=== PATIENT | female | born 1945 | race Caucasian/White ===

== ENCOUNTER 2024-07-04 05:21 | Inpatient (IN) | payer MEDICARE, OTHER, SELFPAY ==
[2024-07-03 22:47] VITALS: BP 119/61
[2024-07-03 23:42] LABS: COVID-19 Antigen Negative (Negative)
[2024-07-04] VITALS (20 sets, daily range): BP systolic 93–146; BP diastolic 39–75
[2024-07-04 00:28] LABS: ALT (SGPT) < 10 U/L (0-35); AST (SGOT) 23 U/L (14-36); Alkaline Phosphatase 68 U/L (38-126); Blood Urea Nitrogen 40 mg/dl (7-17); Calcium 8.4 mg/dl (8.4-10.2); Carbon Dioxide 26 mmol/L (22-30); Chloride 104 mmol/L (98-107); Estimated Creatinine Clearance 23 ml/min; Glucose 169 mg/dl (70-99); Potassium 3.9 mmol/L (3.5-5.1); Sodium 139 mmol/L (135-145); Total Bilirubin 0.6 mg/dl (0.2-1.3); Total Protein 6.2 g/dl (6.3-8.2); eGFR 28.13
[2024-07-04 00:35] LABS: % Basophils 0.6 % (0-2); % Eosinophils 0.1 % (0-6); % Immature Granulocytes 1.5 % (0-0.5); % Monocytes 5.8 % (1.7-9.3); Absolute Immature Granulocytes 0.1 10^3/uL (0-0.05); Absolute Lymphocytes 1.3 10^3/uL (1.2-3.4); Absolute Monocytes 0.4 10^3/uL (0.1-0.6); Absolute Neutrophils 4.9 10^3/uL (1.4-6.5); Hematocrit 34.8 % (37.0-47.0); Hemoglobin 10.9 g/dL (12.0-16.0); Mean Corp Hgb Conc. 31.3 g/dL (33.0-37.0); Mean Corpuscular Volume 105.5 fL (81.0-99.0); Mean Platelet Volume 10.5 fL (7.4-10.4); Nucleated Red Blood Cells % 0 %; Platelet Count 172 10^3/uL (130-400); Red Cell Dist. Width 13.4 % (11.5-14.5); White Blood Cell Count 6.7 10^3/uL (4.8-10.8)
[2024-07-04 00:38] LABS: NT-proBNP 8670 pg/ml
--- NOTE | 2024-07-04 01:52 | ED.GENMED ---
History of Present Illness
General
Chief Complaint: Breathing Problem
Time Seen by Provider: 07/04/24 01:06
History of Present Illness
History of Present Illness:
Patient is a 79-year-old woman with history of CHF, hypertension, hyperlipidemia presenting to the emergency department shortness of breath. Patient states that she has been feeling more short of breath as been having a productive cough. No
fevers. No chest pain. She has been compliant with her Eliquis. She does state that she is on a water pill But does state that she feels slightly swollen. Per medics her facility found her to have oxygen saturation in the mid 80s so they called
EMS. On their arrival they placed her on nasal cannula and brought her to the emergency department for further evaluation.
Past History
Past History
ED Past Medical History: CAD, CHF, GERD, HTN, Hypercholesterolemia, NIDDM, Psychiatric, Other (Anemia) and Other
ED Past Surgical History: Gynecological (Hysterectomy) and Orthopedic (Bilateral hip replacements, bilateral knee replacements, rotator cuff repair)
Social History
Tobacco: Non-smoker
Alcohol: None
Personal:
Living: [facility] ([facility])
Employment: Retired
Family History
Family History: Other (Noncontributory)
Phy Exam
Physical Exam
Physical Exam:
GENERAL: in no acute distress
HEENT: normocephalic, extraocular movements intact, moist oral mucosa
NECK: normal inspection
RESPIRATORY: no respiratory distress, crackles in all lung jarrett
CARDIOVASCULAR: regular rate and rhythm
ABDOMEN/: soft, non-distended, non-tender to palpation, no rebound or guarding
EXTREMITIES: non-tender, mild edema/swelling
NEUROLOGIC: awake and alert, moves all extremities
SKIN: warm
Scores
Heart Failure Risk
Heart Failure Risk Score: Yes
History of Stroke or TIA: No
History of intubation for respiratory distress: No
Heart rate on ED arrival >/= 110: No
SaO2 <90% on arrival on room air: Yes
HR >/=110 during 3min walk test (or too ill to perform test): Yes
ECG has acute ischemic changes: No
Urea >/=12mmol/L (BUN 33.6mg/dL): Yes
Serum CO2>/=35mmol/L: No
Troponin I or T elevated to NC Level (0.4mg/dL): No
NT-proBNP >/=5,000ng/L (5,000pg/ml): Yes
HF Risk Score: 5
Admission Status: VERY HIGH RISK 39.8% Consider admission to hospital
Course
Orders/Labs/Results
Orders:
Orders
07/03/24 22:53
EKG [Electrocardiogram (*1)] Urgent
Reason for Study: Shortness of Breath
Complete Blood Count/With Diff Urgent
Comprehensive Metabolic Panel Urgent
Pro-BNP [NT-proBNP] Urgent
07/03/24 22:54
EKG- Treatment ONCE
07/03/24 23:08
COVID-19 Antigen Urgent
Source: Nasal Swab
Influenza A+B Rapid Molecular Urgent
YESSENIA Source: Nasal Swab
Specimen Description:
07/04/24 01:06
CR Chest - 2 Views Urgent
Comment:
Reason For Exam: sob
07/04/24 02:22
Furosemide [Lasix] 20 mg IV NOW STA
Abnormal Lab Results
07/04/24 07/04/24
00:04 00:05
RBC 3.30 L 10^6/uL
(4.20-5.40)
Hgb 10.9 L g/dL
(12.0-16.0)
Hct 34.8 L %
(37.0-47.0)
MCV 105.5 H fL
(81.0-99.0)
MCH 33.0 H pg
(27.0-31.0)
MCHC 31.3 L g/dL
(33.0-37.0)
MPV 10.5 H fL
(7.4-10.4)
Abs Immat Gran (auto) 0.1 H 10^3/uL
(0-0.05)
Immature Gran % 1.5 H %
(0-0.5)
Lymphocytes % 19.0 L %
(20.5-51.1)
BUN 40 H mg/dl
(7-17)
Creatinine 1.8 H mg/dL
(0.6-1.0)
Glucose 169 H mg/dl
(70-99)
Total Protein 6.2 L g/dl
(6.3-8.2)
Albumin 3.0 L g/dl
(3.5-5.0)
07/04/24 00:05
07/04/24 00:04
Vital Signs
Initial and Last Documented VS:
Initial Vital Signs
Temp Pulse Ox
98 F 96
07/03/24 22:46 07/03/24 22:46
Last Documented Vital Signs
Temp Pulse Resp BP Pulse Ox
98.2 F 90 26 125/58 96
07/04/24 01:16 07/04/24 00:02 07/04/24 00:02 07/04/24 00:02 07/04/24 00:02
MDM/Problems Addressed
Differential Diagnosis Includes:
Patient is a 79-year-old female with history of CHF presenting to the emergency department with shortness of breath and a productive cough. On arrival here patient requiring 2 L nasal cannula. She does have fine rales in all lung jarrett. Concern
for CHF exacerbation versus pneumonia versus viral. Considered PE though less likely as she is on a blood thinner. Blood work obtained prior to my evaluation does show significantly elevated BNP EKG per my interpretation normal sinus rhythm. Will
obtain chest x-ray. COVID flu negative.
*Critical Care Note
Total Time (30-74mins, 75-104mins- exclusive of procedures): Not Applicable
Update Note
Update Note:
Chest x-ray per my interpretation with mild pulmonary congestion. Possible right lower lobe opacity the patient is afebrile with a normal white count so we will hold off on on antibiotic. Patient is on 20 mg of Lasix so we will give that IV.
Discussed with hospitalist who accepted patient to their service
ED Attending Note
-
Portions of this chart may have been created with voice recognition software.� Occasional wrong word or��sound alike� substitutions may have occurred due to the inherent limitations of voice recognition software.
Discharge Plan
Departure
Patient Disposition: Admit
Date of Disposition: 07/04/24
Time of Disposition: 02:24
Presentation/result/management discussed w/ accepting MD/DO: Hospitalist
Discharge Problem:
CHF exacerbation
Prescriptions:
No Action
Eliquis 2.5 MG tablet
2.5 mg PO BID
cyanocobalamin (vitamin B-12) 1,000 MCG tablet
1,000 mcg PO DAILY
magnesium 250 MG tablet
500 mg PO FR
carvedilol 6.25 MG tablet
12.5 mg PO BID
atorvastatin 10 MG tablet
10 mg PO QPM
estradiol 1 MG tablet
1 mg PO DAILY
fluticasone propionate 1 SPRAY spray,suspension
1 spray intranasal BID
furosemide 20 MG tablet
20 mg PO DAILY
acetaminophen 325 MG tablet
650 mg PO Q4HPRN PRN (Reason: mild pain/ fever>100.5F) 0RF
bisacodyl [OneLAX Bisacodyl] 10 MG suppository
10 mg ND DAILYPRN PRN (Reason: if mom ineffective) 0RF
insulin aspart U-100 100 unit/mL Solution
0 unit SC ACHS
Rx Instructions:
151-200=3units, 201-250=5units, 251-300=8units, 301-350=10units
Fleet Enema 19-7 gram/118 mL Enema
118 ml ND DAILYPRN PRN (Reason: if no bm aftr dulcolax)
duloxetine [Cymbalta] 30 mg Capsule,Delayed Release(Dr/Ec)
60 mg PO DAILY
polyethylene glycol 3350 17 GRAMS powder in packet
17 grams PO DAILY
tamsulosin 0.4 MG capsule
0.4 mg PO DAILY
pantoprazole 40 MG tablet,delayed release (DR/EC)
40 mg PO DAILY
sodium bicarbonate 650 mg Tablet
650 mg PO BID Qty: 28 0RF
sennosides [senna] 8.6 mg Tablet
17.2 mg PO HS
doxycycline hyclate 100 mg Capsule
100 mg PO BID
Rx Instructions:
end 07/05/2024
insulin glargine 100 unit/mL Solution
14 unit SC HS
ammonium lactate [AmLactin] 12 % Lotion
1 applic TOPICAL DAILY
guaifenesin 600 mg Tablet Extended Release
600 mg PO BID
Rx Instructions:
end date 07/07/2024
dextrose [Glutose-15] 40 % Gel
15 g PO Q1 PRN (Reason: hypoglycemic )
loperamide [Imodium A-D] 2 mg Tablet
2 mg PO Q6H PRN (Reason: diarrhea)
melatonin 3 mg Tablet
6 mg PO HS
levothyroxine 25 mcg Tablet
25 mcg PO DAILY
insulin aspart U-100 100 unit/mL Solution
3 unit SC ACHS
ferrous sulfate 325 mg (65 mg iron) Tablet
325 mg PO BID
Milk of Magnesia-Cascara Suspension
30 ml PO Q3D PRN (Reason: constipation)
mupirocin 2 % Ointment
TOPICAL DAILY
Rx Instructions:
end date 07/10/2024
Throat Lozenges Lozenge
1 mohsen MUCOUS MEMBRANE Q30M PRN (Reason: cough)
menthol-zinc oxide [Moisture Barrier Ointment] 0.44-20.6 % Ointment
TOPICAL DAILY
glucagon HCl [Glucagon (HCl) Emergency Kit] 1 mg Recon Soln
1 mg SC Q30M PRN (Reason: hypoglycemia)
Florastor
Referrals:
UNKNOWN,NO INTERVIEW [Family Provider] -
Interventions
Interventions:
*Risk Screen - Suicide Last Done: 07/03/24 22:46
*General Assessment Last Done: 07/03/24 22:46
*Neglect/Abuse Screening Last Done: 07/03/24 22:46
*ED- Fall Risk Assessment Last Done: 07/03/24 22:46
*ED COVID-19 Vaccine History Last Done: 07/03/24 22:46
ED- Cardiac Assessment Last Done: 07/03/24 22:46
ED- Pulmonary Assessment Last Done: 07/03/24 22:46
Discharge Date and Time
Print Language: SERBIAN
[2024-07-04] MEDS: LASIX 20 MG IV (02:36)
--- NOTE | 2024-07-04 04:52 | HPS.HSE ---
Family Physician
-
Family Physician: NO INTERVIEW UNKNOWN
Chief Complaint
-
Shortness of breath
History of Present Illness
This is a 79-year-old female past medical history of insulin-dependent diabetes, hypertension, CHF with preserved EF, obesity, CKD 4, rheumatoid arthritis presenting to the emergency department with shortness of breath.
Patient quite fatigued and sleepy when I spoke to her she was not able to provide much history. According to the transfer report the patient was transferred due to productive cough and rhonchi. She has some generalized malaise. The measured pulse
ox and was in the low 80s. She was given DuoNebs 4:30 PM with reports treatment pulse ox of 89%. She is not on home O2 at baseline. Did not describe any fevers or chills. She has not had any aspiration. It appears she was started on respiratory
tx with doxycycline and cough medications prior to transfer to ED.
In the emergency department she was hypoxic requiring 2 L satting 95%. Blood pressure was 115/60 with a pulse of 82. ECG shows normal sinus rhythm at a rate of 1 and PACs. BNP was elevated at over 8000. X-ray shows bilateral interstitial
infiltrates mild prominent on the right. CBC was unremarkable with a hemoglobin of 10.9 normal WBCs and platelets. Electrolytes were stable. BUN and creatinine were 40 and 1.8 which is similar to her baseline. Negative COVID and flu test.
Medical History
Past Medical History
Past Medical History: Reports Other (Hypertension, hyperlipidemia, CKD stage III, ambulatory dysfunction due to right knee bob wound back 2019, CHF, GERD, CAD, DVT, C. difficile in the past.)
Past Surgical History: Reports Other (Hysterectomy, bilateral hip replacement, bilateral knee replacement, rotator cuff repair, IVC filter.)
Social History
Tobacco: Non-smoker
Alcohol: None
Drug: None
Family History
Family History: Other (No premature CAD)
Allergies / Home Medications
Allergies reflects when Allergies were last updated in [facility].
Home Medications with original date entered in [facility]
Allergy/Medication List:
Allergies
Allergy/AdvReac Type Severity Reaction Status Date / Time
daptomycin Allergy CK>5000 Verified 07/03/24 22:45
doxylamine Allergy leg Verified 07/03/24 22:45
weakness
lactose Allergy INTOLERANT Verified 07/03/24 22:45
morphine Allergy Nausea / Verified 07/03/24 22:45
Vomiting
Penicillins Allergy Swelling/ch Verified 07/03/24 22:45
ildhood
Home Medications
apixaban 2.5 mg tablet (Eliquis) 2.5 mg PO BID Blood clot prevention/tx 11/23/20
cyanocobalamin (vitamin B-12) 1,000 mcg tablet 1,000 mcg PO DAILY Supplement 12/19/20
magnesium 250 mg tablet 500 mg PO FR Supplement 12/19/20
atorvastatin 10 mg tablet 10 mg PO QPM High cholesterol 05/18/21
carvedilol 6.25 mg tablet 12.5 mg PO BID Heart disease/condition 05/18/21
estradiol 1 mg tablet 1 mg PO DAILY Hormonal agent 05/18/21
fluticasone propionate 50 mcg/actuation nasal spray,suspension 1 spray intranasal BID Congestion 05/18/21
furosemide 20 mg tablet 20 mg PO DAILY Fluid retention/Swelling 05/19/21
acetaminophen 325 mg tablet 650 mg (2 x 325 mg) PO Q4HPRN PRN mild pain/ fever>100.5F 05/27/21
bisacodyl 10 mg rectal suppository (OneLAX Bisacodyl) 10 mg OR DAILYPRN PRN if mom ineffective 05/27/21
duloxetine 30 mg capsule,delayed release (Cymbalta) 60 mg PO DAILY Mental Health/Anxiety 01/18/23
insulin aspart U-100 100 unit/mL subcutaneous solution 0 unit SC ACHS Diabetes 01/18/23
pantoprazole 40 mg tablet,delayed release 40 mg PO DAILY Gastrointestinal Issue 01/18/23
polyethylene glycol 3350 17 gram oral powder packet 17 grams PO DAILY Constipation 01/18/23
sodium phosphates 19 gram-7 gram/118 mL enema (Fleet Enema) 118 ml OR DAILYPRN PRN if no bm aftr dulcolax 01/18/23
tamsulosin 0.4 mg capsule 0.4 mg PO DAILY Urinary Issue 01/18/23
sodium bicarbonate 650 mg tablet 650 mg PO BID #28 tabs 01/22/23
Florastor 07/04/24
ammonium lactate 12 % lotion (AmLactin) 1 applic topical DAILY 07/04/24
phongara sagrosauraa-mag hydroxide oral suspension 30 ml PO Q3D PRN constipation 07/04/24
dextrose 40 % oral gel (Glutose-15) 15 g PO Q1 PRN hypoglycemic 07/04/24
doxycycline hyclate 100 mg capsule 100 mg PO BID 07/04/24
ferrous sulfate 325 mg (65 mg iron) tablet 325 mg PO BID 07/04/24
glucagon HCl 1 mg solution for injection (Glucagon (HCl) Emergency Kit) 1 mg SC Q30M PRN hypoglycemia 07/04/24
guaifenesin 600 mg tablet,extended release 600 mg PO BID 07/04/24
insulin aspart U-100 100 unit/mL subcutaneous solution 3 unit SC ACHS 07/04/24
insulin glargine 100 unit/mL subcutaneous solution 14 unit SC HS 07/04/24
levothyroxine 25 mcg tablet 25 mcg PO DAILY 07/04/24
loperamide 2 mg tablet (Imodium A-D) 2 mg PO Q6H PRN diarrhea 07/04/24
melatonin 3 mg tablet 6 mg PO HS 07/04/24
menthol 0.44 %-zinc oxide 20.6 % topical ointment (Moisture Barrier Ointment) topical DAILY 07/04/24
menthol-sorbitol lozenges 1 mohsen mucous membrane Q30M PRN cough 07/04/24
mupirocin 2 % topical ointment topical DAILY 07/04/24
sennosides 8.6 mg tablet (senna) 17.2 mg PO HS 07/04/24
Review of Systems
-
Unable to obtain full review of systems at this time due to: Patient Non-verbal
Physical Exam
Vital Signs
Vital Signs
Temp Pulse Resp BP Pulse Ox
98.2 F 82 24 114/59 96
07/04/24 01:16 07/04/24 02:36 07/04/24 02:23 07/04/24 02:36 07/04/24 02:23
Physical Exam
General: No Apparent Distress and Morbidly Obese
HEENT: NormoCephalic, Anicteric, Moist mucous membranes, Atraumatic and Oxygen
Respiratory: Clear (Clear anteriorly, could not move around to auscultate posteriorly)
Cardiac: S1/S2 and Regular Rhythm
Breast: Deferred by me
GI: Soft, Non Tender, Non Distended and Normal Bowel Sounds
Rectal: Deferred by Provider
Genito-urinary: Deferred by me
Musculoskeletal: No Clubbing, No Cyanosis, Edema, Left Lower Extremity (1+) and Edema, Right Lower Extremity (1+)
Skin: Warm and Other (Right foot second toe wound clean dry and intact, dressing change reported as 416)
Neuro: Nonfocal/grossly intact and Other (Patient very sleepy but easily arousable, able to answer simple questions but then goes back to sleep. Unable to participate fully in examination.)
Hematologic/Lymphatic: Lymphadenopathy
Psych: Calm
Laboratory Results
-
07/04/24 00:05
07/04/24 00:04
Laboratory Results
Total Bilirubin 0.6 mg/dl (0.2-1.3) 07/04/24 00:04
AST 23 U/L (14-36) 07/04/24 00:04
ALT < 10 U/L (0-35) 07/04/24 00:04
Alkaline Phosphatase 68 U/L (38-126) 07/04/24 00:04
Data Reviewed
-
Diagnostic Radiology: Image Personally Visualized and interpreted
Medical Tests (Nuc Med, Echo, EKG etc): Image Personally Visualized and interpreted
Lab Data: Labs Reviewed by me
Old Records: Reviewed
Impression/Plan
-
IMPRESSION:
This is a 79-year-old female with history of CKD stage IV, CHF with preserved EF, last EF was 74% with diastolic dysfunction, morbid obesity, insulin-dependent diabetes who is here from [facility] for shortness of breath and hypoxia. She has no
chest pain. ECG is nonischemic. Troponin measured. Her BNP is elevated at 8000 which is higher than the chronically elevated levels of around 3-5000. The x-ray with bilateral infiltrates consistent with pulmonary edema. Exam shows 1+ bilateral
lower extremity edema. No flu/covid.
PLAN:
1. CHF exacerbation - Suspect cough and hypoxia 2/2 CHF exacerbation rather than acute infection although possibility remains
- admit to telemetry
- continue lasix 40mg iv q 12 for now
- follow creatinine, i/os and daily weights
- incentive spirometry and duonebs
- check procalcitonin. Start abx if positive or patient febrile.
- echo in am
- cardiology consultation
2. CKD - Patient at baseline creatinine compared to prior
- avoid nephrotoxins
- monitor creatinine with more aggressive diuresis above
- renal dose medications
- continue tamsulorin for reflux uropathy
- continue bicarb orally for now
- no indication for nephrology consult
3. DM II
- continue insulin regimen, 14 lantus hs, 3 aspart ac
- low dose sliding scale insulin achs
DVT PPX - apixaban 2.5 bid
Code status - Full Code
[2024-07-04 07:09] LABS: Blood Urea Nitrogen 41 mg/dl (7-17); Calcium 8.5 mg/dl (8.4-10.2); Carbon Dioxide 27 mmol/L (22-30); Chloride 104 mmol/L (98-107); Estimated Creatinine Clearance 22 ml/min; Glucose 146 mg/dl (70-99); Magnesium 1.7 mg/dl (1.6-2.3); Potassium 3.9 mmol/L (3.5-5.1); Sodium 142 mmol/L (135-145); eGFR 26.36
[2024-07-04 07:26] LABS: Procalcitonin 0.14 ng/ml (0.0-0.25)
[2024-07-04 07:40] LABS: TSH Reflex To Free T4 1.33 uIU/ml (0.47-4.68)
--- NOTE | 2024-07-04 08:46 | CON.CAR ---
Consultation
Consultation Request
Date/Time Consultation Requested: 07/04/24 5:59
Date/Time Consultation Performed: 07/04/24 8:47
Requesting Provider: Bonnie Jhaveri MD
Performing Provider: Jose Antonio Catalan MD
Reason for Consultation: concern for CHF
Medical History
-
Chief Complaint: SOB, cough
History of Present Illness:
Jocelyn Huitron is an 79-year-old female (previously known to Dr. 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
hypertension, rheumatoid arthritis, fibromyalgia, renal insufficiency, obesity, and dementia. She presents to the ER for shortness of breath and productive cough, found to have hypoxia at her facility. She does not wear oxygen normally but is
requiring nasal cannula here. She reports that her cough is somewhat improved. She denies swelling or orthopnea. She was given 20 mg IV Lasix in the ER.
Past Medical History
Past Medical History: Other (as above)
Social History
Tobacco: Non-Smoker
Personal: Single
Living: Prison
Family History
Family History: Reviewed & Not Pertinent
Allergies / Home Medications
Allergy/AdvReac Type Severity Reaction Status Date / Time
daptomycin Allergy CK>5000 Verified 07/03/24 22:45
doxylamine Allergy leg Verified 07/03/24 22:45
weakness
lactose Allergy INTOLERANT Verified 07/03/24 22:45
morphine Allergy Nausea / Verified 07/03/24 22:45
Vomiting
Penicillins Allergy Swelling/ch Verified 07/03/24 22:45
ildhood
�Medication �Instructions �Recorded �Confirmed �Type
apixaban 2.5 mg tablet (Eliquis) 2.5 mg PO BID Blood clot 11/23/20 07/04/24 History
prevention/tx
cyanocobalamin (vitamin B-12) 1,000 mcg PO DAILY Supplement 10/03/21 04/18/25 History
1,000 mcg tablet
magnesium 250 mg tablet 500 mg PO FR@0800 Supplement 12/19/20 07/04/24 History
atorvastatin 10 mg tablet 10 mg PO HS High cholesterol 05/18/21 07/04/24 History
carvedilol 6.25 mg tablet 12.5 mg PO BID Heart 05/18/21 07/04/24 History
disease/condition
estradiol 1 mg tablet 1 mg PO DAILY Hormonal agent 05/18/21 07/04/24 History
fluticasone propionate 50 1 spray intranasal BID Congestion 05/18/21 07/04/24 History
mcg/actuation nasal
spray,suspension
acetaminophen 325 mg tablet 650 mg (2 x 325 mg) PO Q4HPRN PRN 05/27/21 07/04/24 Rx
mild pain/ fever>100.5F
bisacodyl 10 mg rectal suppository 10 mg GA DAILYPRN PRN if mom 05/27/21 07/04/24 Rx
(OneLAX Bisacodyl) ineffective
duloxetine 30 mg capsule,delayed 60 mg PO DAILY Mental 01/18/23 07/04/24 History
release (Cymbalta) Health/Anxiety
pantoprazole 40 mg tablet,delayed 40 mg PO DAILY Gastrointestinal 01/18/23 07/04/24 History
release Issue
polyethylene glycol 3350 17 gram 17 grams PO DAILY Constipation 01/18/23 07/04/24 History
oral powder packet
sodium phosphates 19 gram-7 118 ml GA DAILYPRN PRN if no bm 01/18/23 07/04/24 History
gram/118 mL enema (Fleet Enema) aftr dulcolax
tamsulosin 0.4 mg capsule 0.4 mg PO DAILY Urinary Issue 01/18/23 07/04/24 History
sodium bicarbonate 650 mg tablet 650 mg PO BID #28 tabs 01/22/23 07/04/24 Rx
Saccharomyces boulardii 250 mg 250 mg PO DAILY 07/04/24 07/04/24 History
capsule (Florastor)
ammonium lactate 12 % lotion 1 applic topical DAILY bue/ble 07/04/24 07/04/24 History
(AmLactin)
doxycycline hyclate 100 mg capsule 100 mg PO BID 07/04/24 07/04/24 History
eucalyptus-menthol oral mucosal 3.1 mg mucous membrane [id number] PRN 07/04/24 07/04/24 History
lozenge cough
ferrous sulfate 325 mg (65 mg 325 mg PO BID 07/04/24 07/04/24 History
iron) tablet
furosemide 20 mg tablet (Lasix) 20 mg PO DAILY 07/04/24 07/04/24 History
glucagon HCl 1 mg solution for 1 mg SC Q30M PRN hypoglycemia 07/04/24 07/04/24 History
injection (Glucagon (HCl)
Emergency Kit)
guaifenesin 600 mg tablet, 600 mg PO BID 07/04/24 07/04/24 History
extended release 12 hr (Mucinex)
insulin aspart U-100 100 unit/mL 3 unit SC AC 07/04/24 07/04/24 History
subcutaneous solution
insulin glargine 100 unit/mL 14 unit SC HS 07/04/24 07/04/24 History
subcutaneous solution
ipratropium 0.5 mg-albuterol 3 mg 3 ml inhalation R Q6HPRN PRN sob 07/04/24 07/04/24 History
(2.5 mg base)/3 mL nebulization
soln
levothyroxine 25 mcg tablet 25 mcg PO DAILY 07/04/24 07/04/24 History
loperamide 2 mg tablet (Imodium 2 mg PO Q6HPRN PRN diarrhea 07/04/24 07/04/24 History
A-D)
magnesium hydroxide 400 mg/5 mL 2,400 mg PO DAILYPRN PRN if no bm 07/04/24 07/04/24 History
oral suspension (Milk of Magnesia) by 3rd day
melatonin 3 mg tablet 6 mg PO HS 07/04/24 07/04/24 History
menthol 0.44 %-zinc oxide 20.6 % 1 applic topical TID incontinence 07/04/24 07/04/24 History
topical ointment (Moisture Barrier care
Ointment)
mupirocin 2 % topical ointment 1 applic topical DAILY right great 07/04/24 07/04/24 History
toe
sennosides 8.6 mg tablet (senna) 17.2 mg PO HS 07/04/24 07/04/24 History
sodium phosphates 19 gram-7 118 ml GA DAILYPRN PRN if no bm 07/04/24 07/04/24 History
gram/118 mL enema (Fleet Enema) aftr dulolcax
Review of Systems
-
Unable to obtain full review of systems at this time due to: Dementia
Physical Exam
Vital Signs
Temp Pulse Resp BP Pulse Ox
98.2 F 84 21 125/51 93
07/04/24 01:16 07/04/24 07:30 07/04/24 07:30 07/04/24 07:00 07/04/24 05:15
Lab Results
07/04/24 00:05
07/04/24 06:33
Jwr-[id number]-Hilpxwayjif Pept 8670 pg/ml 07/04/24 00:04
Physical Exam
General: Other (Chronically ill-appearing, possibly bedbound)
HEENT: Normocephalic
Respiratory: Crackles, Rhonchi and Non Labored Respirations
Cardiac: S1/S2; Negative Murmur or Peripheral Edema
Impression / Plan
-
Jocelyn Huitron is an 79-year-old female (previously known to Dr. León, last seen in our office 2020) with HFpEF, hypertension, insulin-dependent diabetes, pulmonary hypertension, CKD, and dementia. Cardiology is consulted due to concern for
HFpEF exacerbation.
Acute on chronic HFpEF
-Severe exacerbation requiring IV diuresis and close monitoring of labs and telemetry
-Presented with cough and shortness of breath. BNP 8670. CXR with interstitial edema. Weight fairly stable from prior admissions.
-Continue diuresis with 40 mg IV Lasix twice daily (suspect she will not need a lot of diuresis given weight at her baseline)
-Follow-up echocardiogram
Paroxysmal atrial fibrillation?
-She is on beta-giselle and Eliquis. No documented atrial fibrillation that I can see from outpatient notes or inpatient records
-I have reached out to her daughter and waiting to hear back
Pulmonary hypertension, likely group 2
-Follow-up repeat echo
-May be contributing to SOB
CKD: At baseline, trend Cr with diuresis
Diabetes: Per primary
Hyperlipidemia: Continue statin
Data Reviewed
-
EKG: Tracing Personally Visualized and interpreted
Radiology: Image Personally Visualized and interpreted
Medical Tests (Nuc Med, Echo etc): Report Reviewed by me
Labs: Labs Reviewed by me, Discussed with Patient and Discussed with Family
[2024-07-04] MEDS: FLOMAX 0.4 MG PO (09:54)
[2024-07-04] MEDS: FEOSOL 325 MG PO ×2 (09:54→22:50)
[2024-07-04] MEDS: MIRALAX PO (09:54)
[2024-07-04] MEDS: SYNTHROID 25 MCG PO (09:54)
[2024-07-04] MEDS: PROTONIX 40 MG PO (09:54)
[2024-07-04] MEDS: MUCINEX 600 MG PO ×2 (09:54→22:49)
[2024-07-04] MEDS: COREG 12.5 MG PO ×2 (09:55→22:49)
[2024-07-04] MEDS: CYMBALTA DELAYED RELEASE 60 MG PO (09:55)
[2024-07-04] MEDS: SODIUM BICARBONATE 650 MG PO ×2 (09:55→22:49)
[2024-07-04] MEDS: ELIQUIS 2.5 MG PO ×2 (09:55→22:49)
[2024-07-04] MEDS: LASIX 40 MG IV ×2 (09:55→17:13)
[2024-07-04] MEDS: ESTRACE 1 MG PO (09:55)
[2024-07-04] MEDS: LAC HYDRIN, AM LACTIN LOTION 1 APPLIC TOPICAL (09:56)
--- NOTE | 2024-07-04 11:43 | W.PN.HOSP.TC ---
Today's Communication/Plan
-
continue diuresis
monitor renal function
Assessment / Plan
Assessment / Plan
IMPRESSION:
This is a 79-year-old female with history of CKD stage IV, CHF with preserved EF, last EF was 74% with diastolic dysfunction, morbid obesity, insulin-dependent diabetes who is here from shelter for shortness of breath and hypoxia. She has no
chest pain. ECG is nonischemic. Troponin measured. Her BNP is elevated at 8000 which is higher than the chronically elevated levels of around 3-5000. The x-ray with bilateral infiltrates consistent with pulmonary edema. Exam shows 1+ bilateral
lower extremity edema. No flu/covid.
PLAN:
Heart Failure preserved EF Acute Exacerbation
- admitted to telemetry
- continue lasix 40mg iv q 12
- follow creatinine, i/os and daily weights
- incentive spirometry and duonebs
- echo in am
- cardiology consultation appreciated
2. CKD - Patient at baseline creatinine compared to prior
- avoid nephrotoxins
- monitor creatinine with more aggressive diuresis above
- renal dose medications
- continue tamsulosin for reflux uropathy
- continue bicarb orally for now
- no indication for nephrology consult
3. DM II
- continue insulin regimen, 14 lantus hs, 3 aspart ac
- low dose sliding scale insulin achs
patient reports hx DVT - continue [employer] Eliquis
DVT PPX - apixaban 2.5 bid
Code status - Full Code
Anticipated Discharge: 24 - 48 hours
Subjective/Interval History
-
Date of Service: July 04, 2024
feeling better this morning
urinating a lot
Objective Data
-
Labs:
Laboratory Results
07/04/24 07/04/24 07/04/24
00:04 00:05 06:33
WBC 6.7
Hgb 10.9 L
Hct 34.8 L
Plt Count 172
Sodium 139 142
Potassium 3.9 3.9
Chloride 104 104
Carbon Dioxide 26 27
BUN 40 H 41 H
Creatinine 1.8 H 1.9 H
Glucose 169 H 146 H
Calcium 8.4 8.5
Total Bilirubin 0.6
AST 23
ALT < 10
Alkaline Phosphatase 68
Vital Signs:
Vital Signs
Temp Pulse Resp BP Pulse Ox
98 F 81 21 130/50 95
07/04/24 09:53 07/04/24 09:55 07/04/24 07:30 07/04/24 09:55 07/04/24 09:53
Review of Systems
-
History Source: Patient
All other systems: Reviewed and negative
Physical Exam
-
General: No Apparent Distress and Appears Chronically Ill
HEENT: PERRLA
Respiratory: Rales
Cardiac: S1/S2 and JVD
GI: Soft and Nontender
Musculoskeletal: Other (b/l contractures )
Skin: Warm and Dry; Negative Rash
Neuro: AO x 3
Psych: Calm
Data Reviewed
-
Diagnostic Radiology: Report Reviewed by me
Labs: Labs Reviewed by me
--- NOTE | 2024-07-04 15:05 | WOUNDNOTE ---
RIGHT GREAT TOE
--- NOTE | 2024-07-04 15:09 | WOUNDNOTE ---
[facility] RN NOTE: Reviewed chart and met with patient. Patient with venous stasis changes to LE with palpable pedal pules. Right great toe, slightly red, was covered with bandage from home. No open wound noted. Sacrum intact. Heels with stage 1 PI,
no-sting barrier applied and heels off-loaded with pillows under calves. Purwick in place for moisture management. Patient transferred to bed with static air overlay by this RN, and RNArlen. Will sign off.
[2024-07-04] MEDS: LIPITOR 10 MG PO (17:14)
[2024-07-04 20:29] LABS: Glucose - Point of Care 142 mg/dl (70-99)
[2024-07-04] MEDS: MELATONIN 6 MG PO (22:48)
[2024-07-04] MEDS: SENOKOT 17.2 MG PO (22:49)
[2024-07-04] MEDS: LANTUS 0.14 UNITS SC (22:50)
[2024-07-05 03:33] VITALS: BP 126/51
[2024-07-05] MEDS: SYNTHROID 25 MCG PO (05:56)
[2024-07-05 07:02] VITALS: BMI 30.6
[2024-07-05 07:37] VITALS: BP 125/50
[2024-07-05 07:50] LABS: Glucose - Point of Care 116 mg/dl (70-99)
[2024-07-05 08:06] LABS: Blood Urea Nitrogen 44 mg/dl (7-17); Calcium 8.2 mg/dl (8.4-10.2); Carbon Dioxide 28 mmol/L (22-30); Chloride 104 mmol/L (98-107); Estimated Creatinine Clearance 20 ml/min; Glucose 90 mg/dl (70-99); Magnesium 1.8 mg/dl (1.6-2.3); Potassium 3.8 mmol/L (3.5-5.1); Sodium 141 mmol/L (135-145); eGFR 24.79
[2024-07-05 08:19] LABS: Hematocrit 36.5 % (37.0-47.0); Hemoglobin 11.9 g/dL (12.0-16.0); Mean Corp Hgb Conc. 32.6 g/dL (33.0-37.0); Mean Corpuscular Hgb 33.1 pg (27.0-31.0); Mean Corpuscular Volume 101.7 fL (81.0-99.0); Mean Platelet Volume 11.3 fL (7.4-10.4); Platelet Count 168 10^3/uL (130-400); Red Blood Cell Count 3.59 10^6/uL (4.20-5.40); Red Cell Dist. Width 13.3 % (11.5-14.5); White Blood Cell Count 7.1 10^3/uL (4.8-10.8)
[2024-07-05] MEDS: ESTRACE 1 MG PO (08:40)
[2024-07-05] MEDS: MUCINEX 600 MG PO ×2 (08:40→20:43)
[2024-07-05] MEDS: PROTONIX 40 MG PO (08:40)
[2024-07-05] MEDS: ELIQUIS 2.5 MG PO ×2 (08:40→20:45)
[2024-07-05] MEDS: SODIUM BICARBONATE 650 MG PO ×2 (08:40→20:43)
[2024-07-05] MEDS: CYMBALTA DELAYED RELEASE 60 MG PO (08:40)
[2024-07-05] MEDS: LASIX 40 MG IV ×2 (08:41→17:40)
[2024-07-05] MEDS: FLOMAX 0.4 MG PO (08:41)
[2024-07-05] MEDS: FEOSOL 325 MG PO ×2 (08:41→20:45)
[2024-07-05] MEDS: COREG 12.5 MG PO ×2 (08:43→20:47)
[2024-07-05] MEDS: LAC HYDRIN, AM LACTIN LOTION 1 APPLIC TOPICAL (08:45)
[2024-07-05] MEDS: MIRALAX 17 GRAMS PO (08:56)
--- NOTE | 2024-07-05 10:14 | W.PN.HOSP.TC ---
Today's Communication/Plan
-
diuresis
Assessment / Plan
Assessment / Plan
IMPRESSION:
This is a 79-year-old female with history of CKD stage IV, CHF with preserved EF, last EF was 74% with diastolic dysfunction, morbid obesity, insulin-dependent diabetes who is here from senior care for shortness of breath and hypoxia. She has no
chest pain. ECG is nonischemic. Troponin measured. Her BNP is elevated at 8000 which is higher than the chronically elevated levels of around 3-5000. The x-ray with bilateral infiltrates consistent with pulmonary edema. Exam shows 1+ bilateral
lower extremity edema. No flu/covid.
TTE 07/04/24
CONCLUSIONS
Normal biventricular size and systolic function without regional wall motion
abnormality. LVEF 55-60%.
Mild left ventricular hypertrophy.
E to E' suggests possible elevated left atrial pressure.
No significant valvular disease.
Compared to prior echocardiogram in December 2020, study is largely unchanged.
PASP was previously severely elevated at 59 mmHg but could not be estimated on
today's study.
PLAN:
Heart Failure preserved EF Acute Exacerbation
- admitted to telemetry
- continue lasix 40mg iv q 12
- follow creatinine, i/os and daily weights
- incentive spirometry and duonebs
- echo results above
- cardiology consultation appreciated
2. CKD - Patient at baseline creatinine compared to prior
- avoid nephrotoxins
- monitor creatinine with more aggressive diuresis above
- renal dose medications
- continue tamsulosin for reflux uropathy
- continue bicarb orally for now
- no indication for nephrology consult
3. DM II
- continue insulin regimen, 14 lantus hs, 3 aspart ac
- low dose sliding scale insulin achs
patient reports hx DVT - continue [employer] Eliquis
Ambulatory Dysfunction
-patient is wheelchair and manjula lift dependent
DVT PPX - apixaban 2.5 bid
Code status - Full Code
Anticipated Discharge: 24 - 48 hours
Subjective/Interval History
-
Date of Service: July 05, 2024
feels tired this morning
Objective Data
-
Labs:
Laboratory Results
07/05/24
06:48
WBC 7.1
Hgb 11.9 L
Hct 36.5 L
Plt Count 168
Sodium 141
Potassium 3.8
Chloride 104
Carbon Dioxide 28
BUN 44 H
Creatinine 2.0 H
Glucose 90
Calcium 8.2 L
Vital Signs:
Vital Signs
Temp Pulse Resp BP Pulse Ox
97.2 F 68 16 125/50 100
07/05/24 07:37 07/05/24 07:37 07/05/24 07:37 07/05/24 07:37 07/05/24 07:37
I&O
07/04/24 07/05/24 07/06/24
06:59 06:59 06:59
Output Total 850 / 850
Balance -850 / -850
Review of Systems
-
History Source: Patient
All other systems: Reviewed and negative
Physical Exam
-
General: No Apparent Distress and Appears Chronically Ill
HEENT: PERRLA
Respiratory: Rales
Cardiac: S1/S2 and JVD
GI: Soft and Nontender
Musculoskeletal: Other (b/l contractures )
Skin: Warm and Dry; Negative Rash
Neuro: AO x 3
Psych: Calm
Data Reviewed
-
Diagnostic Radiology: Report Reviewed by me
Labs: Labs Reviewed by me
[2024-07-05 11:06] VITALS: BP 117/49
[2024-07-05] MEDS: KCL 20 MEQ PO (11:24)
[2024-07-05 11:45] LABS: Glucose - Point of Care 123 mg/dl (70-99)
[2024-07-05 15:06] VITALS: BP 122/55
[2024-07-05 16:39] LABS: Glucose - Point of Care 205 mg/dl (70-99)
[2024-07-05] MEDS: LIPITOR 10 MG PO (17:40)
--- NOTE | 2024-07-05 17:44 | W.PN.CD ---
Today's Communication / Plan
-
Continue diuresis
If no improvement by tomorrow, would recommend chest CT
Impression / Plan
-
Jocelyn Huitron is an 79-year-old female (previously known to Dr. León, last seen in our office 2020) with HFpEF, hypertension, insulin-dependent diabetes, pulmonary hypertension, CKD, and dementia. Cardiology is consulted due to concern for
HFpEF exacerbation.
Acute on chronic HFpEF
-TTE 07/04/2024: LVEF 55-60%, mild LVH, probable elevated left atrial pressure, no significant valvular disease
-Severe exacerbation requiring IV diuresis and close monitoring of labs and telemetry
-Presented with cough and shortness of breath. BNP 8670. CXR with interstitial edema. Weight fairly stable from prior admissions.
-Continue diuresis with 40 mg IV Lasix twice daily (suspect she will not need a lot of diuresis given weight at her baseline)
- If no improvement in the next couple of days, would recommend chest CT
Paroxysmal atrial fibrillation?
-She is on beta-giselle and Eliquis. No documented atrial fibrillation that I can see from outpatient notes or inpatient records
-I spoke with her daughter who did not know and recommended I reach out to Dr. Hale, but unfortunately she has not seen him since 2022 and was not on AC at that time
Pulmonary hypertension, likely group 2
-Unable to estimate PASP on echo from 07/04/2024
-May be contributing to SOB
CKD: At baseline, trend Cr with diuresis
Diabetes: Per primary
Hyperlipidemia: Continue statin
Subjective: Continues to have a bad cough. No improvement.
Physical Exam
Vital Signs/Labs
Vital Signs
Temp Pulse Resp BP Pulse Ox
97.3 F 64 17 122/55 98
07/05/24 15:06 07/05/24 15:06 07/05/24 15:06 07/05/24 15:06 07/05/24 15:06
07/04/24 07/05/24 07/06/24
06:59 06:59 06:59
Actual Weight 168 lb 10.458 oz 156 lb 8 oz
07/05/24 06:48
07/05/24 06:48
Magnesium 1.8 mg/dl (1.6-2.3) 07/05/24 06:48
07/04/24
00:04
Hry-W-Anyytvlsfux Pept 8670
Physical Exam
Constitutional: Comfortable
Cardiovascular: Rhythm & rate is regular and Pedal edema is absent
Respiratory: Respiratory effort normal, Wheeze Present, Crackles Present and Rhonchi Present
Data Reviewed
-
Date of Service: July 05, 2024
Medical Decision Making: Reviewed Test Results, Independent Historian Assessment, Test Interpretation and Review of Case with other Provider
EKG: Tracing Personally Visualized and interpreted
Echo: Report Reviewed by me
X-Ray/CT/US/MRI/NUC/PET: Image Personally Visualized and interpreted
Labs: Labs Reviewed by me
--- NOTE | 2024-07-05 18:17 | W.PN.UPDATE ---
Update Note
Progress Note Update
Discussed with Cardiology, patient remains fatigued with cough.
CXR on admission showed possible pneumonia. Procal was 0.14 and therefore antibiotics weren't started but given lack of improvement with diuresis today; will start treatment for CAP with Cef/Azithro. Patient has been given cephalosporins (Kelfex)
in past so should tolerate Ceftriaxone.
[2024-07-05] MEDS: ZITHROMAX 500 MG PO (18:36)
[2024-07-05 19:00] VITALS: BP 125/57
[2024-07-05] MEDS: TYLENOL 650 MG PO (20:43)
[2024-07-05] MEDS: SENOKOT 17.2 MG PO (20:44)
[2024-07-05] MEDS: MELATONIN 6 MG PO (20:44)
[2024-07-05] MEDS: ROCEPHIN 1000 MG IV (20:45)
[2024-07-05] MEDS: STERILE WATER FOR INJECTION 10 ML IV (20:46)
[2024-07-05 21:44] LABS: Glucose - Point of Care 317 mg/dl (70-99)
[2024-07-05] MEDS: LANTUS 0.14 UNITS SC (22:56)
[2024-07-05 23:00] VITALS: BP 99/45
[2024-07-06 03:00] VITALS: BP 117/62
[2024-07-06 06:00] VITALS: BMI 33.5
[2024-07-06] MEDS: SYNTHROID 25 MCG PO (06:11)
[2024-07-06 07:05] VITALS: BP 143/62
[2024-07-06 07:49] LABS: Blood Urea Nitrogen 47 mg/dl (7-17); Calcium 8.3 mg/dl (8.4-10.2); Carbon Dioxide 29 mmol/L (22-30); Chloride 101 mmol/L (98-107); Estimated Creatinine Clearance 19 ml/min; Glucose 155 mg/dl (70-99); Magnesium 1.9 mg/dl (1.6-2.3); Potassium 4.1 mmol/L (3.5-5.1); Sodium 141 mmol/L (135-145); eGFR 22.11
[2024-07-06 07:50] LABS: Glucose - Point of Care 167 mg/dl (70-99)
[2024-07-06] MEDS: ELIQUIS 2.5 MG PO ×2 (09:32→20:24)
[2024-07-06] MEDS: ESTRACE 1 MG PO (09:32)
[2024-07-06] MEDS: MUCINEX 600 MG PO ×2 (09:33→20:24)
[2024-07-06] MEDS: PROTONIX 40 MG PO (09:33)
[2024-07-06] MEDS: FLOMAX 0.4 MG PO (09:34)
[2024-07-06] MEDS: CYMBALTA DELAYED RELEASE 60 MG PO (09:34)
[2024-07-06] MEDS: SODIUM BICARBONATE 650 MG PO ×2 (09:34→20:24)
[2024-07-06] MEDS: FEOSOL 325 MG PO ×2 (09:36→20:24)
[2024-07-06] MEDS: COREG 12.5 MG PO ×2 (09:36→20:24)
[2024-07-06] MEDS: MIRALAX PO (09:37)
[2024-07-06] MEDS: LASIX 40 MG IV (09:37)
[2024-07-06] MEDS: LAC HYDRIN, AM LACTIN LOTION 1 APPLIC TOPICAL (09:39)
--- NOTE | 2024-07-06 10:29 | W.PN.HOSP.TC ---
Today's Communication/Plan
-
hold Lasix for now
Cef/Azithro
recheck flu/covid
appreciate Cardiology
Assessment / Plan
Assessment / Plan
IMPRESSION:
This is a 79-year-old female with history of CKD stage IV, CHF with preserved EF, last EF was 74% with diastolic dysfunction, morbid obesity, insulin-dependent diabetes who [facility] and [facility]. CXR with
bilateral infiltrates consistent with pulmonary edema. She was admitted to medicine for treatment of heart failure. Patient with increasing cough/somnolence despite diuresis and mildly increased creatinine this morning. Decision made to start
treatment for CAP given clinical presentation and initial CXR reading.
CXR 07/04/24
IMPRESSION:
1. Mild pulmonary vascular congestion.
2. Patchy bibasilar opacities, which may represent subsegmental atelectasis, pneumonia, or alveolar pulmonary edema.
CXR 07/06/24
FINDINGS/IMPRESSION:
New band of atelectasis in the right midlung. Low lung volumes. No focal consolidation, pleural effusion, or pneumothorax. Stable cardiomediastinal silhouette.
TTE 07/04/24
CONCLUSIONS
Normal biventricular size and systolic function without regional wall motion
abnormality. LVEF 55-60%.
Mild left ventricular hypertrophy.
E to E' suggests possible elevated left atrial pressure.
No significant valvular disease.
Compared to prior echocardiogram in December 2020, study is largely unchanged.
PASP was previously severely elevated at 59 mmHg but could not be estimated on
today's study.
PLAN:
Heart Failure preserved EF Acute Exacerbation
- admitted to telemetry
- echo results above
- cardiology consultation appreciated
- S/P IV diuresis, with slightly rising creatinine and minimal PO intake will put Lasix on hold until further Cardiology eval
Community Acquired pneumonia
-patient with cough and fatigue, Cef/Azithro started on 07/05/24
-continue antibiotics
-recheck flu/covid as cough and fatigue now more pronounced
-follow up response to duonebs ordered now
-continue Mucinex
CKD - Patient at baseline creatinine compared to prior
- avoid nephrotoxins
- hold further Lasix as above
- renal dose medications
- continue tamsulosin for reflux uropathy
DM II
- continue insulin regimen, 14 lantus hs, 3 aspart ac
- low dose sliding scale insulin achs
patient reports hx DVT - continue [employer] Eliquis
Ambulatory Dysfunction
-patient is wheelchair and manjula lift dependent; PT signed off
DVT PPX - apixaban 2.5 bid
Code status - Full Code
51 minutes spent on patient care
Anticipated Discharge: 24 - 48 hours
Subjective/Interval History
-
Date of Service: July 06, 2024
very tired with cough this morning
able to wake up and answer questions
states roommate at [place] had pneumonia
Objective Data
-
Labs:
Laboratory Results
07/06/24
06:34
Sodium 141
Potassium 4.1
Chloride 101
Carbon Dioxide 29
BUN 47 H
Creatinine 2.2 H
Glucose 155 H
Calcium 8.3 L
Vital Signs:
Vital Signs
Temp Pulse Resp BP Pulse Ox
97.6 F 64 17 143/62 98
07/06/24 07:05 07/06/24 07:05 07/06/24 07:05 07/06/24 07:05 07/06/24 07:05
I&O
07/05/24 07/06/24 07/07/24
06:59 06:59 06:59
Intake Total 480 / 480
Output Total 850 / 850 250 / 250
Balance -850 / -850 230 / 230
Review of Systems
-
History Source: Patient
All other systems: Reviewed and negative
Physical Exam
-
General: No Apparent Distress, Appears Chronically Ill and Other (tired appearing, opens eyes to voice )
HEENT: PERRLA
Respiratory: Rales
Cardiac: S1/S2 and JVD
GI: Soft and Nontender
Musculoskeletal: Other (b/l contractures )
Skin: Warm and Dry; Negative Rash
Neuro: AO x 3
Psych: Calm
Data Reviewed
-
Diagnostic Radiology: Report Reviewed by me
Labs: Labs Reviewed by me
[2024-07-06 10:59] LABS: Glucose - Point of Care 134 mg/dl (70-99)
[2024-07-06 11:05] VITALS: BP 117/55
[2024-07-06] MEDS: DUONEB 3 ML INH (11:28)
[2024-07-06] MEDS: NOVOLOG FLEXPEN-LOW RESISTANCE SC ×2 (12:21→17:08)
[2024-07-06 15:05] VITALS: BP 127/63
--- NOTE | 2024-07-06 15:40 | W.PN.CD ---
Today's Communication / Plan
-
Hold Lasix for XANDER
Repeat flu/COVID
Impression / Plan
-
Jocelyn Huitron is an 79-year-old female (previously known to Dr. León, last seen in our office 2020) with HFpEF, hypertension, insulin-dependent diabetes, pulmonary hypertension, CKD, and dementia. Cardiology is consulted due to concern for
HFpEF exacerbation.
Acute on chronic HFpEF
-TTE 07/04/2024: LVEF 55-60%, mild LVH, probable elevated left atrial pressure, no significant valvular disease
-Presented with cough and shortness of breath. BNP 8670 though has been higher in the past. CXR with interstitial edema. Weight fairly stable from prior admissions.
-She has not improved despite diuresis with twice daily Lasix. Now has an XANDER.
-I am not sure that her complaints are related to heart failure. Agree with rechecking flu/COVID. Possible chest CT.
Paroxysmal atrial fibrillation?
-She is on beta-giselle and Eliquis. No documented atrial fibrillation that I can see from outpatient notes or inpatient records
-I spoke with her daughter who did not know and recommended I reach out to Dr. Hale, but unfortunately she has not seen him since 2022 and was not on AC at that time
Pulmonary hypertension, likely group 2
-Unable to estimate PASP on echo from 07/04/2024
-May be contributing to SOB
CKD: At baseline, trend Cr with diuresis
Diabetes: Per primary
Hyperlipidemia: Continue statin
Subjective: Continues to have a bad cough, sore throat, and pain everywhere. No improvement.
Physical Exam
Vital Signs/Labs
Vital Signs
Temp Pulse Resp BP Pulse Ox
97.7 F 68 17 127/63 99
07/06/24 15:05 07/06/24 15:05 07/06/24 15:05 07/06/24 15:05 07/06/24 15:05
07/05/24 07/06/2425
06:59 06:59 06:59
Actual Weight 171 lb 6.4 oz
07/05/24 06:48
07/06/24 06:34
Magnesium 1.9 mg/dl (1.6-2.3) 07/06/24 06:34
07/04/24
00:04
Cym-L-Nomhwcrkvum Pept 8670
Physical Exam
Constitutional: No acute distress
Cardiovascular: Rhythm & rate is regular, Pedal edema is absent, S1S2 is normal and Murmur/rub/gallop absent
Respiratory: Respiratory effort normal and Crackles Present
Data Reviewed
-
Date of Service: July 06, 2024
Medical Decision Making: Reviewed Test Results, Independent Historian Assessment, Test Interpretation and Review of Case with other Provider
EKG: Tracing Personally Visualized and interpreted
Echo: Report Reviewed by me
X-Ray/CT/US/MRI/NUC/PET: Report Reviewed by me
Labs: Labs Reviewed by me
[2024-07-06 16:29] LABS: COVID-19 Antigen Negative (Negative)
[2024-07-06 16:51] LABS: Glucose - Point of Care 112 mg/dl (70-99)
[2024-07-06] MEDS: ZITHROMAX 500 MG PO (17:32)
[2024-07-06] MEDS: LIPITOR 10 MG PO (17:32)
[2024-07-06] MEDS: STERILE WATER FOR INJECTION 10 ML IV (20:24)
[2024-07-06] MEDS: ROCEPHIN 1000 MG IV (20:24)
[2024-07-06 21:51] LABS: Glucose - Point of Care 191 mg/dl (70-99)
[2024-07-06] MEDS: MELATONIN 6 MG PO (21:57)
[2024-07-06] MEDS: LANTUS 0.14 UNITS SC (21:57)
[2024-07-06] MEDS: SENOKOT PO (21:58)
[2024-07-06 23:00] VITALS: BP 108/45
[2024-07-07] MEDS: SYNTHROID 25 MCG PO (05:09)
[2024-07-07 06:00] VITALS: BMI 33.4
[2024-07-07 07:05] VITALS: BP 141/69
[2024-07-07 07:42] LABS: Glucose - Point of Care 95 mg/dl (70-99)
[2024-07-07 08:25] LABS: % Basophils 0.4 % (0-2); % Eosinophils 1.5 % (0-6); % Immature Granulocytes 0.4 % (0-0.5); % Monocytes 5.3 % (1.7-9.3); % Neutrophils 76.4 % (42.2-75.2); Absolute Eosinophils 0.1 10^3/uL (0-0.7); Absolute Lymphocytes 1.1 10^3/uL (1.2-3.4); Absolute Monocytes 0.4 10^3/uL (0.1-0.6); Absolute Neutrophils 5.2 10^3/uL (1.4-6.5); Hematocrit 35.7 % (37.0-47.0); Mean Corp Hgb Conc. 30.8 g/dL (33.0-37.0); Mean Corpuscular Hgb 32.4 pg (27.0-31.0); Mean Corpuscular Volume 105.3 fL (81.0-99.0); Nucleated Red Blood Cells % 0 %; Platelet Count 191 10^3/uL (130-400); Red Blood Cell Count 3.39 10^6/uL (4.20-5.40); Red Cell Dist. Width 13.4 % (11.5-14.5); White Blood Cell Count 6.8 10^3/uL (4.8-10.8)
--- NOTE | 2024-07-07 08:30 | W.PN.HOSP.TC ---
Today's Communication/Plan
-
Antibiotics. CT of the chest.
Assessment / Plan
Assessment / Plan
Physical exam:
General: Acute on chronically ill
HEENT: Normocephalic, Atraumatic and Moist Mucous Membranes
Respiratory: Bilateral rhonchi; Negative Wheezes or Rales
Cardiac: Regular Rhythm and S1/S2
GI: Soft, Nontender and Nondistended
Musculoskeletal: No Clubbing, No Cyanosis and No Edema
Neuro: Awake, Alert and Oriented
Psych: Calm
IMPRESSION:
This is a 79-year-old female with history of CKD stage IV, CHF with preserved EF, last EF was 74% with diastolic dysfunction, morbid obesity, insulin-dependent diabetes who [facility] and [facility]. CXR with
bilateral infiltrates consistent with pulmonary edema. She was admitted to medicine for treatment of heart failure. Patient with increasing cough/somnolence despite diuresis and mildly increased creatinine this morning. Decision made to start
treatment for CAP given clinical presentation and initial CXR reading.
CXR 07/04/24
IMPRESSION:
1. Mild pulmonary vascular congestion.
2. Patchy bibasilar opacities, which may represent subsegmental atelectasis, pneumonia, or alveolar pulmonary edema.
CXR 07/06/24
FINDINGS/IMPRESSION:
New band of atelectasis in the right midlung. Low lung volumes. No focal consolidation, pleural effusion, or pneumothorax. Stable cardiomediastinal silhouette.
TTE 07/04/24
CONCLUSIONS
Normal biventricular size and systolic function without regional wall motion
abnormality. LVEF 55-60%.
Mild left ventricular hypertrophy.
E to E' suggests possible elevated left atrial pressure.
No significant valvular disease.
Compared to prior echocardiogram in December 2020, study is largely unchanged.
PASP was previously severely elevated at 59 mmHg but could not be estimated on
today's study.
PLAN:
Persistent cough:
Whether related to postinfectious cough or pneumonia or heart failure is not clear. Cardiology feels less likely heart failure and holding diuretics for now.
Will obtain CT scan of the chest
Start scheduled Mucinex
Start Acapella
Start DuoNebs as needed
Continue antibiotics
Check CRP and repeat procalcitonin--> CRP elevated and procalcitonin trending down.
Will add dextromethorphan with codeine as needed
Heart Failure preserved EF Acute Exacerbation
- admitted to telemetry
- echo results above
- cardiology consultation appreciated
- S/P IV diuresis, with slightly rising creatinine and minimal PO intake will put Lasix on hold until further Cardiology eval
Community Acquired pneumonia
-patient with cough and fatigue, Cef/Azithro started on 07/05/24
-continue antibiotics
-recheck flu/covid as cough and fatigue now more pronounced
-follow up response to duonebs ordered now
-continue Mucinex
CKD - Patient at baseline creatinine compared to prior
- avoid nephrotoxins
- hold further Lasix as above
- renal dose medications
- continue tamsulosin for reflux uropathy
DM II
- continue insulin regimen, 14 lantus hs, 3 aspart ac
- low dose sliding scale insulin achs
patient reports hx DVT - continue [employer] Eliquis
Ambulatory Dysfunction
-patient is wheelchair and manjula lift dependent; PT signed off
DVT PPX - apixaban 2.5 bid
Code status - Full Code
Total time spent on today's encounter was 52 minutes which included time spent in counseling the patient/family regarding diagnosis and treatment plan as listed above, goals of care, and symptom management. Case was discussed with nursing staff,
specialists, and care coordinators/case management. All labs and imaging personally reviewed by me. Remainder the time spent in detailed review of previous records, lab data, imaging, and other medical provider documentation.
Anticipated Discharge: > 48 hours
Subjective/Interval History
-
Date of Service: July 07, 2024
Patient does have appearance of wet cough. No chest pain. Afebrile
Objective Data
-
Labs:
Laboratory Results
07/07/24
07:19
WBC 6.8
Hgb 11.0 L
Hct 35.7 L
Plt Count 191
Sodium Pending
Potassium Pending
Chloride Pending
Carbon Dioxide Pending
BUN Pending
Creatinine Pending
Glucose Pending
Calcium Pending
Vital Signs:
Vital Signs
Temp Pulse Resp BP Pulse Ox
97.9 F 75 17 141/69 98
07/07/24 07:05 07/07/24 07:05 07/07/24 07:05 07/07/24 07:05 07/07/24 07:05
I&O
07/06/24 07/07/24 07/08/24
06:59 06:59 06:59
Intake Total 480 / 480 540 / 540
Output Total 250 / 250
Balance 230 / 230 540 / 540
[2024-07-07] MEDS: NOVOLOG FLEXPEN-LOW RESISTANCE SC ×3 (08:37→17:12)
[2024-07-07] MEDS: ESTRACE 1 MG PO (08:39)
[2024-07-07] MEDS: FLOMAX 0.4 MG PO (08:39)
[2024-07-07] MEDS: FEOSOL 325 MG PO ×2 (08:39→19:37)
[2024-07-07] MEDS: ELIQUIS 2.5 MG PO ×2 (08:39→19:37)
[2024-07-07] MEDS: CYMBALTA DELAYED RELEASE 60 MG PO (08:39)
[2024-07-07] MEDS: MIRALAX PO ×2 (08:40→09:19)
[2024-07-07] MEDS: LAC HYDRIN, AM LACTIN LOTION 1 APPLIC TOPICAL (08:40)
[2024-07-07] MEDS: SODIUM BICARBONATE 650 MG PO ×2 (08:40→19:37)
[2024-07-07] MEDS: MUCINEX 600 MG PO ×2 (08:40→19:37)
[2024-07-07] MEDS: PROTONIX 40 MG PO (08:40)
[2024-07-07] MEDS: COREG 12.5 MG PO ×2 (08:43→19:37)
[2024-07-07 09:04] LABS: Blood Urea Nitrogen 44 mg/dl (7-17); Calcium 8.5 mg/dl (8.4-10.2); Carbon Dioxide 32 mmol/L (22-30); Chloride 100 mmol/L (98-107); Estimated Creatinine Clearance 18 ml/min; Glucose 73 mg/dl (70-99); Potassium 3.5 mmol/L (3.5-5.1); Sodium 143 mmol/L (135-145); eGFR 20.96
[2024-07-07 09:37] LABS: Glycohemoglobin (HgbA1c) 6.6 % (4.0-5.6)
--- NOTE | 2024-07-07 11:33 | W.PN.CD ---
Addendum entered and electronically signed by Jose Antonio Catalan MD 07/07/24 12:33:
I saw and examined the patient.
The SNOWMAKER's note was reviewed and I agree with the note.
Comment:
Still no improvement. Continued cough and sore throat. Repeat flu negative.
Physical exam with regular rate and rhythm, no murmurs, rhonchorous lung sounds bilaterally, no lower extremity edema
Continue to hold Lasix for XANDER
Continue antibiotics for pneumonia per primary team
Original Note:
Today's Communication / Plan
-
-continue treatment of suspected PNA with ABX per primary
-follow creatinine and remain off Lasix for now
Impression / Plan
-
Jocelyn Huitron is an 79-year-old female (previously known to Dr. León, last seen in our office 2020) with HFpEF, hypertension, insulin-dependent diabetes, pulmonary hypertension, CKD, and dementia. Cardiology is consulted due to concern for
HFpEF exacerbation.
Acute on chronic HFpEF
-TTE 07/04/2024: LVEF 55-60%, mild LVH, probable elevated left atrial pressure, no significant valvular disease
-Presented with cough and shortness of breath. BNP 8670 though has been higher in the past. CXR with interstitial edema. Weight fairly stable from prior admissions.
-She did not improve with Lasix and developed XANDER.
-We are not sure that her complaints are related to heart failure. Flu and covid negative. She is being treated for PNA with abx by primary team. Wheezing/rhonchi to auscultation.
Paroxysmal atrial fibrillation?
-She is on beta-giselle and Eliquis. No documented atrial fibrillation that I can see from outpatient notes or inpatient records
-I spoke with her daughter who did not know and recommended I reach out to Dr. Hale, but unfortunately she has not seen him since 2022 and was not on AC at that time
-patient thinks she is on AC for hx DVT, but details/timing unclear
Pulmonary hypertension, likely group 2
-Unable to estimate PASP on echo from 07/04/2024
-May be contributing to SOB
CKD: XANDER as above, monitor
Diabetes: Per primary
Hyperlipidemia: Continue statin
Subjective:
Feels breathing is a little better, but overall does not feel much different otherwise
Physical Exam
Vital Signs/Labs
Vital Signs
Temp Pulse Resp BP Pulse Ox
97.9 F 75 17 141/69 98
07/07/24 07:05 07/07/24 08:43 07/07/24 07:05 07/07/24 08:43 07/07/24 07:05
07/06/24 07/07/24 07/08/24
06:59 06:59 06:59
Actual Weight 77.746 kg 77.474 kg
07/07/24 07:19
07/07/24 07:19
Magnesium 1.9 mg/dl (1.6-2.3) 07/06/24 06:34
07/04/24
00:04
Wur-F-Jpkgkkwqnap Pept 8670
Physical Exam
Constitutional: No acute distress
EENT: Anicteric
Cardiovascular: Rhythm & rate is regular and Pedal edema present (mild BLE edema, chronic per patient)
Respiratory: Wheeze Present, Rhonchi Present and Other (on O2 by NC)
Neuro/Psych: Alert, Oriented and Other (tired)
Data Reviewed
-
Date of Service: July 07, 2024
EKG: Other (no longer on tele, but was in SR on strips in chart. Sounds regular to auscultation.)
Labs: Labs Reviewed by me
[2024-07-07 12:00] LABS: Glucose - Point of Care 75 mg/dl (70-99)
[2024-07-07 12:22] LABS: Procalcitonin 0.08 ng/ml (0.0-0.25)
--- NOTE | 2024-07-07 13:59 | RESPNOTE ---
poor effort with acapella. continuous coughing post.
--- NOTE | 2024-07-07 14:34 | CM ---
Addendum entered by Tiny Clark 07/07/24 15:07:
Per [facility] max assist for bed mobility, dependent for transfers, mod assist for upper body tasks, dependent for lower body.
PCP: Rakan
[facility]
report# [phone]
fax# [phone]
Original Note:
Patient seen bedside.
IA completed.
Patient LTC at [facility].
Patient TED Ness, patient states she can ambulate with a RW.
Patient not on home oxygen.
Left message with [facility] re PLOF and PCP. await call back.
Pharmacy: [facility].
Plan: back to [facility] once stable, ambulance transport.
[2024-07-07 15:05] VITALS: BP 131/63
--- NOTE | 2024-07-07 15:51 | PTCARENOTE ---
Pt with wet cough. Unable to bring anything up. Lungs sounds - crackles and rhonchi. 99% 2L Dr Chan aware.
[2024-07-07 17:01] LABS: Glucose - Point of Care 93 mg/dl (70-99)
[2024-07-07] MEDS: LIPITOR 10 MG PO (17:12)
[2024-07-07] MEDS: ZITHROMAX 500 MG PO (17:12)
[2024-07-07] MEDS: ROCEPHIN 1000 MG IV (19:36)
[2024-07-07] MEDS: STERILE WATER FOR INJECTION 10 ML IV (19:36)
[2024-07-07] MEDS: MELATONIN 6 MG PO (21:53)
[2024-07-07] MEDS: SENOKOT 17.2 MG PO (21:53)
[2024-07-07 22:09] LABS: Glucose - Point of Care 124 mg/dl (70-99)
[2024-07-07] MEDS: LANTUS 0.14 UNITS SC (22:09)
[2024-07-07 23:15] VITALS: BP 113/48
[2024-07-08 04:52] VITALS: BMI 34.0
[2024-07-08] MEDS: SYNTHROID 25 MCG PO (05:00)
[2024-07-08 07:18] LABS: % Basophils 0.7 % (0-2); % Eosinophils 2.3 % (0-6); % Immature Granulocytes 0.2 % (0-0.5); % Lymphocytes 17.8 % (20.5-51.1); Absolute Eosinophils 0.1 10^3/uL (0-0.7); Absolute Lymphocytes 1.1 10^3/uL (1.2-3.4); Absolute Monocytes 0.4 10^3/uL (0.1-0.6); Absolute Neutrophils 4.4 10^3/uL (1.4-6.5); Hematocrit 35.6 % (37.0-47.0); Hemoglobin 11.2 g/dL (12.0-16.0); Mean Corp Hgb Conc. 31.5 g/dL (33.0-37.0); Mean Corpuscular Hgb 32.3 pg (27.0-31.0); Mean Corpuscular Volume 102.6 fL (81.0-99.0); Mean Platelet Volume 10.7 fL (7.4-10.4); Nucleated Red Blood Cells % 0 %; Platelet Count 198 10^3/uL (130-400); Red Blood Cell Count 3.47 10^6/uL (4.20-5.40); Red Cell Dist. Width 13.2 % (11.5-14.5)
[2024-07-08 07:34] LABS: Blood Urea Nitrogen 42 mg/dl (7-17); Calcium 8.6 mg/dl (8.4-10.2); Carbon Dioxide 32 mmol/L (22-30); Chloride 101 mmol/L (98-107); Estimated Creatinine Clearance 22 ml/min; Glucose 35 mg/dl (70-99); Potassium 3.9 mmol/L (3.5-5.1); Sodium 141 mmol/L (135-145); eGFR 26.36
[2024-07-08 07:38] LABS: Glucose - Point of Care 44 mg/dl (70-99)
[2024-07-08 07:41] VITALS: BP 134/78
[2024-07-08 07:59] LABS: Glucose - Point of Care 44 mg/dl (70-99)
--- NOTE | 2024-07-08 07:59 | W.PN.CD ---
Today's Communication / Plan
-
- Continue to hold Lasix for now; BUN/creatinine slowly improving.
- Continue antibiotics.
- Continue carvedilol and apixaban.
Impression / Plan
-
Jocelyn Huitron is an 79-year-old female (previously known to Dr. León, last seen in our office 2020) with HFpEF, hypertension, insulin-dependent diabetes, pulmonary hypertension, CKD, and dementia. Cardiology is consulted due to concern for
HFpEF exacerbation.
Acute on chronic HFpEF
-TTE 07/04/2024: LVEF 55-60%, mild LVH, probable elevated left atrial pressure, no significant valvular disease
-Presented with cough and shortness of breath. BNP 8670 though has been higher in the past. CXR with interstitial edema. Weight fairly stable from prior admissions.
-She did not improve with Lasix and developed XANDER.
-Flu and covid negative. She is being treated for PNA with abx by primary team. Wheezing/rhonchi to auscultation.
-Continue to hold Lasix for now; BUN/creatinine slowly improving.
Pneumonia:
- Management as per primary team
- Continue antibiotics.
Paroxysmal atrial fibrillation?
-She is on beta-giselle and Eliquis. No documented atrial fibrillation that I can see from outpatient notes or inpatient records
-patient thinks she is on AC for hx DVT, but details/timing unclear
-Continue carvedilol and apixaban.
Pulmonary hypertension, likely group 2
-Unable to estimate PASP on echo from 07/04/2024
CKD: XANDER as above, monitor
Diabetes: Per primary; currently hypoglycemic
Hyperlipidemia: Continue statin
Subjective:
No major events overnight. Still with shortness of breath and significant cough.
Physical Exam
Vital Signs/Labs
Vital Signs
Temp Pulse Resp BP Pulse Ox
98.4 F 77 16 134/78 96
07/08/24 07:41 07/08/24 07:41 07/08/24 07:41 07/08/24 07:41 07/08/24 07:41
07/07/24 07/08/24 07/09/24
06:59 06:59 06:59
Actual Weight 77.474 kg 78.925 kg
07/08/24 06:39
07/08/24 06:39
Magnesium 1.9 mg/dl (1.6-2.3) 07/06/24 06:34
07/04/24
00:04
Ubr-X-Cwfijlxdeep Pept 8670
Physical Exam
Constitutional: No acute distress and Comfortable
EENT: Anicteric
Cardiovascular: Rhythm & rate is regular, Pedal edema is absent, Systolic murmur absent and S1S2 is normal
Respiratory: Respiratory effort normal, Crackles Present and Other (Decreased bibasilar breath sounds)
GI: Soft
Neuro/Psych: Alert and Oriented
Other: Skin (Warm, dry, intact)
Data Reviewed
-
Date of Service: July 08, 2024
Echo: Report Reviewed by me (EF 55-60%, no significant valvular disease)
Labs: Labs Reviewed by me
[2024-07-08] MEDS: DEXTROSE 50% SYRINGE 12.5 GRAMS IV (08:03)
[2024-07-08 08:33] LABS: Glucose - Point of Care 120 mg/dl (70-99)
--- NOTE | 2024-07-08 08:37 | W.PN.HOSP.TC ---
Addendum entered and electronically signed by Ron Chan MD 07/08/24 14:02:
Heels with stage 1 PI, POA
Original Note:
Today's Communication/Plan
-
Steroids. Incentive spirometry and Acapella.
Assessment / Plan
Assessment / Plan
Physical exam:
General: Acute on chronically ill
HEENT: Normocephalic, Atraumatic and Moist Mucous Membranes
Respiratory: Bilateral rhonchi and scattered wheezes; Negative Rales
Cardiac: Regular Rhythm and S1/S2
GI: Soft, Nontender and Nondistended
Musculoskeletal: No Clubbing, No Cyanosis and No Edema
Neuro: Awake, Alert and Oriented, generalized weakness present
Psych: Calm
A/P:
Post bronchitis cough and atelectasis:
Start oral prednisone
Continue Acapella and DuoNeb as needed and cough medications
Start Incentive spirometry
Updated daughter over the phone today
Ruled out pneumonia:
Stop antibiotics today
Seen CT scan of the chest and no evidence of consolidation rather atelectasis
Procalcitonin normal
Acute on chronic diastolic CHF:
Received IV Lasix but currently on hold
Cardiology following
Reviewed echocardiogram
Paroxysmal atrial fibrillation, unknown duration:
Continue rate control, carvedilol
Continue anticoagulation, Eliquis
Pulmonary hypertension:
Probably group 2 WHO
Follow-up outpatient
XANDER on CKD:
Avoid nephrotoxic
Monitor renal function
Diabetes mellitus type 2:
Episodes of hypoglycemia but now starting steroid keep insulin the same doses and will adjust if further episodes occur
Insulin sliding scale
Continue Lantus
Hyperlipidemia:
Continue statin
Ambulatory dysfunction:
Wheelchair and Thi lift dependent
PT signed off
DVT prophylaxis:
Eliquis
CODE STATUS:
Full code
Total time spent on today's encounter was 52 minutes which included time spent in counseling the patient/family regarding diagnosis and treatment plan as listed above, goals of care, and symptom management. Case was discussed with nursing staff,
specialists, and care coordinators/case management. All labs and imaging personally reviewed by me. Remainder the time spent in detailed review of previous records, lab data, imaging, and other medical provider documentation.
Anticipated Discharge: 24 - 48 hours
Subjective/Interval History
-
Date of Service: July 08, 2024
Patient still has some cough. No shortness of breath. No chest pain. Afebrile
Objective Data
-
Labs:
Laboratory Results
07/08/24
06:39
WBC 6.0
Hgb 11.2 L
Hct 35.6 L
Plt Count 198
Sodium 141
Potassium 3.9
Chloride 101
Carbon Dioxide 32 H
BUN 42 H
Creatinine 1.9 H
Glucose 35 L*
Calcium 8.6
Vital Signs:
Vital Signs
Temp Pulse Resp BP Pulse Ox
98.4 F 77 16 134/78 96
07/08/24 07:41 07/08/24 07:41 07/08/24 07:41 07/08/24 07:41 07/08/24 07:41
I&O
07/07/24 07/08/24 07/09/24
06:59 06:59 06:59
Intake Total 540 / 540 850 / 850
Balance 540 / 540 850 / 850
[2024-07-08] MEDS: NOVOLOG FLEXPEN-LOW RESISTANCE SC ×2 (08:44→11:48)
[2024-07-08 09:30] VITALS: BMI 34.0
[2024-07-08] MEDS: MIRALAX PO (09:55)
[2024-07-08] MEDS: ESTRACE 1 MG PO (09:56)
[2024-07-08] MEDS: SODIUM BICARBONATE 650 MG PO ×2 (09:56→20:18)
[2024-07-08] MEDS: FEOSOL 325 MG PO ×2 (09:56→20:18)
[2024-07-08] MEDS: ELIQUIS 2.5 MG PO ×2 (09:56→20:19)
[2024-07-08] MEDS: PROTONIX 40 MG PO (09:56)
[2024-07-08] MEDS: CYMBALTA DELAYED RELEASE 60 MG PO (09:56)
[2024-07-08] MEDS: FLOMAX 0.4 MG PO (09:56)
[2024-07-08] MEDS: COREG 12.5 MG PO ×2 (09:56→20:16)
[2024-07-08] MEDS: LAC HYDRIN, AM LACTIN LOTION 1 APPLIC TOPICAL (09:57)
[2024-07-08] MEDS: MUCINEX PO (09:57)
[2024-07-08] MEDS: DELTASONE 40 MG PO (09:57)
[2024-07-08] MEDS: DESENEX/MITRAZOL/ZEASORB 1 APPLIC TOPICAL ×2 (11:44→22:19)
[2024-07-08] MEDS: MUCINEX 600 MG PO ×2 (11:44→20:17)
[2024-07-08 11:48] LABS: Glucose - Point of Care 97 mg/dl (70-99)
--- NOTE | 2024-07-08 12:03 | PN.CDI ---
CDI
- -
CDI:
Physician Documentation Request
Admit Date: 07/04/24 05:21
Dear Doctor Rocio,
07/04 Wound Care Note: 'Heels with stage 1 PI, no-sting barrier applied and heels off-loaded with pillows under calves.'
Physician documentation of the type and location of wounds is required for compliant documentation. Based on the above clinical findings and your assessment, please provide the following in your progress note:
1. Location of the ulcer/wound, including laterality.
2. Type (etiology) of ulcer/wound:
- Diabetic ulcer
- Arterial (ischemic) ulcer
- Traumatic wound
- Venous stasis ulcer
- Pressure (decubitus) ulcer
- Non-healing surgical wound
- Other
- Unable to determine
3. For a non-pressure ulcer, please indicate the depth/severity:
- Limited to the breakdown of skin
- With fat layer exposed
- With necrosis of muscle
- With necrosis of bone
- Other
- Unable to determine
4. If a pressure ulcer, please also include the stage* of the ulcer:
- Stage 1 - Skin intact, non-blanchable redness
- Stage 2 - Partial thickness loss of dermis, includes intact or open blister
- Stage 3 - Full thickness tissue not including bone, tendon or muscle
- Stage 4 - Full thickness tissue loss, including exposed bone, tendon or muscle
- Unstageable - Full thickness loss in which the base of the ulcer is covered by slough (yellow, brunson, diez, green or brown) and/or eschar (brunson, brown or black) in the wound bed.
- Unable to determine
Use of terms such as suspected, likely, concern for, or probable (associated with a specific diagnosis that is being evaluated, monitored, or treated as if it exists) are acceptable and can be coded in the inpatient setting, when documented at the
time of discharge.
Thank you,
Karen Rodriguez RN, BSN
CDI Specialist
Available via [place] text
Please use your independent medical judgment in providing your response.
*Source: National Pressure Ulcer Advisory Panel (NPUAP)
[2024-07-08 15:04] VITALS: BP 139/63
[2024-07-08 16:32] LABS: Glucose - Point of Care 301 mg/dl (70-99)
[2024-07-08] MEDS: NOVOLOG FLEXPEN-LOW RESISTANCE 4 UNITS SC (17:32)
[2024-07-08] MEDS: LIPITOR 10 MG PO (17:33)
[2024-07-08] MEDS: SENOKOT PO (20:18)
[2024-07-08 21:54] LABS: Glucose - Point of Care 373 mg/dl (70-99)
[2024-07-08] MEDS: LANTUS 0.14 UNITS SC (22:24)
[2024-07-08] MEDS: MELATONIN PO (22:24)
[2024-07-08 23:23] VITALS: BP 136/62
[2024-07-09] MEDS: SYNTHROID 25 MCG PO (05:06)
[2024-07-09 06:27] LABS: % Immature Granulocytes 0.8 % (0-0.5); % Lymphocytes 12.3 % (20.5-51.1); % Monocytes 3.6 % (1.7-9.3); % Neutrophils 83.3 % (42.2-75.2); Absolute Lymphocytes 0.6 10^3/uL (1.2-3.4); Absolute Monocytes 0.2 10^3/uL (0.1-0.6); Absolute Neutrophils 4.1 10^3/uL (1.4-6.5); Hematocrit 34.6 % (37.0-47.0); Mean Corp Hgb Conc. 31.8 g/dL (33.0-37.0); Mean Corpuscular Hgb 32.6 pg (27.0-31.0); Mean Corpuscular Volume 102.7 fL (81.0-99.0); Mean Platelet Volume 11.2 fL (7.4-10.4); Nucleated Red Blood Cells % 0 %; Platelet Count 215 10^3/uL (130-400); Red Blood Cell Count 3.37 10^6/uL (4.20-5.40); Red Cell Dist. Width 12.6 % (11.5-14.5)
[2024-07-09 06:49] LABS: Blood Urea Nitrogen 35 mg/dl (7-17); Calcium 8.9 mg/dl (8.4-10.2); Carbon Dioxide 28 mmol/L (22-30); Chloride 99 mmol/L (98-107); Estimated Creatinine Clearance 21 ml/min; Glucose 268 mg/dl (70-99); Potassium 3.6 mmol/L (3.5-5.1); Sodium 139 mmol/L (135-145); eGFR 24.79
[2024-07-09 07:15] VITALS: BP 136/79
[2024-07-09 07:27] LABS: Glucose - Point of Care 273 mg/dl (70-99)
[2024-07-09] MEDS: ESTRACE 1 MG PO (07:39)
[2024-07-09] MEDS: NOVOLOG FLEXPEN-LOW RESISTANCE 3 UNITS SC ×2 (07:39→17:08)
[2024-07-09] MEDS: FLOMAX 0.4 MG PO (07:39)
[2024-07-09] MEDS: ELIQUIS 2.5 MG PO (07:40)
[2024-07-09] MEDS: CYMBALTA DELAYED RELEASE 60 MG PO (07:40)
[2024-07-09] MEDS: DELTASONE 40 MG PO (07:40)
[2024-07-09] MEDS: PROTONIX 40 MG PO (07:40)
[2024-07-09] MEDS: MUCINEX 600 MG PO (07:40)
[2024-07-09] MEDS: FEOSOL 325 MG PO (07:41)
[2024-07-09] MEDS: COREG 12.5 MG PO (07:41)
[2024-07-09] MEDS: DESENEX/MITRAZOL/ZEASORB 1 APPLIC TOPICAL (07:41)
[2024-07-09] MEDS: LAC HYDRIN, AM LACTIN LOTION 1 APPLIC TOPICAL (07:41)
[2024-07-09] MEDS: SODIUM BICARBONATE 650 MG PO (07:44)
[2024-07-09] MEDS: MIRALAX PO (07:44)
[2024-07-09 09:00] VITALS: BMI 34.0
--- NOTE | 2024-07-09 09:06 | W.PN.HOSP.TC ---
Today's Communication/Plan
-
Discharge planning
Assessment / Plan
Assessment / Plan
Physical exam:
General: Acute on chronically ill
HEENT: Normocephalic, Atraumatic and Moist Mucous Membranes
Respiratory: Bilateral rhonchi; Negative wheezes; Negative Rales
Cardiac: Regular Rhythm and S1/S2
GI: Soft, Nontender and Nondistended
Musculoskeletal: No Clubbing, No Cyanosis and No Edema
Neuro: Awake, Alert and Oriented, generalized weakness present
Psych: Calm
A/P:
Post bronchitis cough and atelectasis:
Start oral prednisone
Continue Acapella and DuoNeb as needed and cough medications
Start Incentive spirometry
Updated daughter over the phone yesterday
Medically stable for discharge--> case management for discharge disposition
Ruled out pneumonia:
Stopped antibiotics yesterday. Remains afebrile
Seen CT scan of the chest and no evidence of consolidation rather atelectasis
Procalcitonin normal
Acute on chronic diastolic CHF:
Received IV Lasix but currently on hold--> will keep on hold for 1 more week and restart as outpatient after follow-up renal function test.
Cardiology following
Reviewed echocardiogram
Paroxysmal atrial fibrillation, unknown duration:
Continue rate control, carvedilol
Continue anticoagulation, Eliquis
Pulmonary hypertension:
Probably group 2 WHO
Follow-up outpatient
XANDER on CKD:
Avoid nephrotoxic
Monitor renal function
Diabetes mellitus type 2:
Episodes of hypoglycemia but now starting steroid keep insulin the same doses and will adjust if further episodes occur
Insulin sliding scale
Continue Lantus
Hyperlipidemia:
Continue statin
Ambulatory dysfunction:
Wheelchair and Thi lift dependent
PT signed off
DVT prophylaxis:
Eliquis
CODE STATUS:
Full code
Anticipated Discharge: Today
Subjective/Interval History
-
Date of Service: July 09, 2024
Her cough is improving. No shortness of breath or chest pain. Afebrile
Objective Data
-
Labs:
Laboratory Results
07/09/24
05:39
WBC 5.0
Hgb 11.0 L
Hct 34.6 L
Plt Count 215
Sodium 139
Potassium 3.6
Chloride 99
Carbon Dioxide 28
BUN 35 H
Creatinine 2.0 H
Glucose 268 H
Calcium 8.9
Vital Signs:
Vital Signs
Temp Pulse Resp BP Pulse Ox
97.7 F 73 16 136/79 97
07/09/24 07:15 07/09/24 07:41 07/09/24 07:15 07/09/24 07:41 07/09/24 07:57
I&O
07/08/24 07/09/24 07/10/24
06:59 06:59 06:59
Intake Total 850 / 850 240 / 240
Balance 850 / 850 240 / 240
--- NOTE | 2024-07-09 09:47 | W.PN.CD ---
Today's Communication / Plan
-
- Continue to hold Lasix; BUN continuing to improve, creatinine relatively stable.
- Continue antibiotics and management as per primary team.
Impression / Plan
-
Jocelyn Huitron is an 79-year-old female (previously known to Dr. León, last seen in our office 2020) with HFpEF, hypertension, insulin-dependent diabetes, pulmonary hypertension, CKD, and dementia. Cardiology is consulted due to concern for
HFpEF exacerbation.
Acute on chronic HFpEF
-TTE 07/04/2024: LVEF 55-60%, mild LVH, probable elevated left atrial pressure, no significant valvular disease
-Presented with cough and shortness of breath. BNP 8670 though has been higher in the past. CXR with interstitial edema. Weight fairly stable from prior admissions.
-She did not improve with Lasix and developed XANDER.
-Flu and covid negative. She is being treated for PNA with abx by primary team. Wheezing/rhonchi to auscultation.
-Continue to hold Lasix; BUN continuing to improve, creatinine relatively stable.
Pneumonia:
- Management as per primary team
- Continue antibiotics and management as per primary team.
Paroxysmal atrial fibrillation?
-She is on beta-giselle and Eliquis. No documented atrial fibrillation that I can see from outpatient notes or inpatient records
-patient thinks she is on AC for hx DVT, but details/timing unclear
-Continue carvedilol and apixaban.
Pulmonary hypertension, likely group 2
-Unable to estimate PASP on echo from 07/04/2024
CKD: XANDER as above, monitor
Diabetes: Per primary; currently hypoglycemic
Hyperlipidemia: Continue statin
Physical Exam
Vital Signs/Labs
Vital Signs
Temp Pulse Resp BP Pulse Ox
97.7 F 73 16 136/79 97
07/09/24 07:15 07/09/24 07:41 07/09/24 07:15 07/09/24 07:41 07/09/24 07:57
07/08/24 07/09/24 07/10/24
06:59 06:59 06:59
Actual Weight 78.925 kg
07/09/24 05:39
07/09/24 05:39
Magnesium 1.9 mg/dl (1.6-2.3) 07/06/24 06:34
07/04/24
00:04
Obo-C-Kwwoggezanw Pept 8670
Physical Exam
Constitutional: No acute distress and Comfortable
EENT: Anicteric
Cardiovascular: Rhythm & rate is regular, Pedal edema is absent, Systolic murmur absent and S1S2 is normal
Respiratory: Respiratory effort normal and Rhonchi Present (Scant bibasilar rhonchi)
GI: Soft
Neuro/Psych: Alert
Other: Skin (warm, dry)
Data Reviewed
-
Date of Service: July 09, 2024
Echo: Report Reviewed by me (EF 55-60%; no significant valvular disease.)
Labs: Labs Reviewed by me
[2024-07-09 11:20] LABS: Glucose - Point of Care 173 mg/dl (70-99)
[2024-07-09] MEDS: NOVOLOG FLEXPEN-LOW RESISTANCE 1 UNITS SC (11:25)
--- NOTE | 2024-07-09 12:42 | W.DCSUMMARY ---
Discharge Summary
Discharge Data
Date of Admission: 07/04/24
Date of Discharge: 07/09/24
-
Pending Results: No
Hospital Course
Patient 79 years old female history of CHF, hypertension, hyperlipidemia, pulmonary hypertension, rheumatoid arthritis, fibromyalgia, CKD, obesity, dementia, presented to the hospital cough and shortness of breath and hypoxia. Patient was felt to
be in heart failure and she was initiated on IV Lasix. Cardiology consulted. A couple of days after admission since patient had persistent cough and chest x-ray was somewhat suggestive of pneumonia versus atelectasis then she was started on
antibiotics. Subsequently we had a CT scan of the chest that shows no evidence of pneumonia (confirmed atelectasis) and normal procalcitonin and no leukocytosis and afebrile so antibiotics were discontinued. Pneumonia was ruled out. She did have
elevated creatinine and her diuretics were on hold. We started her on several medications for cough and she started to improve. She remained on room air. She remained afebrile. She did well rest of the hospital stay. We recommended to continue
hold diuretics, repeat a renal function test within 1 week, and restart oral diuretics at her home doses in a week. Otherwise, patient is hemodynamically stable and she is going to be discharged in stable condition to her skilled facility today.
Discharge duration: 35 minutes
Discharge Plan
-
Patient Disposition: Assisted/SNF
Discharge Diagnosis/Procedures: Post bronchitis cough and atelectasis. Acute on chronic diastolic congestive heart failure. Paroxysmal atrial fibrillation. Acute kidney injury.
Diet: Low Cholesterol
Activity: As tolerated
Blood Work: Please PCP to order CBC, BMP within 1 week
Specialty Instructions: Weigh Daily- Call MD for wt gain/loss 3 lbs overnight/5 lbs in 1 week
Instructions: *CBC Heart Failure Instructions
Referrals:
Primary care, provider [Other] - in less than 1 week
Jose Antonio Catalan MD [Active] - in one to two weeks
Prescriptions:
New
carvedilol 12.5 mg Tablet
12.5 mg PO BID 30 Days Qty: 60 0RF
guaifenesin 600 mg Tablet Extended Release 12hr
600 mg PO Q12 10 Days Qty: 20 0RF
Continued
Eliquis 2.5 MG tablet
2.5 mg PO BID
cyanocobalamin (vitamin B-12) 1,000 MCG tablet
1,000 mcg PO DAILY
magnesium 250 MG tablet
500 mg PO FR@0800
atorvastatin 10 MG tablet
10 mg PO HS
estradiol 1 MG tablet
1 mg PO DAILY
fluticasone propionate 1 SPRAY spray,suspension
1 spray intranasal BID
acetaminophen 325 MG tablet
650 mg PO Q4HPRN PRN (Reason: mild pain/ fever>100.5F) 0RF
bisacodyl [OneLAX Bisacodyl] 10 MG suppository
10 mg AL DAILYPRN PRN (Reason: if mom ineffective) 0RF
Fleet Enema 19-7 gram/118 mL Enema
118 ml AL DAILYPRN PRN (Reason: if no bm aftr dulcolax)
duloxetine [Cymbalta] 30 mg Capsule,Delayed Release(Dr/Ec)
60 mg PO DAILY
polyethylene glycol 3350 17 GRAMS powder in packet
17 grams PO DAILY
tamsulosin 0.4 MG capsule
0.4 mg PO DAILY
pantoprazole 40 MG tablet,delayed release (DR/EC)
40 mg PO DAILY
sodium bicarbonate 650 mg Tablet
650 mg PO BID Qty: 28 0RF
sennosides [senna] 8.6 mg Tablet
17.2 mg PO HS
doxycycline hyclate 100 mg Capsule
100 mg PO BID
Rx Instructions:
start on 06/25/24 and end on 07/05/2024
insulin glargine 100 unit/mL Solution
14 unit SC HS
ammonium lactate [AmLactin] 12 % Lotion
1 applic TOPICAL DAILY
loperamide [Imodium A-D] 2 mg Tablet
2 mg PO Q6HPRN PRN (Reason: diarrhea)
melatonin 3 mg Tablet
6 mg PO HS
levothyroxine 25 mcg Tablet
25 mcg PO DAILY
insulin aspart U-100 100 unit/mL Solution
3 unit SC AC
ferrous sulfate 325 mg (65 mg iron) Tablet
325 mg PO BID
mupirocin 2 % Ointment
1 applic TOPICAL DAILY
Rx Instructions:
for 14 days stop on date 07/10/2024
menthol-zinc oxide [Moisture Barrier Ointment] 0.44-20.6 % Ointment
1 applic TOPICAL TID
glucagon HCl [Glucagon (HCl) Emergency Kit] 1 mg Recon Soln
1 mg SC Q30M PRN (Reason: hypoglycemia)
guaifenesin [Mucinex] 600 mg Tablet Extended Release 12hr
600 mg PO BID
ipratropium-albuterol 0.5 mg-3 mg(2.5 mg base)/3 mL Solution For Nebulization
3 ml INHALATION R Q6HPRN PRN (Reason: sob)
magnesium hydroxide [Milk of Magnesia] 400 mg/5 mL Suspension
2,400 mg PO DAILYPRN PRN (Reason: if no bm by 3rd day)
Fleet Enema 19-7 gram/118 mL Enema
118 ml AL DAILYPRN PRN (Reason: if no bm aftr dulolcax)
eucalyptus-menthol Lozenge
3.1 mg MUCOUS MEMBRANE [id number] PRN (Reason: cough)
Saccharomyces boulardii [Florastor] 250 mg Capsule
250 mg PO DAILY
Held
furosemide [Lasix] 20 mg Tablet
20 mg PO DAILY
Hold Instructions: Resume on 07/16/24.
Discontinued
carvedilol 6.25 MG tablet
12.5 mg PO BID
Discharge Orders:
Discharge Patient (As Directed); Ordered 07/09/24
Ordered By: Ron Chan
Discharge Date and Time
Discharge Date/Time: 07/09/24 18:29
Print Language: [place]
[2024-07-09 16:00] VITALS: BP 125/69
[2024-07-09 16:13] VITALS: BP 125/69
[2024-07-09 16:48] LABS: Glucose - Point of Care 258 mg/dl (70-99)
[2024-07-09] MEDS: LIPITOR 10 MG PO (17:07)
--- NOTE | 2024-07-10 08:46 | CM ---
Late note from 07/09/2024 (note entered, but not saved):
Pt cleared for discharge, returning to [facility]. CM attempted to notify pt's via telephone, but no answer; called pt's son who was agreeable to and gave verbal consent for IMM and transfer back to [facility]. Son advised that
his father is ; CM apologized and asked [place] to remove from the demographics.
Pt was discharged to [facility] last evening via ambulance. Report and fax information was shared with unit staff previously.
== END 2024-07-09 18:29 | DRG 291 ==
LOC: 3 WEST ACU 05:21
PROVIDERS: Hospitalist; Student in an Organized Health Care Education/Training Program; ADMITTING PHYSICIAN Internal Medicine; ATTENDING PHYSICIAN Hospitalist; EMERGENCY PHYSICIAN Student in an Organized Health Care Education/Training Program; OTHER PHYSICIAN Student in an Organized Health Care Education/Training Program
DX: I13.0 Hypertensive heart and chronic kidney disease with heart failure and stage 1 through stage 4 chronic kidney disease, or unspecified chronic kidney disease (principal); I50.33 Acute on chronic diastolic (congestive) heart failure; N17.9 Acute kidney failure, unspecified; J98.11 Atelectasis; N18.4 Chronic kidney disease, stage 4 (severe); Z11.52 Encounter for screening for COVID-19; N13.9 Obstructive and reflux uropathy, unspecified; E11.22 Type 2 diabetes mellitus with diabetic chronic kidney disease; Z79.4 Long term (current) use of insulin; Z79.01 Long term (current) use of anticoagulants; I48.0 Paroxysmal atrial fibrillation; E78.00 Pure hypercholesterolemia, unspecified; L89.621 Pressure ulcer of left heel, stage 1; L89.611 Pressure ulcer of right heel, stage 1
CPT/HCPCS: 71046; 71250; 80048; 80053; 82962; 83036; 83735; 83880; 84145; 84443; 85025; 85027; 86140; 87070; 87502; 87811; 93005; 93306; 94640; 96374; 99285

== ENCOUNTER 2024-08-27 05:45 | Inpatient (IN) | payer MEDICARE, OTHER, SELFPAY ==
[2024-08-27] VITALS (10 sets, daily range): BP systolic 124–175; BP diastolic 62–83; BMI 35.0
[2024-08-27 03:20] LABS: COVID-19 Antigen Negative (Negative)
--- NOTE | 2024-08-27 03:38 | ED.GENMED ---
History of Present Illness
General
Chief Complaint: Breathing Problem
Source: patient
Exam Limitations: none
Time Seen by Provider: 08/27/24 03:37
Nursing documentation reviewed up to this point in time: agreed with
History of Present Illness
History of Present Illness:
Note:
CHIEF COMPLAINT(S)
Shortness of breath and chest discomfort.
HISTORY OF PRESENT ILLNESS
The patient is an 79-year-old female with a pmh of chf, htn, hlp, GERD, anxiety, depression who presented to the emergency department with symptoms of shortness of breath and chest discomfort. These symptoms began today while sitting at her nursing
home. The patient also reported swelling in her feet that has worsened and noted that her breathing worsens when lying flat. There is no significant recent weight gain or abdominal pain. The patient reported feeling feverish yesterday but denied any
current cough productive of blood. She mentioned being diagnosed with pneumonia last week, for which she was treated with albuterol and oxygen, although she is uncertain if she was prescribed an antibiotic. Previously, the patient has not required
supplemental oxygen at home. EMS was called and she was found to be hypoxic to 80% on room air. She was placed on 2 L via nasal cannula.
ADDITIONAL HISTORY OBTAINED FROM SOURCES OTHER THAN THE PATIENT
According to the assisted and emergency medical services, there was limited information provided about the patients recent healthcare interventions.
ALLERGIES
The patient reports an allergy to penicillin, which causes her to break out in a rash.
PHYSICAL EXAM
Nursing notes reviewed and vital signs reviewed.
General: Patient is well appearing and in no acute distress; non-toxic
Skin: Warm and dry, no rashes or lesions
Head: Normocephalic, atraumatic
Eyes: Sclera non-icteric. EOMs intact.
Cardiac: Tachycardia noted otherwise regular rhythm, no murmurs
Peripheral Vascular: Bilateral lower extremity edema
Pulm: Increased respiratory rate, satting 85% on room air, coarse Rales heard bilaterally
Abdomen: No abdominal tenderness to palpation
Neuro: CN II-XII intact, no focal neurologic deficits.
Psychiatric: Appropriate mood and affect.
PROBLEM LIST
Acute:
- Shortness of breath
- Chest discomfort
- Recent pneumonia diagnosis
PLAN
- Obtain a chest X-ray to evaluate for fluid around the lungs.
- Conduct blood work and an electrocardiogram (EKG) to further assess cardiac function
DIFFERENTIAL DIAGNOSIS
The Differential Diagnosis includes, in no particular order and is not limited to:
- Congestive heart failure
- Pneumonia
- Pulmonary edema
- Chronic obstructive pulmonary disease (though no previous history)
- Pulmonary embolism
- Cardiac ischemia
- Pleural effusion
- Atypical chest pain
- Respiratory infection
- Medication-related side effects
RECORD REVIEW
Reviewed discharge summary from 07/09/2024 patient seen for acute CHF exacerbation she was initiated on IV Lasix and x-ray was reviewed which was electricians of pneumonia and she was started on antibiotics however got a CAT scan with no evidence of
pneumonia. Her symptoms improved and she remained on room air and was discharged
MDM/DISPOSITION
79-year-old female with a past medical history of CHF, hypertension, hyperlipidemia presents emergency department with concerns of shortness of breath and chest discomfort. This has been going on for the past few days. She also notes that symptoms
are worse with lying down she does increase her lower extremity edema. On physical exam she is well-appearing no acute distress she does have increased respiratory rate and coarse breath sounds heard bilaterally. Her chest x-ray shows no evidence
of pleural or pleural effusion does show some evidence of atelectasis. I do not appreciate a clear infiltrate representing pneumonia. Did review her blood work, she does have chronic renal insufficiency. [place] [address]. History and
physical and workup consistent with acute heart failure exacerbation. Did consider pulmonary embolism however less likely considering patient is on Eliquis and does have a filter in place. Patient referred for admission
Past History
Past History
ED Past Medical History: CAD, CHF, GERD, HTN, Hypercholesterolemia, NIDDM, Psychiatric, Other (Anemia) and Other
ED Past Surgical History: Gynecological (Hysterectomy) and Orthopedic (Bilateral hip replacements, bilateral knee replacements, rotator cuff repair)
Social History
Tobacco: Non-smoker
Alcohol: None
Personal:
Living: assisted ([facility])
Employment: Retired
Family History
Family History: Other (Noncontributory)
Review of Systems
Review of Systems
All Other Systems: ROS reviewed and negative except as documented in HPI and ROS
Phy Exam
Physical Exam
Physical Exam:
see hpi
Scores
Heart Failure Risk
Heart Failure Risk Score: Not Applicable
Course
Orders/Labs/Results
Orders:
Orders
08/27/24 02:37
ECG [Electrocardiogram (*1)] Urgent
Reason for Study: Chest Pain
EKG- Treatment ONCE
08/27/24 02:39
Chest [CR Chest - 2 Views ] Urgent
Comment:
Reason For Exam: sob
08/27/24 02:51
COVID-19 Antigen Urgent
Source: Nasal Swab
Influenza A+B Rapid Molecular Urgent
YESSENIA Source: Nasal Swab
Specimen Description:
08/27/24 03:49
Complete Blood Count/With Diff Urgent
Comprehensive Metabolic Panel Urgent
NT-proBNP Urgent
Troponin I Urgent
08/27/24 05:19
Admit/Transfer Patient As Directed
Co-Sign Provider:
Level of Care: Inpatient admission
Assign to:: Telemetry
Physician / Group: Hospitalist
Diagnosis: CHF exacerbation
Reason for Telemetry: Subacute Heart Failure
Date to Stop Telemetry: 08/29/24
Time to Stop Telemetry: 11:00
Reason for Hospitalization: hypoxia
Expected length of stay greater than two midnights?: Yes
ELOS- Estimated Length of Stay in days: 2
I certify the patient meets the requirements for IP care: Yes
08/27/24 05:20
PRN Pain Medication Management As Directed
May give lesser potent ordered pain med per pt: Yes
preference::
Protocol:: Medication orders for pain may be administered in a
manner that supports deferring to patient preference
when the pt is:
- Requesting an ordered lesser potent pain medication.
Least to most potent pain medications are defined
as: acetaminophen < NSAID < tramadol < opioids
(morphine, oxycodone, hydromorphone).
- Requesting a lesser dose of the same medication IF
ORDERED.
- Requesting a less intrusive route of administration
if both routes are prescribed by the provider (PO <
IV).
08/27/24 05:23
Code Status As Directed
Resuscitation Status: Full Code
08/27/24 05:28
Furosemide [Lasix] 60 mg IV NOW STA
Ipratropium/Albuterol Sulfate [Duoneb] 3 ml INH R NOW STA
08/27/24 05:58
Venous Blood Gas Stat
%Oxygen/Room Air: 28
08/27/24 06:00
Flush (0.9% Sodium Chloride) [Flush (Nss)] See Dose Instructions IV PER PROTOCOL
08/29/24 11:00
DC Protocol for Telemetry ONCE
Abnormal Lab Results
08/27/24
03:49
RBC 3.52 L 10^6/uL
(4.20-5.40)
Hgb 11.6 L g/dL
(12.0-16.0)
Hct 36.3 L %
(37.0-47.0)
MCV 103.1 H fL
(81.0-99.0)
MCH 33.0 H pg
(27.0-31.0)
MCHC 32.0 L g/dL
(33.0-37.0)
RDW 16.5 H %
(11.5-14.5)
MPV 10.8 H fL
(7.4-10.4)
Abs Immat Gran (auto) 0.1 H 10^3/uL
(0-0.05)
Absolute Lymphs (auto) 0.9 L 10^3/uL
(1.2-3.4)
Immature Gran % 1.9 H %
(0-0.5)
Neutrophils % 77.5 H %
(42.2-75.2)
Lymphocytes % 14.3 L %
(20.5-51.1)
Chloride 110 H mmol/L
(98-107)
Carbon Dioxide 21 L mmol/L
(22-30)
BUN 32 H mg/dl
(7-17)
Creatinine 1.8 H mg/dL
(0.6-1.0)
Glucose 213 H mg/dl
(70-99)
AST 13 L U/L
(14-36)
08/27/24 03:49
08/27/24 03:49
Vital Signs
Initial and Last Documented VS:
Initial Vital Signs
Temp Pulse Resp BP Pulse Ox
98.8 F 110 20 143/63 82
08/27/24 02:39 08/27/24 02:39 08/27/24 02:39 08/27/24 02:39 08/27/24 02:39
Last Documented Vital Signs
Temp Pulse Resp BP Pulse Ox
98.8 F 99 24 152/74 98
08/27/24 02:39 08/27/24 06:00 08/27/24 06:00 08/27/24 06:00 08/27/24 06:00
*Critical Care Note
Total Time (30-74mins, 75-104mins- exclusive of procedures): Not Applicable
ED Attending Note
-
Portions of this chart may have been created with voice recognition software.� Occasional wrong word or��sound alike� substitutions may have occurred due to the inherent limitations of voice recognition software.
Discharge Plan
Departure
Patient Disposition: Admit
Date of Disposition: 08/27/24
Time of Disposition: 04:48
Presentation/result/management discussed w/ accepting MD/DO: Hospitalist
Patient with high blood pressure during this ER visit?: Yes
Condition: Fair
Discharge Problem:
Acute CHF (congestive heart failure)
Interventions
Interventions:
*Risk Screen - Suicide Last Done: 08/27/24 02:39
*General Assessment Last Done: 08/27/24 02:39
*Neglect/Abuse Screening Last Done: 08/27/24 02:39
*ED COVID-19 Vaccine History Last Done: 08/27/24 02:39
ED- Cardiac Assessment Last Done: 08/27/24 02:49
ED- Pulmonary Assessment Last Done: 08/27/24 02:49
[2024-08-27 03:56] LABS: % Basophils 0.3 % (0-2); % Eosinophils 1.1 % (0-6); % Immature Granulocytes 1.9 % (0-0.5); % Lymphocytes 14.3 % (20.5-51.1); % Monocytes 4.9 % (1.7-9.3); % Neutrophils 77.5 % (42.2-75.2); Absolute Eosinophils 0.1 10^3/uL (0-0.7); Absolute Immature Granulocytes 0.1 10^3/uL (0-0.05); Absolute Lymphocytes 0.9 10^3/uL (1.2-3.4); Absolute Monocytes 0.3 10^3/uL (0.1-0.6); Absolute Neutrophils 4.9 10^3/uL (1.4-6.5); Hematocrit 36.3 % (37.0-47.0); Hemoglobin 11.6 g/dL (12.0-16.0); Mean Corpuscular Volume 103.1 fL (81.0-99.0); Mean Platelet Volume 10.8 fL (7.4-10.4); Nucleated Red Blood Cells % 0 %; Platelet Count 172 10^3/uL (130-400); Red Blood Cell Count 3.52 10^6/uL (4.20-5.40); Red Cell Dist. Width 16.5 % (11.5-14.5); White Blood Cell Count 6.4 10^3/uL (4.8-10.8)
[2024-08-27 04:26] LABS: ALT (SGPT) < 10 U/L (0-35); AST (SGOT) 13 U/L (14-36); Albumin 3.5 g/dl (3.5-5.0); Alkaline Phosphatase 69 U/L (38-126); Blood Urea Nitrogen 32 mg/dl (7-17); Calcium 8.4 mg/dl (8.4-10.2); Carbon Dioxide 21 mmol/L (22-30); Chloride 110 mmol/L (98-107); Estimated Creatinine Clearance 23 ml/min; Glucose 213 mg/dl (70-99); Potassium 3.9 mmol/L (3.5-5.1); Sodium 142 mmol/L (135-145); Total Bilirubin 0.4 mg/dl (0.2-1.3); Total Protein 6.8 g/dl (6.3-8.2); eGFR 28.13
[2024-08-27 04:30] LABS: NT-proBNP 10200 pg/ml; Troponin I 0.027 ng/ml
--- NOTE | 2024-08-27 04:52 | HPS.HSE ---
Family Physician
-
Family Physician: NOT KNOW UNKNOWN - PT DOES
Chief Complaint
-
Shortness of breath
History of Present Illness
This is an 79-year-old female with past medical history of CHF with preserved EF, hypertension, hyperlipidemia presenting to the emergency department with worsening shortness of breath.
She reports chest pressure chest discomfort for the past 3 days. She reports orthopnea. Reports dyspnea on exertion. She also reports increased lower extremity swelling. She unable to tell me whether she has had any significant weight gain.
There was no change in her medications. She denies palpitations lightheadedness or dizziness. She denies any cough fevers or chills. She apparently was found to be 80% on room air at the snf. She is not on oxygen at baseline. They
noted coarse rales on exam over there.
She was last admitted in June and at that time there was question of pneumonia versus CHF. She was initially diuresed but she continues to have nonproductive cough. Diuresis was discontinued patient had further imaging and procalcitonin that was
negative for pneumonia. She was felt to have atelectasis and was treated with combination of cough medications and respiratory treatments. Atelectasis improved and patient was discharged to home off of diuretics due to elevated BUN/creatinine
(peak at 2.3). Patient was restarted on Lasix 20 mg on August 07. On August 27 she was uptitrated to 40 mg for 1 day and then to return to 20 mg daily thereafter.. Weight is unchanged compared to her discharge at around 78.5 kg (discharge was 78.9)
On arrival in the emergency department she was afebrile with a temp of 98.8, blood pressure was 150/68 with a pulse of 105. She was satting 99% on supplemental oxygen with a respirate rate of 29. ECG with sinus tachycardia at 109 without any acute
ST or T wave changes. Troponin was 0.027. BNP was elevated at 10,200. Chest x-ray shows increased interstitial markings but no focal consolidation. Flu was negative. COVID test was negative.
CBC was unremarkable. Her electrolytes were all within normal limits with BUN/creatinine at baseline at 32 and 1.8 respectively. Glucose was 213.
Medical History
Past Medical History
Past Medical History: Reports Other (Hypertension, hyperlipidemia, CKD stage III, ambulatory dysfunction due to right knee bob wound back 2019, CHF, GERD, CAD, DVT, C. difficile in the past.)
Past Surgical History: Reports Other (Hysterectomy, bilateral hip replacement, bilateral knee replacement, rotator cuff repair, IVC filter.)
Social History
Tobacco: Non-smoker
Alcohol: None
Drug: None
Family History
Family History: Not pertinent and Other (No premature CAD)
Allergies / Home Medications
Allergies reflects when Allergies were last updated in [facility].
Home Medications with original date entered in [facility]
Allergy/Medication List:
Allergies
Allergy/AdvReac Type Severity Reaction Status Date / Time
daptomycin Allergy CK>5000 Verified 07/03/24 22:45
doxylamine Allergy leg Verified 07/03/24 22:45
weakness
lactose Allergy INTOLERANT Verified 07/03/24 22:45
morphine Allergy Nausea / Verified 07/03/24 22:45
Vomiting
Penicillins Allergy Swelling/ch Verified 07/03/24 22:45
ildhood
Home Medications
apixaban 2.5 mg tablet (Eliquis) 2.5 mg PO BID Blood clot prevention/tx 11/23/20
cyanocobalamin (vitamin B-12) 1,000 mcg tablet 1,000 mcg PO DAILY Supplement 12/19/20
magnesium 250 mg tablet 500 mg PO FR@0800 Supplement 12/19/20
atorvastatin 10 mg tablet 10 mg PO HS High cholesterol 05/18/21
estradiol 1 mg tablet 1 mg PO DAILY Hormonal agent 05/18/21
fluticasone propionate 50 mcg/actuation nasal spray,suspension 1 spray intranasal BID Congestion 05/18/21
acetaminophen 325 mg tablet 650 mg (2 x 325 mg) PO Q4HPRN PRN mild pain/ fever>100.5F 05/27/21
bisacodyl 10 mg rectal suppository (OneLAX Bisacodyl) 10 mg WI DAILYPRN PRN if mom ineffective 05/27/21
pantoprazole 40 mg tablet,delayed release 40 mg PO DAILY Gastrointestinal Issue 01/18/23
polyethylene glycol 3350 17 gram oral powder packet 17 grams PO DAILY Constipation 01/18/23
sodium phosphates 19 gram-7 gram/118 mL enema (Fleet Enema) 118 ml WI DAILYPRN PRN if no bm aftr dulcolax 01/18/23
tamsulosin 0.4 mg capsule 0.4 mg PO DAILY Urinary Issue 01/18/23
sodium bicarbonate 650 mg tablet 650 mg PO BID #28 tabs 01/22/23
Saccharomyces boulardii 250 mg capsule (Florastor) 250 mg PO DAILY Gastrointestinal Issue 07/04/24
eucalyptus-menthol oral mucosal lozenge 3.1 mg mucous membrane [id number] PRN cough 07/04/24
ferrous sulfate 325 mg (65 mg iron) tablet 325 mg PO BID Supplement 07/04/24
furosemide 20 mg tablet (Lasix) 40 mg PO DAILY Fluid Retention/Swelling 07/04/24
Held on 07/09/24. Instructions: Resume on 07/16/24.
glucagon HCl 1 mg solution for injection (Glucagon (HCl) Emergency Kit) 1 mg SC Q30M PRN hypoglycemia 07/04/24
guaifenesin 600 mg tablet, extended release 12 hr (Mucinex) 600 mg PO BID Congestion 07/04/24
insulin aspart U-100 100 unit/mL subcutaneous solution 3 unit SC AC Diabetes 07/04/24
insulin glargine 100 unit/mL subcutaneous solution 14 unit SC HS Diabetes 07/04/24
ipratropium 0.5 mg-albuterol 3 mg (2.5 mg base)/3 mL nebulization soln 3 ml inhalation R Q6HPRN PRN sob 07/04/24
levothyroxine 25 mcg tablet 25 mcg PO DAILY Thyroid 07/04/24
loperamide 2 mg tablet (Imodium A-D) 2 mg PO Q6HPRN PRN diarrhea 07/04/24
magnesium hydroxide 400 mg/5 mL oral suspension (Milk of Magnesia) 2,400 mg PO DAILYPRN PRN if no bm by 3rd day 07/04/24
melatonin 3 mg tablet 6 mg PO HS Sleep 07/04/24
menthol 0.44 %-zinc oxide 20.6 % topical ointment (Moisture Barrier Ointment) 1 applic topical TID incontinence care 07/04/24
sennosides 8.6 mg tablet (senna) 17.2 mg PO HS Constipation 07/04/24
carvedilol 12.5 mg tablet 12.5 mg PO BID 30 days #60 tabs 07/09/24
duloxetine 40 mg capsule,delayed release sprinkle 40 mg PO DAILY 08/27/24
hydralazine 10 mg tablet 10 mg PO Q6H PRN sbp > 150 08/27/24
Review of Systems
-
Constitutional: Reports No Symptoms
EENT: Reports No Symptoms
Respiratory: Reports Trouble Breathing
Cardiac: Reports No Symptoms
Abdomen/GI: Reports No Symptoms
: Reports No Symptoms
Musculoskeletal: Reports No Symptoms
Skin: Reports No Symptoms
Neurological: Reports No Symptoms
Endocrine: Reports No Symptoms
Hematologic/Lymphatic: Reports No Symptoms
Psych: Reports No Symptoms
Physical Exam
Vital Signs
Vital Signs
Temp Pulse Resp BP Pulse Ox
98.8 F 105 29 149/68 99
08/27/24 02:39 08/27/24 04:02 08/27/24 03:45 08/27/24 04:02 08/27/24 03:45
Physical Exam
General: No Apparent Distress and Morbidly Obese
HEENT: NormoCephalic, Anicteric, Moist mucous membranes, Atraumatic and Oxygen
Respiratory: Wheezes
Cardiac: S1/S2 and Tachycardia
Breast: Deferred by me
GI: Soft, Non Tender, Non Distended and Normal Bowel Sounds
Rectal: Deferred by Provider
Genito-urinary: Deferred by me
Musculoskeletal: No Clubbing, No Cyanosis, Edema, Left Lower Extremity (1+) and Edema, Right Lower Extremity (1+)
Skin: Warm and Other (Right foot second toe wound clean dry and intact, dressing change reported as 416)
Neuro: Nonfocal/grossly intact and Other (Patient very sleepy but easily arousable, able to answer simple questions but then goes back to sleep. Unable to participate fully in examination.)
Hematologic/Lymphatic: Lymphadenopathy
Psych: Calm
Laboratory Results
-
08/27/24 03:49
08/27/24 03:49
Laboratory Results
Total Bilirubin 0.4 mg/dl (0.2-1.3) 08/27/24 03:49
AST 13 U/L (14-36) L 08/27/24 03:49
ALT < 10 U/L (0-35) 08/27/24 03:49
Alkaline Phosphatase 69 U/L (38-126) 08/27/24 03:49
Troponin I 0.027 ng/ml 08/27/24 03:49
Data Reviewed
-
Diagnostic Radiology: Image Personally Visualized and interpreted
Medical Tests (Nuc Med, Echo, EKG etc): Image Personally Visualized and interpreted
Lab Data: Labs Reviewed by me
Old Records: Reviewed
Impression/Plan
-
IMPRESSION:
IMPRESSION:
This is a 79-year-old female with history of CKD stage IV, CHF with preserved EF, last EF was 74% with diastolic dysfunction, morbid obesity, insulin-dependent diabetes who is here from [facility] for shortness of breath and hypoxia. Reports
orthopnea. She has no chest pain. ECG is nonischemic. Troponin [place] [address] which is higher than the chronically elevated levels of around 3-5000. X-ray with mild interstitial edema similar to prior.. Exam shows trace
bilateral lower extremity edema. No flu/covid. She has diffuse wheezes bilaterally. She is currently satting 100% on 2 L. Based on history of diuretic down titration, hypoxia dyspnea on exertion, orthopnea and diffuse wheezing without history of
COPD or asthma and no evidence of bronchitis I suspect the wheezing is from interstitial edema from CHF exacerbation. However when she was last admitted she did not have as much wheezing and ultimately was found to have atelectasis as the etiology
of her hypoxia.
PLAN:
1. CHF exacerbation/SOB -
- admit to telemetry
- trial of diuresis with lasix 40 iv bid then titration down to 40 daily to avoid XANDER if breathing improve.
- follow creatinine, i/os and daily weights
- incentive spirometry for atelectasis
- No h/o SARA and patient shows no evidence of CO2 retention.
2. Wheezing - Suspect cardiac. No hx of COPD/Asthma/bronchiectasis. Never smoked.
- diuresis as above
- duonebs
- hold off on steroids unless wheezing worsens.
2. CKD - Patient at baseline creatinine compared to prior
- avoid nephrotoxins
- monitor creatinine with more aggressive diuresis above
- renal dose medications
- continue tamsulosin for reflux uropathy
- continue bicarb orally for now
- no indication for nephrology consult
3. DM II
- continue insulin regimen, 14 lantus hs, 3 aspart ac
- low dose sliding scale insulin achs
DVT PPX - apixaban 2.5 bid
Code status - Full Code
[2024-08-27] MEDS: DUONEB 3 ML INH (05:44)
[2024-08-27] MEDS: LASIX 60 MG IV (05:44)
[2024-08-27] MEDS: FLUSH (NSS) 1 FLUSH IV (05:45)
[2024-08-27 06:02] LABS: Venous Blood Gas B.E. -3.6 mmol/L (-4 to +4); Venous Blood Gas HCO3 23.8 mmol/L (22-27); Venous Blood Gas O2 Sat % 98.5 %; Venous Blood Gas pCO2 53 mmHg (35-48); Venous Blood Gas pH 7.26 (7.32-7.43); Venous Blood Gas pO2 108 mmHg (30-50)
--- NOTE | 2024-08-27 07:48 | W.PN.HOSP.TC ---
Today's Communication/Plan
-
see A/P
Assessment / Plan
Assessment / Plan
HPI: 79-year-old female with history of CKD stage IV, CHF with preserved EF, last EF was 74% with diastolic dysfunction, morbid obesity, insulin-dependent diabetes, from jail; p/w shortness of breath, hypoxia and reported orthopnea. She
apparently was found to be 80% [facility]. She is not on oxygen at baseline.
Exam showed trace bilateral lower extremity edema and diffuse wheezes bilaterally.
[place] [address] (higher than baseline which is between 3 to 5000). Her X-ray showed mild interstitial edema similar to prior.
She was placed on 2L NC with sat at 100%.
A/P:
# Acute on chronic diastolic CHF exacerbation
last echo from 06/2024: EF 55-60%. Mild left ventricular hypertrophy. No significant valvular disease.
s/p IV lasix 60 mg, cont IV lasix 40 mg daily
follow creatinine, i/os and daily weights
incentive spirometry for atelectasis
Card CS
# Wheezing - Suspect cardiac.
No hx of COPD/Asthma/bronchiectasis. Never smoked.
diuresis as above
duonebs
hold off on steroids unless wheezing worsens.
# CKD stage 4
monitor creatinine diuresis as stated above
avoid nephrotoxins
renal dose medications
continue tamsulosin for reflux uropathy
continue bicarb orally for now
# IDDM
continue insulin regimen: adjust [employer] Lantus from 14 to 10 units HS. Cont Aspart 3 units AC
low dose sliding scale insulin achs
DVT PPX - apixaban 2.5 bid
Code status - Full Code
Anticipated Discharge: > 48 hours
Subjective/Interval History
-
Date of Service: August 27, 2024
Objective Data
-
Labs:
Laboratory Results
08/27/24
03:49
WBC 6.4
Hgb 11.6 L
Hct 36.3 L
Plt Count 172
Sodium 142
Potassium 3.9
Chloride 110 H
Carbon Dioxide 21 L
BUN 32 H
Creatinine 1.8 H
Glucose 213 H
Calcium 8.4
Total Bilirubin 0.4
AST 13 L
ALT < 10
Alkaline Phosphatase 69
Vital Signs:
Vital Signs
Temp Pulse Resp BP Pulse Ox
37.1 C 99 24 152/74 98
08/27/24 02:39 08/27/24 06:00 08/27/24 06:00 08/27/24 06:00 08/27/24 06:00
Review of Systems
-
Unable to obtain full review of systems at this time due to: Acuity and Other (poor historian)
Physical Exam
-
General: Well Developed, Well Nourished, Comfortable, Respiratory Distress (mild) and Appears Chronically Ill
HEENT: PERRLA and Oxygen (2L NC)
Respiratory: Wheezes and Non Labored Respirations; Negative Accessory Resp Muscle Use
Cardiac: Regular Rhythm and S1/S2
GI: Soft and Nontender
Musculoskeletal: Edema, Right Lower Extrem and Edema, Left Lower Extrem
Skin: Warm
Neuro: Awake
Psych: Calm
Data Reviewed
-
Labs: Labs Reviewed by me
[2024-08-27] MEDS: CYMBALTA DELAYED RELEASE 40 MG PO (09:18)
[2024-08-27] MEDS: SYNTHROID 25 MCG PO (09:18)
[2024-08-27] MEDS: PROTONIX 40 MG PO (09:18)
[2024-08-27] MEDS: FEOSOL 325 MG PO ×2 (09:18→20:23)
[2024-08-27] MEDS: VITAMIN B-12 1000 MCG PO (09:18)
[2024-08-27] MEDS: ESTRACE 1 MG PO (09:18)
[2024-08-27] MEDS: ELIQUIS 2.5 MG PO ×2 (09:18→20:23)
[2024-08-27] MEDS: MUCINEX 600 MG PO ×2 (09:18→20:23)
[2024-08-27] MEDS: SODIUM BICARBONATE 650 MG PO ×2 (09:23→20:23)
[2024-08-27] MEDS: FLORASTOR 250 MG PO (09:24)
[2024-08-27] MEDS: MIRALAX 17 GRAMS PO (09:24)
[2024-08-27] MEDS: FLOMAX 0.4 MG PO (09:24)
[2024-08-27 09:27] LABS: Glucose - Point of Care 215 mg/dl (70-99)
[2024-08-27] MEDS: NOVOLOG FLEXPEN 3 UNITS SC ×3 (10:01→18:14)
[2024-08-27] MEDS: ProAIR HFA INHALER INH (10:40)
[2024-08-27] MEDS: ProAIR HFA INHALER 1 PUFF INH ×3 (11:04→19:22)
--- NOTE | 2024-08-27 11:08 | CON.CAR ---
Addendum entered and electronically signed by Jose Antonio Catalan MD 08/27/24 15:01:
I saw and examined the patient.
The resident's note was reviewed and I agree with the note.
Comment:
Jocelyn Huitron is an 79-year-old female (known to Dr. León) with HFpEF, hypertension, insulin-dependent diabetes, pulmonary hypertension, CKD, and dementia. Cardiology is consulted due to concern for HFpEF exacerbation. She was hospitalized at
07/04/24 - 07/09/24 for HFpEF exacerbation. She underwent diuresis and was seen in our office for hospital follow-up on 07/18/24. At that time she was doing well on Lasix 20mg daily. She represented to the hospital for chest discomfort, dyspnea on
exertion and lower extremity swelling. ProBNP 10k (from 8600 on last admit), Cr 1.8 (at baseline). CXR with possible pulmonary edema. She fells improved after getting IV Lasix.
Physical exam with RRR, no murmurs, bilateral lung crackles, trace LE edema.
HFpEF, acute on chronic. Severe exacerbation. Agree with IV Lasix 40mg daily. Suspect she is close to dry weight (167 lb as outpatient). Monitor for toxicity with daily electrolytes, telemetry, strict I/Os. Start SGLT2i. Not a candidate for MRA. GFR
<30.
Paroxysmal afib. Continue Carvedilol and Eliquis.
Original Note:
Consultation
Consultation Request
Date/Time Consultation Requested: 08-27-24
Date/Time Consultation Performed: 08-27-24
Requesting Provider: Dr. Olga Solano
Performing Provider: Dr. Jose Antonio Catalan
Reason for Consultation: SOB
Medical History
-
Chief Complaint: SOB, cough
History of Present Illness:
Jocelyn Huitron, 79-year-old female with cHFpEF, HTN, HLD, suspected paroxysmal AFib, CKD IIIb, pulmonary HTN and dementia, is admitted for decompensated HF. She reports feeling short of breath with exertion and even mildly at rest for the past
couple of days. Notes increased BL LE edema over the same time frame. She was admitted in June earlier this year for the same reason, and was discharged without furosemide due to worsening renal failure. As an outpatient, she was put back on
furosemide 20 mg, increased to 40 before cutting back to 20. She reports compliance with her medications. Unclear what her dry weight is, but it appears to be the same weight she was discharged on previously. She is, however, volume overloaded with
considerable lower extremity edema and crackles on respi exam. Admitted for intravenous diuresis.
Past Medical History
Past Medical History: Other (chronic diastolic HF, hypertension, previous syncope/near-syncope status-post LINQ implantation (05/21/20), hyperlipidemia, pulmonary hypertension, rheumatoid arthritis, fibromyalgia, renal insufficiency, obesity, and
dementia.)
Social History
Tobacco: Non-Smoker
Personal: Single
Living: [facility]
Family History
Family History: Reviewed & Not Pertinent
Allergies / Home Medications
Allergy/AdvReac Type Severity Reaction Status Date / Time
daptomycin Allergy CK>5000 Verified 07/03/24 22:45
doxylamine Allergy leg Verified 07/03/24 22:45
weakness
lactose Allergy INTOLERANT Verified 07/03/24 22:45
morphine Allergy Nausea / Verified 07/03/24 22:45
Vomiting
Penicillins Allergy Swelling/ch Verified 07/03/24 22:45
ildhood
�Medication �Instructions �Recorded �Confirmed �Type
apixaban 2.5 mg tablet (Eliquis) 2.5 mg PO BID Blood clot 11/23/20 08/27/24 History
prevention/tx
cyanocobalamin (vitamin B-12) 1,000 mcg PO DAILY Supplement 12/19/20 08/27/24 History
1,000 mcg tablet
atorvastatin 10 mg tablet 10 mg PO HS High cholesterol 05/18/21 08/27/24 History
estradiol 1 mg tablet 1 mg PO DAILY Hormonal agent 05/18/21 08/27/24 History
fluticasone propionate 50 1 spray intranasal BID Congestion 05/18/21 08/27/24 History
mcg/actuation nasal
spray,suspension
acetaminophen 325 mg tablet 650 mg (2 x 325 mg) PO Q4HPRN PRN 05/27/21 08/27/24 Rx
mild pain/ fever>100.5F
bisacodyl 10 mg rectal suppository 10 mg OR DAILYPRN PRN if mom 05/27/21 08/27/24 Rx
(OneLAX Bisacodyl) ineffective
pantoprazole 40 mg tablet,delayed 40 mg PO DAILY Gastrointestinal 01/18/23 08/27/24 History
release Issue
polyethylene glycol 3350 17 gram 17 grams PO DAILY Constipation 01/18/23 08/27/24 History
oral powder packet
sodium phosphates 19 gram-7 118 ml OR DAILYPRN PRN if no bm 01/18/23 08/27/24 History
gram/118 mL enema (Fleet Enema) aftr dulcolax
tamsulosin 0.4 mg capsule 0.4 mg PO DAILY Urinary Issue 01/18/23 08/27/24 History
Saccharomyces boulardii 250 mg 250 mg PO DAILY Gastrointestinal 07/04/24 08/27/24 History
capsule (Florastor) Issue
ferrous sulfate 325 mg (65 mg 325 mg PO BID Supplement 07/04/24 08/27/24 History
iron) tablet
insulin aspart U-100 100 unit/mL 0 sliding scale dose SC AC Diabetes 07/04/24 08/27/24 History
subcutaneous solution
insulin glargine 100 unit/mL 14 unit SC HS Diabetes 07/04/24 08/27/24 History
subcutaneous solution
ipratropium 0.5 mg-albuterol 3 mg 3 ml inhalation R Q6HPRN PRN sob 07/04/24 08/27/24 History
(2.5 mg base)/3 mL nebulization
soln
levothyroxine 25 mcg tablet 25 mcg PO DAILY Thyroid 07/04/24 08/27/24 History
loperamide 2 mg tablet (Imodium 2 mg PO Q6HPRN PRN diarrhea 07/04/24 08/27/24 History
A-D)
magnesium hydroxide 400 mg/5 mL 2,400 mg PO DAILYPRN PRN if no bm 07/04/24 08/27/24 History
oral suspension (Milk of Magnesia) by 3rd day
melatonin 3 mg tablet 6 mg PO HS Sleep 07/04/24 08/27/24 History
sennosides 8.6 mg tablet (senna) 17.2 mg PO HS Constipation 07/04/24 08/27/24 History
carvedilol 12.5 mg tablet 12.5 mg PO BID 30 days #60 tabs 07/09/24 08/27/24 Rx
ammonium lactate 12 % lotion 1 applic topical DAILY bue/ble 08/27/24 08/27/24 History
(AmLactin)
duloxetine 40 mg capsule,delayed 40 mg PO DAILY Mental 08/27/24 08/27/24 History
release sprinkle Health/Anxiety
furosemide 20 mg tablet (Lasix) 20 mg PO DAILY Blood Pressure 08/27/24 08/27/24 History
hydralazine 10 mg tablet 10 mg PO Q6HPRN PRN sbp > 150 08/27/24 08/27/24 History
magnesium oxide 500 mg PO FR Supplement 08/27/24 08/27/24 History
menthol 0.44 %-zinc oxide 20.6 % 1 applic topical TID sacrum/groin 08/27/24 08/27/24 History
topical ointment (Moisture Barrier
Ointment)
menthol 3.2 mg lozenges 3.2 mg mucous membrane [id number] PRN 08/27/24 08/27/24 History
sore throat
sodium bicarbonate 650 mg tablet 650 mg PO BID 08/27/24 08/27/24 History
Review of Systems
-
History Source: Patient
Constitutional: No Symptoms
EENT: No Symptoms
Respiratory: Cough and Trouble Breathing
Cardiac: No Symptoms
Abdomen/GI: No Symptoms
: No Symptoms
Musculoskeletal: Edema
Skin: No Symptoms
Neurological: No Symptoms
Endocrine: No Symptoms
Hematologic/Lymphatic: No Symptoms
Physical Exam
Vital Signs
Temp Pulse Resp BP Pulse Ox
98.1 F 99 20 175/83 95
08/27/24 08:56 08/27/24 08:56 08/27/24 08:56 08/27/24 08:56 08/27/24 08:56
Lab Results
08/27/24 03:49
08/27/24 03:49
Troponin I 0.027 ng/ml 08/27/24 03:49
Ejr-H-Vnfhrxzeaue Pept 56571 pg/ml 08/27/24 03:49
Physical Exam
General: No Apparent Distress and Comfortable
HEENT: Normocephalic, Anicteric, Moist Mucous Membranes and Atraumatic
Respiratory: Crackles
Cardiac: S1/S2 and Regular Rhythm; Negative Murmur or Rub
GI: Soft, Non Tender and Non Distended
Genito-urinary: No Costovertebral Tender
Musculoskeletal: No Clubbing, No Cyanosis and Edema (2+ BL LE)
Skin: Warm and Dry
Neuro: Awake, Alert, Oriented, No Motor Deficits and Nonfocal/Grossly Intact
Psych: Calm
Impression / Plan
-
Acute on chronic heart failure with preserved ejection fraction
- proBNP 10,200 on admission and patient appears volume overloaded.
- IV furosemide 40 once a day.
- Daily weights, I&Os, sodium and fluid restriction.
- Follow electrolytes and renal function.
- Check SGLT2 pricing; will discuss with patient and family.
- Not a candidate for MRA due to renal function.
Suspected paroxysmal atrial fibrillation'
- On carvedilol and apixaban.
- Remained unclear during the previous admission as well.
- In SR; monitor on tele.
Type II pulmonary hypertension
- Contributing to the dyspnea.
Chronic kidney disease, stage IIIb
- Monitor renal function while diuresing.
Type II diabetes mellitus
Hyperlipidemia
Primary hypertension
Dementia
Chronic constipation
GERD
Ambulatory dysfunction
Obesity due to excess calorie intake
--- NOTE | 2024-08-27 13:15 | CM ---
Addendum entered by Cathryn Nails 08/27/24 13:32:
CM consult completed
Pricing for Dapagliflozin (Farxiga) 10mg daily for 90 days, & Empagliflozin (Jardiance) 10mg daily for 90 days
CM called & spoke with Alexsander pharmacist at [facility] who checked patient prescription coverage ([facility] [employer] part D) and states Dapagliflozin 10mg daily & Empagliflozin 10mg daily are covered no co-pay
wendy Rhodes
Original Note:
Patient seen at bedside
IA completed
Patient is a LTC resident at [facility] since 06/09
Spoke with Cora garcia
LM with son Neville [phone]
PLOF: wheelchair, manjula lift transfer, adl's dependent
DME: Wheelchair, manjula, walker
PCP: Maged Bledsoe
Pharmacy: [facility]
PLAN: Return to [facility] when medically stable
[2024-08-27 13:28] LABS: Glucose - Point of Care 223 mg/dl (70-99)
[2024-08-27] MEDS: FARXIGA 10 MG PO (17:00)
[2024-08-27] MEDS: ZINC OXIDE OINTMENT 1 APPLIC TOPICAL ×2 (17:00→21:25)
[2024-08-27 17:20] LABS: Glucose - Point of Care 186 mg/dl (70-99)
[2024-08-27] MEDS: COREG 12.5 MG PO (20:23)
[2024-08-27 21:10] LABS: Glucose - Point of Care 278 mg/dl (70-99)
[2024-08-27] MEDS: LIPITOR 10 MG PO (21:23)
[2024-08-27] MEDS: LANTUS 0.1 UNITS SC (21:23)
[2024-08-27] MEDS: MELATONIN 6 MG PO (21:24)
[2024-08-27] MEDS: SENOKOT 17.2 MG PO (21:24)
[2024-08-28 03:46] VITALS: BP 159/74
[2024-08-28] MEDS: SYNTHROID 25 MCG PO (05:27)
[2024-08-28 06:00] VITALS: BMI 33.2
[2024-08-28 07:00] VITALS: BP 155/82
[2024-08-28 07:10] LABS: Blood Urea Nitrogen 33 mg/dl (7-17); Calcium 8.7 mg/dl (8.4-10.2); Carbon Dioxide 29 mmol/L (22-30); Chloride 107 mmol/L (98-107); Estimated Creatinine Clearance 22 ml/min; Glucose 215 mg/dl (70-99); Magnesium 1.8 mg/dl (1.6-2.3); Potassium 3.8 mmol/L (3.5-5.1); Sodium 142 mmol/L (135-145); eGFR 28.13
[2024-08-28] MEDS: ProAIR HFA INHALER 1 PUFF INH (07:26)
[2024-08-28] MEDS: MIRALAX 17 GRAMS PO (07:29)
[2024-08-28] MEDS: NOVOLOG FLEXPEN 3 UNITS SC (07:29)
[2024-08-28] MEDS: CYMBALTA DELAYED RELEASE 40 MG PO (07:30)
[2024-08-28] MEDS: FEOSOL 325 MG PO ×2 (07:30→19:44)
[2024-08-28] MEDS: FLOMAX 0.4 MG PO (07:30)
[2024-08-28] MEDS: COREG 12.5 MG PO ×2 (07:30→19:44)
[2024-08-28] MEDS: FARXIGA 10 MG PO (07:30)
[2024-08-28] MEDS: ESTRACE 1 MG PO (07:30)
[2024-08-28] MEDS: FLORASTOR 250 MG PO (07:30)
[2024-08-28] MEDS: ELIQUIS 2.5 MG PO ×2 (07:30→19:44)
[2024-08-28] MEDS: MUCINEX 600 MG PO ×2 (07:30→19:44)
[2024-08-28] MEDS: SODIUM BICARBONATE 650 MG PO ×2 (07:31→19:44)
[2024-08-28] MEDS: VITAMIN B-12 1000 MCG PO (07:31)
[2024-08-28] MEDS: PROTONIX 40 MG PO (07:31)
[2024-08-28] MEDS: LASIX 40 MG IV (07:31)
[2024-08-28] MEDS: ZINC OXIDE OINTMENT 1 APPLIC TOPICAL ×3 (07:33→20:57)
[2024-08-28] MEDS: DESENEX/MITRAZOL/ZEASORB 1 APPLIC TOPICAL ×2 (07:33→19:44)
--- NOTE | 2024-08-28 08:07 | W.PN.CD ---
Today's Communication / Plan
-
reweigh
continue diuresis
Impression / Plan
-
Cardiology : Romelia (2020)
Acute on chronic heart failure with preserved ejection fraction
- proBNP 10,200 on admission and patient appears volume overloaded.
- IV furosemide 40 once a day.
- Daily weights---but unreliable will ask for a repeat of today's, I doubht she has lost 9lbs in 1 day , I&Os, sodium and fluid restriction.
- Follow electrolytes and renal function.
- SGLT2 inhibitor covered by insurance but current creatinine clearance limits our ability to initiate this therapy. Can consider when creatinine clearance improves to greater than 25.
- Not a candidate for MRA due to renal function.
SOB: She is also quite rhoncherous and bronchospastic
?bronchitis, does she aspirate?
-per primary team
Suspected paroxysmal atrial fibrillation'
- On carvedilol and apixaban.
- Remained unclear during the previous admission as well.
- In SR; monitor on tele.
Type II pulmonary hypertension
- Contributing to the dyspnea.
Chronic kidney disease, stage IIIb
-improving with diuresis
- Monitor renal function while diuresing.
Type II diabetes mellitus
Hyperlipidemia
Primary hypertension
Dementia
Chronic constipation
GERD
Ambulatory dysfunction--wheelchair bound
Obesity due to excess calorie intake
Subjective:
she is feeling better since yesterday, no appetite as nothing tastes good, no cp
Data:
TTE 07/04/2024 LVEF 55 to 60%, no significant valve disease. Elevated E to E prime.
Physical Exam
Vital Signs/Labs
Vital Signs
Temp Pulse Resp BP Pulse Ox
97.8 F 81 16 155/82 99
08/28/24 07:00 08/28/24 07:30 08/28/24 07:30 08/28/24 07:31 08/28/24 07:30
08/27/24 08/28/24 08/29/24
06:59 06:59 06:59
Actual Weight 173 lb 1.006 oz 164 lb 6 oz
08/27/24 03:49
08/28/24 06:12
Magnesium 1.8 mg/dl (1.6-2.3) 08/28/24 06:12
08/27/24
03:49
Xik-M-Ohqddcwgwtt Pept 63592
LAB Results
08/27/24
03:49
Troponin I 0.027
Physical Exam
Constitutional: No acute distress
Cardiovascular: Rhythm & rate is regular, Systolic murmur absent, Diastolic murmur absent and Pedal edema present (doughy feet)
Respiratory: Respiratory effort normal, Labored respirations (diffusely ) and Wheeze Present
Neuro/Psych: AO x 3
Data Reviewed
-
Date of Service: August 28, 2024
Medical Decision Making: Review of Case with other Provider (Dr Solano, she is quite rhoncherous wonder if concominant pulm process)
[2024-08-28 08:56] VITALS: BMI 33.3
--- NOTE | 2024-08-28 10:48 | W.PN.HOSP.TC ---
Addendum entered and electronically signed by Olga Solano MD 08/28/24 13:04:
# Stage 1 right 2nd toe pressure injury, POA
Original Note:
Today's Communication/Plan
-
see AP
Assessment / Plan
Assessment / Plan
HPI: 79-year-old female with history of CKD stage IV, CHF with preserved EF, last EF was 74% with diastolic dysfunction, morbid obesity, insulin-dependent diabetes, from senior care; p/w shortness of breath, hypoxia and reported orthopnea. She
apparently was found to be 80% on room air at the senior care. She is not on oxygen at baseline.
Exam showed trace bilateral lower extremity edema and diffuse wheezes bilaterally.
[place] [address] (higher than baseline which is between 3 to 5000). Her X-ray showed mild interstitial edema similar to prior.
She was placed on 2L NC with sat at 100%.
A/P:
# Acute on chronic diastolic CHF exacerbation
last echo from 06/2024: EF 55-60%. Mild left ventricular hypertrophy. No significant valvular disease.
s/p IV lasix 60 mg, cont IV lasix 40 mg daily
follow creatinine, i/os and daily weights
incentive spirometry for atelectasis
Card on board
# Acute hypoxic resp insufficiency
Currently on 2L NC, wean to RA as tolerated. According to pt, she is not on home O2
# Wheezing - Suspect cardiac vs bronchospastic
No hx of COPD/Asthma/bronchiectasis. Never smoked.
diurese as above
Cont duonebs ATC and PRN
weight has improved but wheezing persisted, start Decadron IV BID
SPL eval for dysphagia?
# CKD stage 4
monitor creatinine diuresis as stated above
avoid nephrotoxins
renal dose medications
continue tamsulosin for reflux uropathy
continue bicarb orally for now
# IDDM
continue insulin regimen: adjust [employer] SAL[employer] SUPER[employer]OR Lantus to 15 units HS (REAL [employer] SALES SUPERVISOR 14 units HS), adjust Aspart to 8 units AC ([employer] SUPERVISOR 3 units AC)
low dose sliding scale insulin achs
DVT PPX - apixaban 2.5 bid
Code status - Full Code
DW Card
DW RN
total time 51 min
Anticipated Discharge: 24 - 48 hours
Subjective/Interval History
-
Date of Service: August 28, 2024
Objective Data
-
Labs:
Laboratory Results
08/28/24
06:12
Sodium 142
Potassium 3.8
Chloride 107
Carbon Dioxide 29
BUN 33 H
Creatinine 1.8 H
Glucose 215 H
Calcium 8.7
Vital Signs:
Vital Signs
Temp Pulse Resp BP Pulse Ox
36.6 C 81 16 155/82 99
08/28/24 07:00 08/28/24 07:30 08/28/24 07:30 08/28/24 07:31 08/28/24 07:30
I&O
08/27/24 08/28/24 08/29/24
06:59 06:59 06:59
Intake Total 320 / 320
Balance 320 / 320
Review of Systems
-
Unable to obtain full review of systems at this time due to: Other (poor historian)
Physical Exam
-
General: Well Developed, Well Nourished, Comfortable, Respiratory Distress (very mild), Conversant and Appears Chronically Ill
HEENT: Normocephalic, Atraumatic and Oxygen (2L NC)
Respiratory: Wheezes and Non Labored Respirations; Negative Accessory Resp Muscle Use
Cardiac: Regular Rhythm and S1/S2
GI: Soft and Nontender
Musculoskeletal: Edema, Right Lower Extrem and Edema, Left Lower Extrem
Skin: Warm
Neuro: Awake
Psych: Calm
Data Reviewed
-
Labs: Labs Reviewed by me
[2024-08-28 11:00] VITALS: BP 134/55
[2024-08-28] MEDS: DUONEB 3 ML INH ×3 (11:25→20:16)
[2024-08-28 11:44] LABS: Glucose - Point of Care 206 mg/dl (70-99)
--- NOTE | 2024-08-28 11:59 | PN.CDI ---
CDI
- -
CDI:
Physician Documentation Request
Admit Date: 08/27/24 05:45
Dear Doctor Xiomara,
Please review the following and provide your response in the progress notes.
Clinical Indicators:
- RN skin assessments indicate Stage 1 right 2nd toe pressure injury, POA
Physician documentation of the type and location of wounds is required for compliant documentation. Based on the above clinical findings and your assessment, please provide the following in your progress note:
1. Location of the ulcer/wound, including laterality.
2. Type (etiology) of ulcer/wound:
- Diabetic ulcer
- Arterial (ischemic) ulcer
- Traumatic wound
- Pressure (decubitus) ulcer
- Other
Use of terms such as suspected, likely, concern for, or probable (associated with a specific diagnosis that is being evaluated, monitored, or treated as if it exists) are acceptable and can be coded in the inpatient setting, when documented at the
time of discharge.
Thank you,
Lee Kirk RN
CDI Specialist
Please use your independent medical judgment in providing your response.
*Source: National Pressure Ulcer Advisory Panel (NPUAP)
[2024-08-28] MEDS: NOVOLOG FLEXPEN 8 UNITS SC (12:11)
[2024-08-28] MEDS: NOVOLOG FLEXPEN-LOW RESISTANCE 2 UNITS SC (12:12)
[2024-08-28] MEDS: DECADRON 4 MG IV ×2 (12:16→23:11)
--- NOTE | 2024-08-28 12:18 | CM ---
Patient chart reviewed
ST eval ordered
cont IV Lasix
Patient is a LTC resident at [facility]
PLAN: Return to [facility] when stable
Report #: [phone]
Fax #: [phone]
--- NOTE | 2024-08-28 12:22 | PTOTSP ---
Speech Language Pathology:
Initial speech therapy assessment completed. Oropharyngeal swallow appeared functional at bedside with no overt s/s aspiration observed, however unable to r/o at bedside. O2 via NC in place for assessment with no signs of respiratory distress noted
prior/during/after solid and liquid trials assessed.
Recommend:
1) Continue regular solid, thin liquid diet
2) Meds as tolerated
3) Aspiration precautions including upright positioning, slow rate, small bites/sips, oral care pre/post meals.
4) PO intake only when awake/alert. Avoid PO intake if SOB.
5) ST to f/u to ensure diet tolerance
DEPUTY HEAD discussed assessment results and recommendations with RN
--- NOTE | 2024-08-28 13:55 | PTOTSP ---
CHART REVIEWED. PER CHART, PATIENT [facility], IS DEPENDENT WITH ALL MOBILITY, USES [employer] LIFT FOR OUT OF BED TO WHEELCHAIR. IF IT IS DESIRED THAT PATIENT BE OUT OF BED, RECOMMEND STAFF USE YNES LIFT. WILL
DISCHARGE FROM SKILLED P.T. SERVICES.
--- NOTE | 2024-08-28 13:56 | PTOTSP ---
Orders received. Chart reviewed. 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 Pt currently dependent with all ADLs and is a manjula transfer. Skilled OT services not indicated at this time. Will sign off.
[2024-08-28 15:00] VITALS: BP 129/51
[2024-08-28 16:50] LABS: Glucose - Point of Care 56 mg/dl (70-99)
[2024-08-28 17:18] LABS: Glucose - Point of Care 105 mg/dl (70-99)
[2024-08-28] MEDS: NOVOLOG FLEXPEN SC (17:18)
[2024-08-28] MEDS: NOVOLOG FLEXPEN-LOW RESISTANCE SC (17:18)
[2024-08-28 19:26] VITALS: BP 126/57
[2024-08-28] MEDS: LIPITOR 10 MG PO (20:57)
[2024-08-28] MEDS: MELATONIN 6 MG PO (20:57)
[2024-08-28] MEDS: SENOKOT 17.2 MG PO (20:57)
[2024-08-28 21:08] LABS: Glucose - Point of Care 287 mg/dl (70-99)
[2024-08-28] MEDS: LANTUS 0.15 UNITS SC (21:41)
[2024-08-28 23:30] VITALS: BP 136/51
[2024-08-29 03:38] VITALS: BP 150/78
[2024-08-29 03:50] LABS: Glucose - Point of Care 244 mg/dl (70-99)
[2024-08-29 05:13] VITALS: BMI 33.7
[2024-08-29] MEDS: SYNTHROID 25 MCG PO (05:40)
[2024-08-29 06:35] LABS: Blood Urea Nitrogen 35 mg/dl (7-17); Calcium 8.9 mg/dl (8.4-10.2); Carbon Dioxide 28 mmol/L (22-30); Chloride 104 mmol/L (98-107); Estimated Creatinine Clearance 21 ml/min; Glucose 223 mg/dl (70-99); Magnesium 1.9 mg/dl (1.6-2.3); Potassium 4.2 mmol/L (3.5-5.1); Sodium 141 mmol/L (135-145); eGFR 26.36
[2024-08-29 07:00] VITALS: BP 120/57
[2024-08-29] MEDS: DUONEB 3 ML INH ×4 (07:33→17:47)
[2024-08-29 07:40] LABS: Glucose - Point of Care 233 mg/dl (70-99)
[2024-08-29] MEDS: FLOMAX 0.4 MG PO (08:35)
[2024-08-29] MEDS: FLORASTOR 250 MG PO (08:35)
[2024-08-29] MEDS: CYMBALTA DELAYED RELEASE 40 MG PO (08:35)
[2024-08-29] MEDS: FEOSOL 325 MG PO ×2 (08:35→20:27)
[2024-08-29] MEDS: MIRALAX 17 GRAMS PO (08:35)
[2024-08-29] MEDS: SODIUM BICARBONATE 650 MG PO ×2 (08:35→20:27)
[2024-08-29] MEDS: ELIQUIS 2.5 MG PO ×2 (08:35→20:27)
[2024-08-29] MEDS: ESTRACE 1 MG PO (08:35)
[2024-08-29] MEDS: VITAMIN B-12 1000 MCG PO (08:35)
[2024-08-29] MEDS: MAGNESIUM OXIDE 500 MG PO (08:35)
[2024-08-29] MEDS: FARXIGA 10 MG PO (08:35)
[2024-08-29] MEDS: MUCINEX 600 MG PO ×2 (08:35→20:27)
[2024-08-29] MEDS: COREG 12.5 MG PO ×2 (08:36→20:27)
[2024-08-29] MEDS: PROTONIX 40 MG PO (08:37)
[2024-08-29] MEDS: LASIX 40 MG IV (08:37)
[2024-08-29] MEDS: NOVOLOG FLEXPEN-LOW RESISTANCE 2 UNITS SC ×2 (08:40→17:52)
[2024-08-29] MEDS: NOVOLOG FLEXPEN 8 UNITS SC (08:40)
[2024-08-29] MEDS: DESENEX/MITRAZOL/ZEASORB 1 APPLIC TOPICAL ×2 (08:42→20:36)
[2024-08-29] MEDS: ZINC OXIDE OINTMENT 1 APPLIC TOPICAL ×3 (08:42→21:03)
[2024-08-29 09:01] LABS: Glycohemoglobin (HgbA1c) 6.5 % (4.0-5.6)
--- NOTE | 2024-08-29 09:49 | W.PN.CD ---
Today's Communication / Plan
-
give IV lasix 80mg this pm and reassess response
continue statin
Impression / Plan
-
Cardiology : Romelia (2020)
Acute on chronic heart failure with preserved ejection fraction
- proBNP 10,200 on admission and patient appears volume overloaded.
- IV furosemide 40 once a day but doesn't seem to have a good response. I will given 80IV this afternoon and assess response. This requires intensive monitoring
- Daily weights, sodium and fluid restriction.
- Follow electrolytes and renal function.
- SGLT2 inhibitor covered by insurance but current creatinine clearance limits our ability to initiate this therapy. Can consider when creatinine clearance improves to greater than 25.
- Not a candidate for MRA due to renal function.
SOB: She is also quite rhoncherous and bronchospastic
?bronchitis, does she aspirate?
-sounds much better with steroids
-per primary team
Suspected paroxysmal atrial fibrillation'
- On carvedilol and apixaban.
- Remained unclear during the previous admission as well.
- In SR; monitor on tele.
Type II pulmonary hypertension
- Contributing to the dyspnea.
Chronic kidney disease, stage IIIb
-improving with diuresis
- Monitor renal function while diuresing.
Type II diabetes mellitus
Hyperlipidemia
Primary hypertension
Dementia
Chronic constipation
GERD
Ambulatory dysfunction--wheelchair bound
Obesity due to excess calorie intake
Subjective:
She has less 'rattling when she breaths', no appetite as nothing tastes good, no cp
Data:
TTE 07/04/2024 LVEF 55 to 60%, no significant valve disease. Elevated E to E prime.
Physical Exam
Vital Signs/Labs
Vital Signs
Temp Pulse Resp BP Pulse Ox
97.3 F 74 16 120/57 100
08/29/24 07:00 08/29/24 08:36 08/29/24 07:35 08/29/24 08:36 08/29/24 07:35
08/28/24 08/29/24 08/30/24
06:59 06:59 06:59
Actual Weight 164 lb 6 oz 166 lb 14.4 oz
08/27/24 03:49
08/29/24 05:55
Magnesium 1.9 mg/dl (1.6-2.3) 08/29/24 05:55
08/27/24
03:49
Dpw-U-Xeswknfnzdg Pept 45598
LAB Results
08/27/24
03:49
Troponin I 0.027
Physical Exam
Constitutional: No acute distress
Cardiovascular: Rhythm & rate is regular, JVD pressure is normal and Pedal edema present (chronic doughy in the feet)
Respiratory: Respiratory effort normal and Rhonchi Present (at the bases, improved from yesterday)
Neuro/Psych: AO x 3
Data Reviewed
-
Date of Service: August 29, 2024
Medical Decision Making: Review of Case with other Provider (Dr TOPETE GIVEN 80 IV LASIX THIS AFTERNOON)
EKG: Other (SB/SR/PACS)
[2024-08-29 11:00] VITALS: BP 143/63
[2024-08-29 11:07] LABS: COVID-19 Antigen Negative (Negative)
--- NOTE | 2024-08-29 11:08 | W.PN.HOSP.TC ---
Today's Communication/Plan
-
see A/P
Assessment / Plan
Assessment / Plan
HPI: 79-year-old female with history of CKD stage IV, CHF with preserved EF, last EF was 74% with diastolic dysfunction, morbid obesity, insulin-dependent diabetes, from alf; p/w shortness of breath, hypoxia and reported orthopnea. She
apparently was found to be 80% on room air at the alf. She is not on oxygen at baseline.
Exam showed trace bilateral lower extremity edema and diffuse wheezes bilaterally.
[place] [address] (higher than baseline which is between 3 to 5000). Her X-ray showed mild interstitial edema similar to prior.
She was placed on 2L NC with sat at 100%.
A/P:
# Acute on chronic diastolic CHF exacerbation
last echo from 06/2024: EF 55-60%. Mild left ventricular hypertrophy. No significant valvular disease.
cont IV lasix, increased to 80 mg daily (CABINET MOUNTER 20 mg daily)
follow creatinine, i/os and daily weights
incentive spirometry for atelectasis
Card on board
# Acute hypoxic resp insufficiency
Currently on 2L NC, wean to RA as tolerated. According to pt, she is not on home O2
# Wheezing - Suspect cardiac with some bronchospasm
No hx of COPD/Asthma/bronchiectasis. Never smoked.
diurese as above
Cont duonebs ATC and PRN
Started Decadron 4 mg IV BID, cont
SPL cleared for solid. Dysphagia ruled out.
# CKD stage 4
monitor creatinine diuresis as stated above
avoid nephrotoxins
renal dose medications
continue tamsulosin for reflux uropathy
continue bicarb orally for now
# IDDM
continue insulin regimen: adjust CABINET MOUNTER Lantus to 18 units HS (CABINET MOUNTER 14 units HS), adjust Aspart to 5 units AC (CABINET MOUNTER 3 units AC)
low dose sliding scale insulin achs
DVT PPX - apixaban 2.5 bid
Code status - Full Code
DW Card
DW RN
Anticipated Discharge: 24 - 48 hours
Subjective/Interval History
-
Date of Service: August 29, 2024
Objective Data
-
Labs:
Laboratory Results
08/29/24
05:55
Sodium 141
Potassium 4.2
Chloride 104
Carbon Dioxide 28
BUN 35 H
Creatinine 1.9 H
Glucose 223 H
Calcium 8.9
Vital Signs:
Vital Signs
Temp Pulse Resp BP Pulse Ox
36.3 C 74 16 120/57 100
08/29/24 07:00 08/29/24 08:36 08/29/24 07:35 08/29/24 08:36 08/29/24 07:35
I&O
08/28/24 08/29/24 08/30/24
06:59 06:59 06:59
Intake Total 320 / 320 840 / 840
Balance 320 / 320 840 / 840
Review of Systems
-
Unable to obtain full review of systems at this time due to: Other (poor historian)
Physical Exam
-
General: Well Developed, Well Nourished, Comfortable, Respiratory Distress (very mild), Conversant and Appears Chronically Ill
HEENT: Normocephalic, Atraumatic and Oxygen (2L NC)
Respiratory: Wheezes (improved ) and Non Labored Respirations; Negative Accessory Resp Muscle Use
Cardiac: Regular Rhythm and S1/S2
GI: Soft and Nontender
Musculoskeletal: Edema, Right Lower Extrem (improved) and Edema, Left Lower Extrem (improved)
Skin: Warm
Neuro: Awake
Psych: Calm
Data Reviewed
-
Labs: Labs Reviewed by me
--- NOTE | 2024-08-29 11:12 | CM ---
patient LTC resident [facility]
referral in [facility]
PLAN: Return to [facility] when stable
Report #: [phone]
Fax #: [phone]
[2024-08-29 12:13] LABS: Glucose - Point of Care 321 mg/dl (70-99)
--- NOTE | 2024-08-29 13:18 | RESPNOTE ---
Patient desaturated to 85 -86 % on room air at rest , she increased to 93% with 2 liters. Patient is currently wheelchair bound .
[2024-08-29] MEDS: NOVOLOG FLEXPEN-LOW RESISTANCE 4 UNITS SC (13:36)
[2024-08-29] MEDS: NOVOLOG FLEXPEN 5 UNITS SC ×2 (13:37→17:53)
[2024-08-29] MEDS: DECADRON 4 MG IV ×2 (13:41→23:04)
[2024-08-29 15:00] VITALS: BP 141/72
[2024-08-29] MEDS: LASIX 80 MG IV (15:45)
[2024-08-29 17:06] LABS: Glucose - Point of Care 247 mg/dl (70-99)
[2024-08-29 19:38] VITALS: BP 149/65
[2024-08-29] MEDS: MELATONIN 6 MG PO (21:03)
[2024-08-29] MEDS: SENOKOT 17.2 MG PO (21:03)
[2024-08-29] MEDS: LIPITOR 10 MG PO (21:03)
[2024-08-29 21:31] LABS: Glucose - Point of Care 267 mg/dl (70-99)
[2024-08-29] MEDS: LANTUS 0.18 UNITS SC (22:00)
[2024-08-29 23:51] VITALS: BP 158/72
[2024-08-30 03:35] VITALS: BP 158/59
[2024-08-30] MEDS: SYNTHROID 25 MCG PO (05:38)
[2024-08-30 06:00] VITALS: BMI 32.7
[2024-08-30 07:00] VITALS: BP 159/73
[2024-08-30 07:11] LABS: Blood Urea Nitrogen 47 mg/dl (7-17); Carbon Dioxide 32 mmol/L (22-30); Chloride 103 mmol/L (98-107); Estimated Creatinine Clearance 20 ml/min; Glucose 185 mg/dl (70-99); Potassium 4.2 mmol/L (3.5-5.1); Sodium 140 mmol/L (135-145); eGFR 24.79
[2024-08-30] MEDS: DUONEB 3 ML INH ×4 (07:11→19:25)
[2024-08-30 07:49] LABS: Glucose - Point of Care 204 mg/dl (70-99)
--- NOTE | 2024-08-30 08:36 | W.PN.CD ---
Addendum entered and electronically signed by Jose Antonio Catalan MD 08/30/24 15:01:
I saw and examined the patient.
The SALES ENABLEMENT CONSULTANT's note was reviewed and I agree with the note.
Comment:
79-year-old female with HFpEF, hypertension, diabetes, pulmonary hypertension, CKD who presents with HFpEF exacerbation. Symptoms improving. Weight is down to 161 pounds (164 pounds on admit). BUN/creatinine are rising. I suspect that she is
euvolemic.
Physical exam with RRR, no murmurs, trace lower extremity edema, rhonchorous lungs. She is a difficult volume exam due to body habitus.
Stop IV Lasix. Suspect she is dry. Transition to p.o. Lasix tomorrow. Continue SGLT2 inhibitor.
Original Note:
Today's Communication / Plan
-
Monitor renal function with diuresis. weight down. symptoms improving
Consider transition to oral lasix tomorrow.
Impression / Plan
-
Cardiology : Romelia (2019)
Acute on chronic heart failure with preserved ejection fraction
- proBNP 10,200 on admission pt noted to be volumed overloaded on admit.
- Lasix increased This requires intensive monitoring
- weight down about 2 kg in last 24 hours admit weight 78.5 kg, sodium and fluid restriction.
- on farxiga may need to reconsider given CrCl
- Not a candidate for MRA due to renal function.
SOB:
-Coarse breath sounds- speech cleared for solids, dysphagia ruled out per notes. received IV decadron
-con't diuresis
Suspected paroxysmal atrial fibrillation'
- On carvedilol and apixaban.
- Remained unclear during the previous admission as well.
- In SR; monitor on tele.
Type II pulmonary hypertension
- Contributing to the dyspnea.
Chronic kidney disease, stage IIIb
-creat on admit 1.8 now June admit 1.8-2.3 range
Type II diabetes mellitus
Hyperlipidemia
Primary hypertension
Dementia
Chronic constipation
GERD
Ambulatory dysfunction--wheelchair bound
Obesity due to excess calorie intake
Subjective:
She feels breathing is better . Denies CP, palps. Feels tired today.
Data:
TTE 07/04/2024 LVEF 55 to 60%, no significant valve disease. Elevated E to E prime.
Physical Exam
Vital Signs/Labs
Vital Signs
Temp Pulse Resp BP Pulse Ox
97.4 F 57 16 159/73 99
08/30/24 07:00 08/30/24 07:14 08/30/24 07:14 08/30/24 07:00 08/30/24 07:14
08/29/24 08/30/24 08/31/24
06:59 06:59 06:59
Actual Weight 75.705 kg 73.391 kg
08/27/24 03:49
08/30/24 06:21
Magnesium 2.0 mg/dl (1.6-2.3) 08/30/24 06:21
08/27/24
03:49
Iui-C-Lirfezmmnlo Pept [id number]
Physical Exam
Constitutional: No acute distress
Cardiovascular: Rhythm & rate is regular and Pedal edema is absent
Respiratory: Respiratory effort normal and Rhonchi Present (clears with cough)
GI: Soft and Non tender
Neuro/Psych: Alert
Data Reviewed
-
Date of Service: August 30, 2024
Labs: Labs Reviewed by me
[2024-08-30] MEDS: CYMBALTA DELAYED RELEASE 40 MG PO (08:58)
[2024-08-30] MEDS: ELIQUIS 2.5 MG PO ×2 (08:58→21:15)
[2024-08-30] MEDS: FLOMAX 0.4 MG PO (08:58)
[2024-08-30] MEDS: MUCINEX 600 MG PO ×2 (08:58→21:15)
[2024-08-30] MEDS: FARXIGA 10 MG PO (08:58)
[2024-08-30] MEDS: VITAMIN B-12 1000 MCG PO (08:58)
[2024-08-30] MEDS: FLORASTOR 250 MG PO (08:58)
[2024-08-30] MEDS: PROTONIX 40 MG PO (08:58)
[2024-08-30] MEDS: COREG 12.5 MG PO ×2 (08:58→21:15)
[2024-08-30] MEDS: FEOSOL 325 MG PO ×2 (08:58→21:15)
[2024-08-30] MEDS: ESTRACE 1 MG PO (08:58)
[2024-08-30] MEDS: LASIX 80 MG IV (08:58)
[2024-08-30] MEDS: SODIUM BICARBONATE 650 MG PO ×2 (08:58→21:15)
[2024-08-30] MEDS: DESENEX/MITRAZOL/ZEASORB 1 APPLIC TOPICAL ×2 (08:59→21:22)
[2024-08-30] MEDS: NOVOLOG FLEXPEN-LOW RESISTANCE 2 UNITS SC ×2 (08:59→12:54)
[2024-08-30] MEDS: MIRALAX PO (08:59)
[2024-08-30] MEDS: ZINC OXIDE OINTMENT 1 APPLIC TOPICAL ×3 (09:00→21:22)
[2024-08-30] MEDS: NOVOLOG FLEXPEN 5 UNITS SC ×3 (09:00→17:31)
[2024-08-30] MEDS: FLUSH (NSS) 2 FLUSH IV ×2 (09:04→12:55)
[2024-08-30 11:00] VITALS: BP 142/62
--- NOTE | 2024-08-30 11:02 | W.PN.HOSP.TC ---
Today's Communication/Plan
-
see A/P
Assessment / Plan
Assessment / Plan
HPI: 79-year-old female with history of CKD stage IV, CHF with preserved EF, last EF was 74% with diastolic dysfunction, morbid obesity, insulin-dependent diabetes, from residential; p/w shortness of breath, hypoxia and reported orthopnea. She
apparently was found to be 80% on room air at the residential. She is not on oxygen at baseline.
Exam showed trace bilateral lower extremity edema and diffuse wheezes bilaterally.
[place] [address] (higher than baseline which is between 3 to 5000). Her X-ray showed mild interstitial edema similar to prior.
She was placed on 2L NC with sat at 100%.
A/P:
# Acute on chronic diastolic CHF exacerbation
last echo from 06/2024: EF 55-60%. Mild left ventricular hypertrophy. No significant valvular disease.
cont IV lasix, increased to 80 mg daily (TELEVISION CABINET FINISHER 20 mg daily). Plan to transition to oral lasix tomorrow per card.
follow creatinine, i/os and daily weights
incentive spirometry for atelectasis
Card on board
# Acute hypoxic resp insufficiency
Currently on 2L NC, wean to RA as tolerated. According to pt, she is not on home O2
# Wheezing - Suspect cardiac with some bronchospasm
No hx of COPD/Asthma/bronchiectasis. Never smoked.
diurese as above
Cont duonebs ATC and PRN
Started Decadron 4 mg IV BID, cont
Wheezing has resolved
SPL cleared for solid. Dysphagia ruled out.
# CKD stage 4
monitor creatinine diuresis as stated above
avoid nephrotoxins
renal dose medications
continue tamsulosin for reflux uropathy
continue bicarb orally for now
# IDDM
continue insulin regimen: adjust TELEVISION CABINET FINISHER Lantus to 20 units HS (TELEVISION CABINET FINISHER 14 units HS), Cont Aspart to 5 units AC (TELEVISION CABINET FINISHER 3 units AC)
low dose sliding scale insulin achs
DVT PPX - apixaban 2.5 bid
Code status - Full Code
Dispo: Return to [facility] when stable
Anticipated Discharge: Within 24 hours
Subjective/Interval History
-
Date of Service: August 30, 2024
Objective Data
-
Labs:
Laboratory Results
08/30/24
06:21
Sodium 140
Potassium 4.2
Chloride 103
Carbon Dioxide 32 H
BUN 47 H
Creatinine 2.0 H
Glucose 185 H
Calcium 9.0
Vital Signs:
Vital Signs
Temp Pulse Resp BP Pulse Ox
36.3 C 58 16 159/73 99
08/30/24 07:00 08/30/24 08:58 08/30/24 07:14 08/30/24 08:58 08/30/24 07:14
I&O
08/29/24 08/30/24 08/31/24
06:59 06:59 06:59
Intake Total 840 / 840 1200 / 1200
Balance 840 / 840 1200 / 1200
Review of Systems
-
Unable to obtain full review of systems at this time due to: Other (poor historian)
Physical Exam
-
General: Well Developed, Well Nourished, Comfortable, Respiratory Distress (very mild), Conversant and Appears Chronically Ill
HEENT: Normocephalic, Atraumatic, Nodules and Oxygen (2L NC -> wean to RA )
Respiratory: Non Labored Respirations; Negative Wheezes (resolved ) or Accessory Resp Muscle Use
Cardiac: Regular Rhythm and S1/S2
GI: Soft and Nontender
Musculoskeletal: Edema, Right Lower Extrem (improved) and Edema, Left Lower Extrem (improved)
Skin: Warm
Neuro: Awake
Psych: Calm
Data Reviewed
-
Labs: Labs Reviewed by me
[2024-08-30 12:00] LABS: Glucose - Point of Care 211 mg/dl (70-99)
[2024-08-30] MEDS: DECADRON 4 MG IV (12:54)
[2024-08-30 15:00] VITALS: BP 149/65
[2024-08-30 17:01] LABS: Glucose - Point of Care 124 mg/dl (70-99)
[2024-08-30] MEDS: NOVOLOG FLEXPEN-LOW RESISTANCE SC (17:22)
[2024-08-30 19:00] VITALS: BP 155/99
--- NOTE | 2024-08-30 20:56 | PTCARENOTE ---
Oral care was not performed on patient because they stated that it was their preference to brush their teeth in the morning.
[2024-08-30] MEDS: LIPITOR 10 MG PO (21:19)
[2024-08-30] MEDS: SENOKOT 17.2 MG PO (21:19)
[2024-08-30] MEDS: LANTUS 0.2 UNITS SC (21:19)
[2024-08-30] MEDS: MELATONIN 6 MG PO (21:21)
[2024-08-30 21:41] LABS: Glucose - Point of Care 166 mg/dl (70-99)
[2024-08-30 23:00] VITALS: BP 125/72
[2024-08-31] MEDS: DECADRON 4 MG IV (00:28)
[2024-08-31 03:00] VITALS: BP 163/87
[2024-08-31 03:28] VITALS: BMI 33.0
[2024-08-31] MEDS: SYNTHROID 25 MCG PO (06:24)
[2024-08-31 06:48] LABS: Blood Urea Nitrogen 58 mg/dl (7-17); Calcium 8.9 mg/dl (8.4-10.2); Carbon Dioxide 33 mmol/L (22-30); Chloride 101 mmol/L (98-107); Estimated Creatinine Clearance 20 ml/min; Glucose 143 mg/dl (70-99); Sodium 140 mmol/L (135-145); eGFR 24.79
[2024-08-31 07:00] VITALS: BP 178/61
[2024-08-31] MEDS: DUONEB 3 ML INH (07:23)
[2024-08-31 07:54] LABS: Glucose - Point of Care 172 mg/dl (70-99)
[2024-08-31] MEDS: CYMBALTA DELAYED RELEASE 40 MG PO (08:45)
[2024-08-31] MEDS: ELIQUIS 2.5 MG PO ×2 (08:45→21:37)
[2024-08-31] MEDS: PROTONIX 40 MG PO (08:45)
[2024-08-31] MEDS: FARXIGA 10 MG PO (08:45)
[2024-08-31] MEDS: FEOSOL 325 MG PO ×2 (08:45→21:37)
[2024-08-31] MEDS: MUCINEX 600 MG PO ×2 (08:45→21:36)
[2024-08-31] MEDS: ESTRACE 1 MG PO (08:46)
[2024-08-31] MEDS: COREG 12.5 MG PO ×2 (08:46→21:37)
[2024-08-31] MEDS: FLORASTOR 250 MG PO (08:46)
[2024-08-31] MEDS: NOVOLOG FLEXPEN-LOW RESISTANCE 1 UNITS SC ×2 (08:46→16:59)
[2024-08-31] MEDS: FLOMAX 0.4 MG PO (08:46)
[2024-08-31] MEDS: SODIUM BICARBONATE 650 MG PO ×2 (08:46→21:37)
[2024-08-31] MEDS: VITAMIN B-12 1000 MCG PO (08:46)
[2024-08-31] MEDS: NOVOLOG FLEXPEN 5 UNITS SC ×3 (08:47→16:59)
[2024-08-31] MEDS: ZINC OXIDE OINTMENT 1 APPLIC TOPICAL ×3 (08:48→21:40)
[2024-08-31] MEDS: DESENEX/MITRAZOL/ZEASORB 1 APPLIC TOPICAL ×2 (08:48→21:38)
[2024-08-31] MEDS: MIRALAX PO (08:48)
[2024-08-31 11:00] VITALS: BP 173/99
--- NOTE | 2024-08-31 11:21 | W.PN.HOSP.TC ---
Today's Communication/Plan
-
see A/P
Assessment / Plan
Assessment / Plan
HPI: 79-year-old female with history of CKD stage IV, CHF with preserved EF, last EF was 74% with diastolic dysfunction, morbid obesity, insulin-dependent diabetes, from long-term; p/w shortness of breath, hypoxia and reported orthopnea. She
apparently was found to be 80% on room air at the long-term. She is not on oxygen at baseline.
Exam showed trace bilateral lower extremity edema and diffuse wheezes bilaterally.
[place] [address] (higher than baseline which is between 3 to 5000). Her X-ray showed mild interstitial edema similar to prior.
She was placed on 2L NC with sat at 100%.
A/P:
# Acute on chronic diastolic CHF exacerbation
last echo from 06/2024: EF 55-60%. Mild left ventricular hypertrophy. No significant valvular disease.
s/p IV lasix 80 mg daily, cont PO lasix 60 mg daily (LENS MOLDER 20 mg daily).
Follow creatinine, i/os and daily weights
incentive spirometry for atelectasis
Card on board
# Acute hypoxic resp insufficiency
Currently on 2L NC, wean to RA as tolerated. According to pt, she is not on home O2
# Wheezing - Suspect cardiac with some bronchospasm
No hx of COPD/Asthma/bronchiectasis. Never smoked.
diurese as above
Cont duonebs ATC and PRN
Decadron 4 mg IV BID -> prednisone 40 mg daily x5 days
Wheezing has resolved
SPL cleared for solid. Dysphagia ruled out.
# CKD stage 4
monitor creatinine diuresis as stated above
avoid nephrotoxins
renal dose medications
continue tamsulosin for reflux uropathy
continue bicarb orally for now
# IDDM
continue insulin regimen: adjust LENS MOLDER Lantus to 20 units HS (LENS MOLDER 14 units HS), Cont Aspart to 5 units AC (LENS MOLDER 3 units AC)
low dose sliding scale insulin achs
DVT PPX - apixaban 2.5 bid
Code status - Full Code
Dispo: Return to [facility]
Anticipated Discharge: Within 24 hours
Subjective/Interval History
-
Date of Service: August 31, 2024
Objective Data
-
Labs:
Laboratory Results
08/31/24
05:41
Sodium 140
Potassium 4.0
Chloride 101
Carbon Dioxide 33 H
BUN 58 H
Creatinine 2.0 H
Glucose 143 H
Calcium 8.9
Vital Signs:
Vital Signs
Temp Pulse Resp BP Pulse Ox
36.4 C 60 16 178/61 100
08/31/24 07:00 08/31/24 08:46 08/31/24 07:26 08/31/24 08:46 08/31/24 09:49
I&O
08/30/24 08/31/24 09/01/24
06:59 06:59 06:59
Intake Total 1200 / 1200 1320 / 1320
Balance 1200 / 1200 1320 / 1320
[2024-08-31] MEDS: LASIX 60 MG PO (11:47)
[2024-08-31 12:12] LABS: Glucose - Point of Care 111 mg/dl (70-99)
[2024-08-31] MEDS: NOVOLOG FLEXPEN-LOW RESISTANCE SC (12:25)
[2024-08-31 13:22] VITALS: BP 130/59
[2024-08-31 15:00] VITALS: BP 128/67
[2024-08-31 16:30] LABS: Glucose - Point of Care 168 mg/dl (70-99)
[2024-08-31 21:20] LABS: Glucose - Point of Care 141 mg/dl (70-99)
--- NOTE | 2024-08-31 21:29 | PTCARENOTE ---
Oral was not performed on patient because she stated that it was her preference to brush her teeth in the morning.
[2024-08-31] MEDS: SENOKOT 17.2 MG PO (21:36)
[2024-08-31] MEDS: LIPITOR 10 MG PO (21:37)
[2024-08-31] MEDS: MELATONIN 6 MG PO (21:40)
[2024-08-31] MEDS: LANTUS 0.2 UNITS SC (22:38)
[2024-08-31] MEDS: ANESTHETIC LOZENGE 1 LOZENGE PO (22:54)
[2024-08-31 23:00] VITALS: BP 154/66
[2024-09-01 04:29] VITALS: BMI 32.7
[2024-09-01] MEDS: SYNTHROID 25 MCG PO (06:14)
[2024-09-01 07:02] LABS: Blood Urea Nitrogen 62 mg/dl (7-17); Calcium 8.9 mg/dl (8.4-10.2); Carbon Dioxide 34 mmol/L (22-30); Chloride 101 mmol/L (98-107); Estimated Creatinine Clearance 19 ml/min; Glucose 43 mg/dl (70-99); Potassium 3.7 mmol/L (3.5-5.1); Sodium 141 mmol/L (135-145); eGFR 23.38
[2024-09-01 07:25] VITALS: BP 160/63
[2024-09-01 07:25] LABS: Glucose - Point of Care 76 mg/dl (70-99)
[2024-09-01] MEDS: NOVOLOG FLEXPEN-LOW RESISTANCE SC ×3 (07:45→16:48)
[2024-09-01] MEDS: NOVOLOG FLEXPEN SC (07:45)
[2024-09-01] MEDS: CYMBALTA DELAYED RELEASE 40 MG PO (07:56)
[2024-09-01] MEDS: TYLENOL 650 MG PO (07:56)
[2024-09-01] MEDS: SODIUM BICARBONATE 650 MG PO ×2 (07:56→20:06)
[2024-09-01] MEDS: DELTASONE 40 MG PO (07:57)
[2024-09-01] MEDS: MUCINEX 600 MG PO ×2 (07:57→20:05)
[2024-09-01] MEDS: FARXIGA PO (07:57)
[2024-09-01] MEDS: PROTONIX 40 MG PO (07:57)
[2024-09-01] MEDS: LASIX 60 MG PO (07:58)
[2024-09-01] MEDS: VITAMIN B-12 1000 MCG PO (07:59)
[2024-09-01] MEDS: ELIQUIS 2.5 MG PO ×2 (07:59→20:05)
[2024-09-01] MEDS: DESENEX/MITRAZOL/ZEASORB 1 APPLIC TOPICAL ×2 (07:59→20:07)
[2024-09-01] MEDS: ESTRACE 1 MG PO (07:59)
[2024-09-01] MEDS: FLOMAX 0.4 MG PO (07:59)
[2024-09-01] MEDS: MIRALAX 17 GRAMS PO (07:59)
[2024-09-01] MEDS: FLORASTOR 250 MG PO (07:59)
[2024-09-01] MEDS: FEOSOL 325 MG PO ×2 (07:59→20:05)
[2024-09-01] MEDS: COREG 12.5 MG PO ×2 (07:59→20:05)
[2024-09-01] MEDS: ZINC OXIDE OINTMENT 1 APPLIC TOPICAL ×3 (08:00→21:03)
[2024-09-01] MEDS: FARXIGA 10 MG PO (08:09)
[2024-09-01 08:11] LABS: Glucose - Point of Care 103 mg/dl (70-99)
[2024-09-01 10:52] LABS: Glucose - Point of Care 111 mg/dl (70-99)
--- NOTE | 2024-09-01 11:14 | CM ---
Patient resides at [facility]
for Cora liaison
spoke with patient son Neville kmainski
IMM reviewed. In chart
PLAN: PLAN: Return to [facility] when stable
Report #: [phone]
Fax #: [phone]
transportation forms on chart
[2024-09-01] MEDS: NOVOLOG FLEXPEN 5 UNITS SC (12:22)
--- NOTE | 2024-09-01 14:44 | W.PN.HOSP.TC ---
Today's Communication/Plan
-
Initially hyperglycemic later hypoglycemic with blood glucose at 43 on 09/01
Reduce Lantus back to preadmission dose of 14 units
Noted with recent initiation of SGLT 2 inhibitor.
Hold AC insulin
Continue basal bolus protocol monitoring for recurrent hypoglycemia
Assessment / Plan
Assessment / Plan
HPI: 79-year-old female with history of CKD stage IV, CHF with preserved EF, last EF was 74% with diastolic dysfunction, morbid obesity, insulin-dependent diabetes, from [facility]; p/w shortness of breath, hypoxia and reported orthopnea. She
apparently was found to be 80% on room air at the [facility]. She is not on oxygen at baseline.
Exam showed trace bilateral lower extremity edema and diffuse wheezes bilaterally.
[place] [address] (higher than baseline which is between 3 to 5000). Her X-ray showed mild interstitial edema similar to prior.
She was placed on 2L NC with sat at 100%.
A/P:
# Acute on chronic diastolic CHF exacerbation
last echo from 06/2024: EF 55-60%. Mild left ventricular hypertrophy. No significant valvular disease.
s/p IV lasix 80 mg daily, cont PO lasix 60 mg daily (REPAIR WEAVER 20 mg daily).
Follow creatinine, i/os and daily weights
incentive spirometry for atelectasis
Card on board
# Acute hypoxic resp insufficiency
Currently on 2L NC, wean to RA as tolerated. According to pt, she is not on home O2
# Wheezing - Suspect cardiac with some bronchospasm
No hx of COPD/Asthma/bronchiectasis. Never smoked.
diurese as above
Cont duonebs ATC and PRN
Decadron 4 mg IV BID -> prednisone 40 mg daily x5 days
Wheezing has resolved
SPL cleared for solid. Dysphagia ruled out.
# CKD stage 4
monitor creatinine diuresis as stated above
avoid nephrotoxins
renal dose medications
continue tamsulosin for reflux uropathy
continue bicarb orally for now
# IDDM
Initially hyperglycemic later hypoglycemic with blood glucose at 43 on 09/01
Reduce Lantus back to preadmission dose of 14 units
Noted with recent initiation of SGLT 2 inhibitor.
Hold AC insulin
Continue basal bolus protocol monitoring for recurrent hypoglycemia
DVT PPX - apixaban 2.5 bid
Code status - Full Code
Dispo: Return to [facility]
Anticipated Discharge: 24 - 48 hours
Subjective/Interval History
-
Date of Service: September 01, 2024
Objective Data
-
Labs:
Laboratory Results
09/01/24
06:06
Sodium 141
Potassium 3.7
Chloride 101
Carbon Dioxide 34 H
BUN 62 H
Creatinine 2.1 H
Glucose 43 L*
Calcium 8.9
Vital Signs:
Vital Signs
Temp Pulse Resp BP Pulse Ox
97.7 F 66 16 160/63 95
09/01/24 07:25 09/01/24 07:25 09/01/24 07:25 09/01/24 07:25 09/01/24 09:44
I&O
08/31/24 09/01/24 09/02/24
06:59 06:59 06:59
Intake Total 1320 / 1320 1260 / 1260
Balance 1320 / 1320 1260 / 1260
Physical Exam
-
General: Well Developed, Well Nourished, Comfortable, Respiratory Distress (very mild), Conversant and Appears Chronically Ill
HEENT: Normocephalic, Atraumatic, Nodules and Oxygen (2L NC -> wean to RA )
Respiratory: Non Labored Respirations; Negative Wheezes (resolved ) or Accessory Resp Muscle Use
Cardiac: Regular Rhythm and S1/S2
GI: Soft and Nontender
Musculoskeletal: Edema, Right Lower Extrem (improved) and Edema, Left Lower Extrem (improved)
Skin: Warm
Neuro: Awake
Psych: Calm
[2024-09-01 15:14] VITALS: BP 156/66
[2024-09-01 16:47] LABS: Glucose - Point of Care 122 mg/dl (70-99)
[2024-09-01 19:00] VITALS: BP 148/56
[2024-09-01] MEDS: SENOKOT 17.2 MG PO (21:03)
[2024-09-01] MEDS: LIPITOR 10 MG PO (21:03)
[2024-09-01] MEDS: MELATONIN 6 MG PO (21:03)
[2024-09-01 21:08] LABS: Glucose - Point of Care 285 mg/dl (70-99)
[2024-09-01] MEDS: LANTUS 0.14 UNITS SC (21:13)
[2024-09-01 23:00] VITALS: BP 148/58
[2024-09-02] MEDS: SYNTHROID 25 MCG PO (05:13)
[2024-09-02 05:53] VITALS: BMI 32.8
[2024-09-02 07:00] VITALS: BP 169/92
[2024-09-02 07:39] LABS: Glucose - Point of Care 220 mg/dl (70-99)
[2024-09-02 08:23] LABS: Blood Urea Nitrogen 68 mg/dl (7-17); Carbon Dioxide 33 mmol/L (22-30); Chloride 101 mmol/L (98-107); Estimated Creatinine Clearance 20 ml/min; Glucose 208 mg/dl (70-99); Potassium 4.9 mmol/L (3.5-5.1); Sodium 141 mmol/L (135-145); eGFR 24.79
[2024-09-02] MEDS: LASIX 60 MG PO (08:56)
[2024-09-02] MEDS: FARXIGA 10 MG PO (08:56)
[2024-09-02] MEDS: CYMBALTA DELAYED RELEASE 40 MG PO (08:56)
[2024-09-02] MEDS: PROTONIX 40 MG PO (08:56)
[2024-09-02] MEDS: ELIQUIS 2.5 MG PO (08:57)
[2024-09-02] MEDS: ESTRACE 1 MG PO (08:57)
[2024-09-02] MEDS: SODIUM BICARBONATE 650 MG PO (08:57)
[2024-09-02] MEDS: MUCINEX 600 MG PO (08:57)
[2024-09-02] MEDS: DELTASONE 40 MG PO (08:57)
[2024-09-02] MEDS: COREG 12.5 MG PO (08:57)
[2024-09-02] MEDS: FLOMAX 0.4 MG PO (08:57)
[2024-09-02] MEDS: FEOSOL 325 MG PO (08:57)
[2024-09-02] MEDS: VITAMIN B-12 1000 MCG PO (08:57)
[2024-09-02] MEDS: FLORASTOR 250 MG PO (08:58)
[2024-09-02] MEDS: MIRALAX 17 GRAMS PO (08:58)
[2024-09-02] MEDS: DESENEX/MITRAZOL/ZEASORB 1 APPLIC TOPICAL (09:00)
[2024-09-02] MEDS: ZINC OXIDE OINTMENT 1 APPLIC TOPICAL ×2 (09:00→17:14)
[2024-09-02] MEDS: NOVOLOG FLEXPEN-LOW RESISTANCE 2 UNITS SC ×2 (10:05→14:05)
[2024-09-02 11:44] LABS: Glucose - Point of Care 216 mg/dl (70-99)
--- NOTE | 2024-09-02 13:02 | CM ---
Addendum entered by Cathryn Nails 09/02/24 15:03:
tt from hospitalist stable for discharge
updated Cora liaison from [facility]
cont on 1L oxygen
IMM reviewed with kate Lozada & in chart
PLAN: Return to [facility] when stable
Report #: [phone]
Fax #: [phone]
transportation forms on chart
Original Note:
Patient seen at bedside
LTC resident at [facility]
updated careport
PLAN: Return to [facility] when stable
Report #: [phone]
Fax #: [phone]
transportation forms on chart
[2024-09-02 13:40] VITALS: BP 158/58
[2024-09-02] MEDS: REFRESH EYE DROPS (PF) 1 DROPS OPHTH (14:06)
[2024-09-02 15:00] VITALS: BP 162/96
--- NOTE | 2024-09-02 15:39 | W.DS.TRANS ---
DC Summary - Braiding Machine Tender
-
Discharge Instructions:
Sleep Apnea Risk High
Discharge Diagnosis/Procedures Acute on chronic diastolic heart failure
exacerbation;
Acute hypoxic respiratory insufficiency (placed
n 2L NC);
Insulin-dependent diabetes;
Wheezing, likely cardiac and bronchospastic in
combination
Diet As tolerated,Low Fat,Low Cholesterol,Low Sodium,
Restrict fluids to 48 oz
Activity As tolerated
Driving Restrictions No driving
Instructions:
Stand-Alone Forms:
Changes to Home Medications: Yes
Discharge Medications:
DC Medications w/original date entered in [facility]
apixaban 2.5 mg tablet (Eliquis) 2.5 mg PO BID Blood clot prevention/tx 11/23/20
cyanocobalamin (vitamin B-12) 1,000 mcg tablet 1,000 mcg PO DAILY Supplement 12/19/20
atorvastatin 10 mg tablet 10 mg PO HS High cholesterol 05/18/21
estradiol 1 mg tablet 1 mg PO DAILY Hormonal agent 05/18/21
fluticasone propionate 50 mcg/actuation nasal spray,suspension 1 spray intranasal BID Congestion 05/18/21
acetaminophen 325 mg tablet 650 mg (2 x 325 mg) PO Q4HPRN PRN mild pain/ fever>100.5F 05/27/21
bisacodyl 10 mg rectal suppository (OneLAX Bisacodyl) 10 mg MN DAILYPRN PRN if mom ineffective 05/27/21
pantoprazole 40 mg tablet,delayed release 40 mg PO DAILY Gastrointestinal Issue 01/18/23
polyethylene glycol 3350 17 gram oral powder packet 17 grams PO DAILY Constipation 01/18/23
sodium phosphates 19 gram-7 gram/118 mL enema (Fleet Enema) 118 ml MN DAILYPRN PRN if no bm aftr dulcolax 01/18/23
tamsulosin 0.4 mg capsule 0.4 mg PO DAILY Urinary Issue 01/18/23
Saccharomyces boulardii 250 mg capsule (Florastor) 250 mg PO DAILY Gastrointestinal Issue 07/04/24
ferrous sulfate 325 mg (65 mg iron) tablet 325 mg PO BID Supplement 07/04/24
insulin aspart U-100 100 unit/mL subcutaneous solution 0 sliding scale dose SC AC Diabetes 07/04/24
insulin glargine 100 unit/mL subcutaneous solution 14 unit SC HS Diabetes 07/04/24
ipratropium 0.5 mg-albuterol 3 mg (2.5 mg base)/3 mL nebulization soln 3 ml inhalation R Q6HPRN PRN sob 07/04/24
levothyroxine 25 mcg tablet 25 mcg PO DAILY Thyroid 07/04/24
loperamide 2 mg tablet (Imodium A-D) 2 mg PO Q6HPRN PRN diarrhea 07/04/24
magnesium hydroxide 400 mg/5 mL oral suspension (Milk of Magnesia) 2,400 mg PO DAILYPRN PRN if no bm by 3rd day 07/04/24
melatonin 3 mg tablet 6 mg PO HS Sleep 07/04/24
sennosides 8.6 mg tablet (senna) 17.2 mg PO HS Constipation 07/04/24
carvedilol 12.5 mg tablet 12.5 mg PO BID 30 days #60 tabs 07/09/24
ammonium lactate 12 % lotion (AmLactin) 1 applic topical DAILY bue/ble 08/27/24
duloxetine 40 mg capsule,delayed release sprinkle 40 mg PO DAILY Mental Health/Anxiety 08/27/24
hydralazine 10 mg tablet 10 mg PO Q6HPRN PRN sbp > 150 08/27/24
magnesium oxide 500 mg PO FR Supplement 08/27/24
menthol 0.44 %-zinc oxide 20.6 % topical ointment (Moisture Barrier Ointment) 1 applic topical TID sacrum/groin 08/27/24
menthol 3.2 mg lozenges 3.2 mg mucous membrane [id number] PRN sore throat 08/27/24
sodium bicarbonate 650 mg tablet 650 mg PO BID 08/27/24
dapagliflozin propanediol 10 mg tablet 10 mg PO DAILY #30 tabs 09/02/24
furosemide 20 mg tablet 60 mg (3 x 20 mg) PO DAILY #90 tabs 09/02/24
Home Medication Changes
Lasix increased to 60 mg a day
Farxiga initiated
Pending Results: No
--- NOTE | 2024-09-03 10:22 | W.HF.CON ---
Heart Failure
- LV Function
Left ventricular function study result: LV Ejection fraction >/= 50% (ECHO 07/04/24)
Ejection Fraction Percentage: 55-60
- ARNI
Patient already on ARNI: No
Heart Failure ARNI Not Indicated: LV Ejection Fraction >/= 40%
- ACEI/ARB
Patient already on ACEI/ARB: No
Heart Failure ACEI/ARB Not Indicated: LV Ejection Fraction > 40%
- Beta Jenn
Patient already on Evidence Based Beta Jenn: Yes
- Mineralocorticord Receptor Antagonist
Patient already on MRA: No
Heart Failure MRA Not Indicated: LV Ejection Fraction > 40%
- SGLT-2 Inhibitor
Patient already on SGLT-2 Inhibitor: Yes
- Afib Anticoagulation
Patient already on Anticoagulation for Afib: Yes
- NYHA CHF Classification
NYHA CHF Classification Level: Class III - Symptoms w/ min exertion, interferes w/ nml daily activity (pulmonary HTN)
- ACC/AHA Stage
ACC/AHA Stage: Stage C: Symptomatic Heart Failure
== END 2024-09-02 17:59 | DRG 291 ==
LOC: 3 WEST ACU 05:45
PROVIDERS: Internal Medicine; ADMITTING PHYSICIAN Internal Medicine; ATTENDING PHYSICIAN Internal Medicine; CONSULT PHYSICIAN Student in an Organized Health Care Education/Training Program; EMERGENCY PHYSICIAN Student in an Organized Health Care Education/Training Program
DX: I13.0 Hypertensive heart and chronic kidney disease with heart failure and stage 1 through stage 4 chronic kidney disease, or unspecified chronic kidney disease (principal); I50.33 Acute on chronic diastolic (congestive) heart failure; J96.01 Acute respiratory failure with hypoxia; F03.94 Unspecified dementia, unspecified severity, with anxiety; N18.4 Chronic kidney disease, stage 4 (severe); J98.11 Atelectasis; E11.22 Type 2 diabetes mellitus with diabetic chronic kidney disease; N13.9 Obstructive and reflux uropathy, unspecified; I48.0 Paroxysmal atrial fibrillation; Z79.01 Long term (current) use of anticoagulants; E78.00 Pure hypercholesterolemia, unspecified; K59.09 Other constipation; K21.9 Gastro-esophageal reflux disease without esophagitis; E66.01 Morbid (severe) obesity due to excess calories; R26.2 Difficulty in walking, not elsewhere classified; L89.891 Pressure ulcer of other site, stage 1; I27.20 Pulmonary hypertension, unspecified; Z68.32 Body mass index [BMI] 32.0-32.9, adult; Z11.52 Encounter for screening for COVID-19; Z79.4 Long term (current) use of insulin; Z79.899 Other long term (current) drug therapy
CPT/HCPCS: 71046; 80048; 80053; 82805; 82962; 83036; 83735; 83880; 84484; 85025; 87502; 87811; 92526; 92610; 93005; 94640; 99285

== ENCOUNTER 2024-11-26 06:58 | Inpatient (IN) | payer MEDICARE, OTHER, SELFPAY ==
[2024-11-26] VITALS (71 sets, daily range): BP systolic 50–165; BP diastolic 20–111; PULSE 71; BMI 34.0; BMI 29.9
[2024-11-26 04:04] LABS: Hematocrit 31.5 % (37.0-47.0); Hemoglobin 10.6 g/dL (12.0-16.0); Mean Corp Hgb Conc. 33.7 g/dL (33.0-37.0); Mean Corpuscular Volume 94.3 fL (81.0-99.0); Nucleated Red Blood Cells % 0.3 %; Platelet Count 251 10^3/uL (130-400); Red Cell Dist. Width 14.4 % (11.5-14.5)
[2024-11-26 04:34] LABS: Blood Urea Nitrogen 102 mg/dl (7-17); Calcium 8.1 mg/dl (8.4-10.2); Carbon Dioxide 8 mmol/L (22-30); Chloride 112 mmol/L (98-107); Glucose 61 mg/dl (70-99); Sodium 136 mmol/L (135-145); eGFR 5.33
[2024-11-26 04:43] LABS: Troponin I 0.046 ng/ml
--- NOTE | 2024-11-26 05:04 | VATNOTE ---
UNABLE TO ESTABLISH ADDITIONAL IV ACCESS. PT VERY HYPOTENSIVE. RECOMMENDED TO MD TO INSERT A CVAD A ML WILL NOT MEET THE THE PATIENTS CURRENT IV THERAPY NEEDS WITH ANTICIPATED PRESSOR SUPPORT PENDING.
[2024-11-26] MEDS: LEVOPHED 250 IV ×2 (05:18→10:31)
--- NOTE | 2024-11-26 05:18 | ED.GENMED ---
History of Present Illness
General
Chief Complaint: Breathing Problem
Time Seen by Provider: 11/26/24 04:01
History of Present Illness
History of Present Illness:
Note:
CHIEF COMPLAINT(S)
The patient, an 79-year-old female, presents with shortness of breath and concerns about fluctuating blood pressure. She is a 4-year resident of [facility]. EMS was called out for hypertension. When EMS arrived, patient was hypotensive.
HISTORY OF PRESENT ILLNESS
The patient reports recent episodes of shortness of breath. There is no presence of fever. During the examination, it was noted that her hands were cold, and lung auscultation revealed minimal findings. Blood pressure readings have been notably
erratic, moving from 76/44 mmHg and 60s/40s range to a more recent reading of 101/unknown mmHg. She mentions attempts to track blood pressure at different sites, including an attempt of 102/71 mmHg, suggesting inconsistency and difficulty in
measurement. The patient is on home oxygen therapy but was not on oxygen at the time of the examination. She denies experiencing chest pain but feels a sensation of breathlessness.
REVIEW OF SYSTEMS
- Respiratory: Reports shortness of breath.
- Cardiovascular: Fluctuating blood pressure noted.
PHYSICAL EXAM
General: Alert, moderate acute distress.
Skin: Cold hands noted.
Head: Normocephalic, atraumatic.
Neck: Supple, trachea midline.
Eye, ears, nose, mouth, and throat: Oral mucosa moist.
Cardiovascular: Normal peripheral perfusion, No edema.
Respiratory: Respirations are labored; minor findings on lung auscultation.
Gastrointestinal: Abdomen nondistended, Hematuria
Back: Normal range of motion, Normal alignment.
Musculoskeletal: Normal range of motion, normal strength. edema
Neurological: Confused, No focal neurological deficit observed.
Psychiatric: Minimal Interaction
PROBLEM LIST
Acute:
1. Shortness of breath
2. Fluctuating blood pressure
PLAN
1. Evaluate the need for adjustments in home oxygen therapy to manage shortness of breath.
2. Continuous monitoring of blood pressure to determine any patterns and guide potential treatment changes.
DIFFERENTIAL DIAGNOSIS
The Differential Diagnosis includes, in no particular order and is not limited to:
1. Congestive heart failure
2. Chronic obstructive pulmonary disease exacerbation
4. Atypical pneumonia
5. Acute myocardial infarction
6. Hypertensive crisis
7. Arrhythmia
8. Anxiety-related hyperventilation syndrome
9. Pulmonary hypertension
10. Anemia
CARE-UPDATE
11/26/24 - 05:16
worsening of chronic kidney disease, now stage four, likely contributing to increasing weakness and lethargy. Coordination with nephrology is ongoing for potential adjustment of medications due to renal function decline. Monitor closely for signs
of acute decompensation, particularly related to heart failure and anemia. Adjustments in management may be required based on further evaluations.
CARE-UPDATE
11/26/24 - 05:29
Spoke with son Neville Huitron who stated that his mom is a DNR. This conversation was witnessed and confirmed by nursing. I discussed this with patient and she, in the presence of nursing stated that she is a DNR.
Disposition:
SUMMARY OF ENCOUNTER
The patient, an 79-year-old female, was brought to the emergency department by EMS for evaluation of hypotension and difficulty breathing. She presented with severe hypotension and signs of central cyanosis. The patient was started on intravenous
laminephrine and dobutamine to manage her condition. Additionally, D5 normal saline was administered to address hypoglycemia. The patients condition remained critical.
MANAGEMENT OF THE PATIENTS CARE WAS DISCUSSED WITH
I spoke with her son, Neville, who advised that the patient is now designated as Do Not Resuscitate (DNR).
MEDICAL DECISION MAKING
-Complexity of Data Reviewed: Chronic conditions affecting care [history of fluctuating blood pressure and respiratory issues]. Differential diagnosis includes congestive heart failure, chronic obstructive pulmonary disease exacerbation, pulmonary
embolism, atypical pneumonia, acute myocardial infarction, hypertensive crisis, arrhythmia, anxiety-related hyperventilation syndrome, pulmonary hypertension, anemia.
-Data:
Category 1: The patient was administered D5 normal saline and started on laminephrine and dobutamine.
Category 3: Discussion of management with patient�s son, Neville, regarding the patients DNR status.
-Risk: The patients critical condition necessitated intravenous medication management and close monitoring. Her DNR status required sensitive and appropriate end-of-life decision-making.
DIAGNOSIS
- Hypotension, unspecified (ICD-10 R03.1)
- Acute respiratory distress (ICD-10 J80)
- Hypoglycemia, unspecified (ICD-10 E16.2)
Past History
Past History
ED Past Medical History: CAD, CHF, GERD, HTN, Hypercholesterolemia, NIDDM, Psychiatric, Other (Anemia) and Other
ED Past Surgical History: Gynecological (Hysterectomy) and Orthopedic (Bilateral hip replacements, bilateral knee replacements, rotator cuff repair)
Social History
Tobacco: Non-smoker
Alcohol: None
Personal:
Living: alf ([facility])
Employment: Retired
Family History
Family History: Other (Noncontributory)
Phy Exam
Physical Exam
Physical Exam:
.
Scores
Heart Failure Risk
Heart Failure Risk Score: Yes
History of Stroke or TIA: No
History of intubation for respiratory distress: No
Heart rate on ED arrival >/= 110: Yes
SaO2 <90% on arrival on room air: Yes
HR >/=110 during 3min walk test (or too ill to perform test): Yes
ECG has acute ischemic changes: No
Urea >/=12mmol/L (BUN 33.6mg/dL): Yes
Serum CO2>/=35mmol/L: No
Troponin I or T elevated to TX Level (0.4mg/dL): No
NT-proBNP >/=5,000ng/L (5,000pg/ml): Yes
HF Risk Score: 5
Admission Status: VERY HIGH RISK 39.8% Consider admission to hospital
Course
Orders/Labs/Results
Orders:
Orders
11/26/24 03:47
EKG [Electrocardiogram (*1)] Urgent
Reason for Study: Shortness of Breath
EKG- Treatment ONCE
11/26/24 03:56
Electrocardiogram (*1) Urgent
Reason for Study: Other
Other Reason for Exam: Respiratory Distress
Cardiac Monitoring- Treatment ONCE
EKG- Treatment ONCE
CR Chest - 2 Views Urgent
Comment:
Reason For Exam: respiratory distress
Pulse Ox/cont/shift [RESP] Urgent
Quantity: 1
Special Instructions: continuous pulse ox
11/26/24 03:58
Basic Metabolic Panel Urgent
Comment: NO K
Complete Blood Count/With Diff Urgent
NT-proBNP Urgent
Comment: ADDED
Troponin I Urgent
11/26/24 05:15
NORepinephrine 4 MG/250 ML [Levophed] 4 mg in 250 ml IV PER PROTOCOL
Initial dose in mcg/min, then titrate:: 5
Titrate to keep:: MAP > 65 mmHg
Titrate by mcg/min:: 1-2 mcg/min
Frequency of titrations (minutes):: 5
Maximum dose in ICU in mcg/min:: 30
Maximum dose in IMU in mcg/min:: 8
Maximum dose in IVU in mcg/min:: 4
Begin to taper infusion when:: Remained at goal for 4hrs
Taper by mcg/min:: 1-2 mcg/min
Frequency of taper (minutes) if patient maintains goal:: 30
Taper to off?: Yes
If infusion off & no longer maintaining goal:: Contact Provider
11/26/24 05:40
Complete Blood Count/With Diff Urgent
Comprehensive Metabolic Panel Urgent
Prothrombin Time Urgent
Blood Culture Q30M
YESSENIA Source: Blood/Venous
Specimen Description:
Blood Culture Q30M
YESSENIA Source: Blood/Venous
Specimen Description:
11/26/24 05:42
Lactic Acid Urgent
Urinalysis Reflex To Culture Urgent
Date Specimen was Collected: 11/26/24
Time Specimen was Collected: 05:41
Urine Microscopic Reflex Cult Urgent
Urine Culture Urgent
YESSENIA Source: U
Specimen Description:
Date Specimen was Collected: 11/26/24
Time Specimen was Collected: 05:41
11/26/24 05:45
DOBUTamine 500 MG/D5W 250 ML [Dobutrex 500 mg] 500 mg in 250 ml IV PER PROTOCOL
Initial dose in mcg/kg/min, then titrate:: 2.5
Titrate to keep:: MAP > 65 mmHg
Titrate by mcg/kg/min:: 0.5 mcg/kg/minute
Frequency of titrations (minutes):: 15
Maximum dose in mcg/kg/min:: 20
Begin to taper infusion when:: Remained at goal for 4hrs
Taper by mcg/kg/min:: 1 mcg/kg/min
Frequency of taper (minutes) if patient maintains goal:: 30
Taper to off?: Yes
If infusion off & no longer maintaining goal:: Contact Provider
11/26/24 05:47
CT Abd/pel Without Iv Or Oral Urgent
Comment:
Reason For Exam: Abd Pain, Hypotension
11/26/24 06:00
0.9% Sodium Chloride 1000 ml [Nss] 1,000 ml IV BOLUS
11/26/24 06:14
Admit/Transfer Patient As Directed
Co-Sign Provider:
Level of Care: Inpatient admission
Assign to:: ICU
Physician / Group: Chavo
Diagnosis: Shock, Anemia, XANDER
Reason for Hospitalization: Shock, Anemia, XANDER
Expected length of stay greater than two midnights?: Yes
ELOS- Estimated Length of Stay in days: 5
I certify the patient meets the requirements for IP care: Yes
11/26/24 06:15
PRN Pain Medication Management As Directed
May give lesser potent ordered pain med per pt: Yes
preference::
Protocol:: Medication orders for pain may be administered in a
manner that supports deferring to patient preference
when the pt is:
- Requesting an ordered lesser potent pain medication.
Least to most potent pain medications are defined
as: acetaminophen < NSAID < tramadol < opioids
(morphine, oxycodone, hydromorphone).
- Requesting a lesser dose of the same medication IF
ORDERED.
- Requesting a less intrusive route of administration
if both routes are prescribed by the provider (PO <
IV).
11/26/24 06:20
Code Status As Directed
Resuscitation Status: Do not resuscitate
Based on pt advanced directive or healthcare POA form: Yes
11/26/24 06:22
DNR Bracelet Application ONCE
11/26/24 06:33
0.9% Sodium Chloride 1000 ml [Nss] 1,000 ml IV BOLUS
Abnormal Lab Results
11/26/24 11/26/24 11/26/24
03:58 05:40 05:42
RBC 3.34 L 10^6/uL 2.78 L 10^6/uL
(4.20-5.40) (4.20-5.40)
Hgb 10.6 L g/dL 8.6 L g/dL
(12.0-16.0) (12.0-16.0)
Hct 31.5 L % 26.9 L %
(37.0-47.0) (37.0-47.0)
MCH 31.7 H pg
(27.0-31.0)
MCHC 32.0 L g/dL
(33.0-37.0)
RDW 14.9 H %
(11.5-14.5)
MPV 11.1 H fL 10.9 H fL
(7.4-10.4) (7.4-10.4)
Absolute Lymphs (auto) 0.9 L 10^3/uL
(1.2-3.4)
Neutrophils % 78.9 H %
(42.2-75.2)
Lymphocytes % 19.5 L % 12.5 L %
(20.5-51.1) (20.5-51.1)
PT 18.6 H Sec
(11.4-14.6)
Chloride 112 H mmol/L 117 H mmol/L
(98-107) (98-107)
Carbon Dioxide 8 L* mmol/L 7 L* mmol/L
(22-30) (22-30)
BUN 102 H* mg/dl 92 H mg/dl
(7-17) (7-17)
Creatinine 7.2 H* mg/dL 6.4 H* mg/dL
(0.6-1.0) (0.6-1.0)
Glucose 61 L mg/dl 53 L* mg/dl
(70-99) (70-99)
Lactic Acid 0.5 L mmol/L
(0.7-2.0)
Calcium 8.1 L mg/dl 7.2 L mg/dl
(8.4-10.2) (8.4-10.2)
AST 12 L U/L
(14-36)
Troponin I 0.046 H* ng/ml
Total Protein 5.7 L g/dl
(6.3-8.2)
Albumin 2.3 L g/dl
(3.5-5.0)
Ur Occult Blood Reflex 4+ A
(Negative)
Leukocyte Esterase Rfl 3+ A
(Negative)
Urine Albumin (Reflex) 4+ A
(Neg - Trace)
11/26/24 05:40
11/26/24 05:40
Vital Signs
Initial and Last Documented VS:
Initial Vital Signs
Temp Pulse Resp
97.7 F 69 20
11/26/24 03:40 11/26/24 03:40 11/26/24 03:40
Last Documented Vital Signs
Temp Pulse Resp BP Pulse Ox
97.7 F 83 19 99/49 99
11/26/24 03:40 11/26/24 06:25 11/26/24 06:25 11/26/24 06:25 11/26/24 06:25
*Pulse Oximetry
SaO2: 100
Patient hypoxic: yes (On room air patient hypoxic)
*Critical Care Note
Total Time (30-74mins, 75-104mins- exclusive of procedures): 55 (Critical care statement: A total of 55 minutes of critical care time was provided for this patient. This time is separate from time utilized to perform the aforementioned documented
procedures. Aggregate critical care time includes only time during which I was engaged in work directl)
ED Attending Note
-
Portions of this chart may have been created with voice recognition software.� Occasional wrong word or��sound alike� substitutions may have occurred due to the inherent limitations of voice recognition software.
Discharge Plan
Departure
Patient Disposition: Admit
Date of Disposition: 11/26/24
Time of Disposition: 05:50
Admit to: ICU
Presentation/result/management discussed w/ accepting MD/DO: Hospitalist
Patient with high blood pressure during this ER visit?: Yes
Condition: Fair
Discharge Problem:
Sepsis, Hematuria, Acute hypotension, Hypoglycemia, CKD (chronic kidney disease) stage 4, GFR 15-29 ml/min, Anemia, Pressure ulcer of toe of right foot, stage 1
Prescriptions:
No Action
Eliquis 2.5 MG tablet
2.5 mg PO BID
cyanocobalamin (vitamin B-12) 1,000 MCG tablet
1,000 mcg PO DAILY
atorvastatin 10 MG tablet
10 mg PO HS
estradiol 1 MG tablet
1 mg PO DAILY
fluticasone propionate 1 SPRAY spray,suspension
1 spray intranasal BID
acetaminophen 325 MG tablet
650 mg PO Q4HPRN PRN (Reason: mild pain/ fever>100.5F) 0RF
bisacodyl [OneLAX Bisacodyl] 10 MG suppository
10 mg CO DAILYPRN PRN (Reason: if mom ineffective) 0RF
Fleet Enema 19-7 gram/118 mL Enema
118 ml CO DAILYPRN PRN (Reason: if no bm aftr dulcolax)
polyethylene glycol 3350 17 GRAMS powder in packet
17 grams PO DAILY
tamsulosin 0.4 MG capsule
0.4 mg PO DAILY
pantoprazole 40 MG tablet,delayed release (DR/EC)
40 mg PO DAILY
sennosides [senna] 8.6 mg Tablet
17.2 mg PO HS
insulin glargine 100 unit/mL Solution
14 unit SC HS
melatonin 3 mg Tablet
6 mg PO HS
levothyroxine 25 mcg Tablet
25 mcg PO DAILY
insulin aspart U-100 100 unit/mL Solution
0 sliding scale dose SC AC
Rx Instructions:
151-200=3units, 201-250=5units
ferrous sulfate 325 mg (65 mg iron) Tablet
325 mg PO BID
ipratropium-albuterol 0.5 mg-3 mg(2.5 mg base)/3 mL Solution For Nebulization
3 ml INHALATION R Q6HPRN PRN (Reason: sob)
magnesium hydroxide [Milk of Magnesia] 400 mg/5 mL Suspension
2,400 mg PO DAILYPRN PRN (Reason: if no bm by 3rd day)
Saccharomyces boulardii [Florastor] 250 mg Capsule
250 mg PO DAILY
carvedilol 12.5 mg Tablet
12.5 mg PO BID 30 Days Qty: 60 0RF
hydralazine 10 mg Tablet
10 mg PO Q6HPRN PRN (Reason: sbp > 150)
ammonium lactate [AmLactin] 12 % Lotion
1 applic TOPICAL DAILY
magnesium oxide 500 mg magnesium Tablet
500 mg PO FR
menthol-zinc oxide [Moisture Barrier Ointment] 0.44-20.6 % Ointment
1 applic TOPICAL TID
duloxetine 40 mg Capsule, Delayed Rel Sprinkle
40 mg PO DAILY
furosemide 20 mg Tablet
60 mg PO DAILY Qty: 90 0RF
dapagliflozin propanediol 10 mg Tablet
10 mg PO DAILY Qty: 30 0RF
guaifenesin 100 mg/5 mL Liquid
250 mg PO Q6H PRN (Reason: Cough)
docusate sodium [Colace] 100 mg Capsule
100 mg PO DAILY
Referrals:
Maged Mcintyre MD [Family Provider]
Interventions
Interventions:
*Risk Screen - Suicide Last Done: 11/26/24 03:40
*General Assessment Last Done: 11/26/24 03:40
*Neglect/Abuse Screening Last Done: 11/26/24 03:40
*ED- Fall Risk Assessment Last Done: 11/26/24 03:40
*ED COVID-19 Vaccine History Last Done: 11/26/24 03:40
ED- Cardiac Assessment Last Done: 11/26/24 04:14
ED- Pulmonary Assessment Last Done: 11/26/24 04:14
Discharge Date and Time
Print Language: ARMENIAN
[2024-11-26 05:58] LABS: Hematocrit 26.9 % (37.0-47.0); Hemoglobin 8.6 g/dL (12.0-16.0); Mean Corp Hgb Conc. 32.0 g/dL (33.0-37.0); Mean Corpuscular Volume 96.8 fL (81.0-99.0); Nucleated Red Blood Cells % 0 %; Platelet Count 235 10^3/uL (130-400); Red Cell Dist. Width 14.9 % (11.5-14.5)
[2024-11-26] MEDS: NSS 1000 IV ×2 (06:01→09:58)
[2024-11-26 06:06] LABS: Urine Character Bloody (Clear)
[2024-11-26 06:11] LABS: INR 1.53; PT 18.6 Sec (11.4-14.6)
[2024-11-26] MEDS: DOBUTREX 500 MG 250 IV (06:18)
[2024-11-26 06:27] LABS: ALT (SGPT) < 10 U/L (0-35); AST (SGOT) 12 U/L (14-36); Albumin 2.3 g/dl (3.5-5.0); Alkaline Phosphatase 63 U/L (38-126); Blood Urea Nitrogen 92 mg/dl (7-17); Calcium 7.2 mg/dl (8.4-10.2); Carbon Dioxide 7 mmol/L (22-30); Chloride 117 mmol/L (98-107); Estimated Creatinine Clearance 7 ml/min; Glucose 53 mg/dl (70-99); Potassium 4.1 mmol/L (3.5-5.1); Sodium 137 mmol/L (135-145); Total Protein 5.7 g/dl (6.3-8.2); eGFR 6.14
--- NOTE | 2024-11-26 06:29 | HPS.HSE ---
Family Physician
-
Family Physician: Maged Mcintyre
Chief Complaint
-
Weakness
History of Present Illness
Patient is an 79y F with PMH significant for hypertension, advanced CKD and CHF who presents to ED from local [place]. Report from [place] indicated that patient was sent for elevated BP and SOB. Upon arrival to the ED, patient was noted to be lethargic
and markedly hypotensive. She was not hypoxemic on room air - despite chronically being on 2 lpm of supplemental O2. L femoral catheter was placed and patient started on pressor support. Patient became gradually more responsive. At the time of my
examination she was awake but sluggish. She denies any pain. She denies any SOB. No recent cough, fevers / chills, etc.
Patient states that she has had some bleeding from the vaginal area recently - unsure how long.
Mejia was placed in the ED for return of cloudy, blood urine.
Medical History
Past Medical History
Past Medical History: Reports Other
Additional Past Medical History:
Hypertension
DM-II
CKD IV
HFpEF
GERD
History of DVT
Past Surgical History: Reports Other
Additional Past Surgical History:
Hysterectomy
Bilateral JADA
Bilateral TKA
Rotator Cuff Repair
IVC Filter Placement
Social History
Unable to obtain full social history at this time due to: Dementia
Family History
Family History: Unable to Obtain
Allergies / Home Medications
Allergies reflects when Allergies were last updated in [facility].
Home Medications with original date entered in [facility]
Allergy/Medication List:
Allergies
Allergy/AdvReac Type Severity Reaction Status Date / Time
daptomycin Allergy CK>5000 Verified 07/03/24 22:45
doxylamine Allergy leg Verified 07/03/24 22:45
weakness
lactose Allergy INTOLERANT Verified 07/03/24 22:45
morphine Allergy Nausea / Verified 07/03/24 22:45
Vomiting
Penicillins Allergy Swelling/ch Verified 07/03/24 22:45
ildhood
Home Medications
apixaban 2.5 mg tablet (Eliquis) 2.5 mg PO BID Blood clot prevention/tx 11/23/20
cyanocobalamin (vitamin B-12) 1,000 mcg tablet 1,000 mcg PO DAILY Supplement 12/19/20
atorvastatin 10 mg tablet 10 mg PO HS High cholesterol 05/18/21
estradiol 1 mg tablet 1 mg PO DAILY Hormonal agent 05/18/21
fluticasone propionate 50 mcg/actuation nasal spray,suspension 1 spray intranasal BID Congestion 05/18/21
acetaminophen 325 mg tablet 650 mg (2 x 325 mg) PO Q4HPRN PRN mild pain/ fever>100.5F 05/27/21
bisacodyl 10 mg rectal suppository (OneLAX Bisacodyl) 10 mg NH DAILYPRN PRN if mom ineffective 05/27/21
pantoprazole 40 mg tablet,delayed release 40 mg PO DAILY Gastrointestinal Issue 01/18/23
polyethylene glycol 3350 17 gram oral powder packet 17 grams PO DAILY Constipation 01/18/23
sodium phosphates 19 gram-7 gram/118 mL enema (Fleet Enema) 118 ml NH DAILYPRN PRN if no bm aftr dulcolax 01/18/23
tamsulosin 0.4 mg capsule 0.4 mg PO DAILY Urinary Issue 01/18/23
Saccharomyces boulardii 250 mg capsule (Florastor) 250 mg PO DAILY Gastrointestinal Issue 07/04/24
ferrous sulfate 325 mg (65 mg iron) tablet 325 mg PO BID Supplement 07/04/24
insulin aspart U-100 100 unit/mL subcutaneous solution 0 sliding scale dose SC AC Diabetes 07/04/24
insulin glargine 100 unit/mL subcutaneous solution 14 unit SC HS Diabetes 07/04/24
ipratropium 0.5 mg-albuterol 3 mg (2.5 mg base)/3 mL nebulization soln 3 ml inhalation R Q6HPRN PRN sob 07/04/24
levothyroxine 25 mcg tablet 25 mcg PO DAILY Thyroid 07/04/24
magnesium hydroxide 400 mg/5 mL oral suspension (Milk of Magnesia) 2,400 mg PO DAILYPRN PRN if no bm by 3rd day 07/04/24
melatonin 3 mg tablet 6 mg PO HS Sleep 07/04/24
sennosides 8.6 mg tablet (senna) 17.2 mg PO HS Constipation 07/04/24
carvedilol 12.5 mg tablet 12.5 mg PO BID 30 days #60 tabs 07/09/24
ammonium lactate 12 % lotion (AmLactin) 1 applic topical DAILY bue/ble 08/27/24
duloxetine 40 mg capsule,delayed release sprinkle 40 mg PO DAILY Mental Health/Anxiety 08/27/24
hydralazine 10 mg tablet 10 mg PO Q6HPRN PRN sbp > 150 08/27/24
magnesium oxide 500 mg PO FR Supplement 08/27/24
menthol 0.44 %-zinc oxide 20.6 % topical ointment (Moisture Barrier Ointment) 1 applic topical TID sacrum/groin 08/27/24
dapagliflozin propanediol 10 mg tablet 10 mg PO DAILY #30 tabs 09/02/24
furosemide 20 mg tablet 60 mg (3 x 20 mg) PO DAILY #90 tabs 09/02/24
docusate sodium 100 mg capsule (Colace) 100 mg PO DAILY 11/26/24
guaifenesin 100 mg/5 mL oral liquid 250 mg PO Q6H PRN Cough 11/26/24
Review of Systems
-
History Source: Patient
A 12 point ROS was completed and negative except as noted: Yes
Constitutional: Denies Fever or Chills
EENT: Denies Sore Throat
Respiratory: Denies Cough or Trouble Breathing
Cardiac: Denies Chest Pain or Palpitations
Abdomen/GI: Denies Abdominal Pain, Nausea, Vomiting or Diarrhea
: Reports Bleeding
Neurological: Reports Weakness; Denies Dizzy or Headache
Physical Exam
Vital Signs
Vital Signs
Temp Pulse Resp BP Pulse Ox
97.7 F 83 19 99/49 99
11/26/24 03:40 11/26/24 06:25 11/26/24 06:25 11/26/24 06:25 11/26/24 06:25
Physical Exam
General: Other (Ill-appearing 79y F. Answers questions if slowly.)
HEENT: Other (Dry MM. Neck supple.)
Respiratory: Other (Breath sounds are diminished bilaterally. Otherwise clear. No W/R/R.)
Cardiac: S1/S2 and Regular Rhythm; No Murmur
GI: Other (Umbilical hernia that is firm / tender. Not easily reduced. No other areas of evident tenderness. Fullness in the lower abdomen / pelvic area.)
Musculoskeletal: Other (Chronic venous stasis skin changes. No significant pitting edema. L femoral TLC in place. Peripheral IV in L foot.)
Neuro: Awake, Nonfocal/grossly intact and Other (sluggish / lethargic)
Laboratory Results
-
11/26/24 05:40
11/26/24 05:40
Laboratory Results
PT 18.6 Sec (11.4-14.6) H 11/26/24 05:40
INR 1.53 11/26/24 05:40
Lactic Acid 0.5 mmol/L (0.7-2.0) L 11/26/24 05:42
Total Bilirubin 0.6 mg/dl (0.2-1.3) 11/26/24 05:40
AST 12 U/L (14-36) L 11/26/24 05:40
ALT < 10 U/L (0-35) 11/26/24 05:40
Alkaline Phosphatase 63 U/L (38-126) 11/26/24 05:40
Troponin I 0.046 ng/ml H* 11/26/24 03:58
Impression/Plan
-
A/P: Patient is an 79y F with PMH significant for HTN, CKD and CHF who presents to ED from local [place] hypotensive / in shock.
Shock
- Admit to ICU for further evaluation and treatment.
- Suspect hypovolemic v cardiogenic shock based on current information.
- Lactate level 0.5. Afebrile.
- Continue pressor support to maintain perfusion.
- Give additional NSS bolus followed by IVFs with bicarb - does not appear volume overloaded.
- ? overdiuresis with current diuretic regimen.
- CXR and CT A/P are pending at present for further evaluation.
Acute Normocytic Anemia - Likely due to blood loss
Hematuria / Vaginal Bleeding
- Patient reports recent vaginal bleeding. Gross blood after Mejia placement.
- Also oozing blood at IV / central line sites.
- Check coagulation studies, LDH, haptoglobin, etc.
- Transfusion consent obtained via phone from son.
- Would give one unit now given worsening anemia (10 to 8 on repeat labs) and hypotension / shock.
- CT A/P pending as noted above.
- Consider pelvic US, GTN eval, etc depending on results of CT.
- Follow H&H and provide additional blood products if needed.
- Will cover for possible UTI with ceftriaxone pending culture data.
XANDER on CKD IV
Metabolic Acidosis
- Suspect ATN secondary to hypotension / shock.
- SCr = 7.2 compared to baseline of 2.0.
- ? degree of compromise due to overdiuresis on diuretics?
- IVFs with supplemental bicarb for now.
- Continue pressors to maintain perfusion.
- Hold all usual meds acutely.
- Nephrology evaluation for additional recommendations.
- Patient has apparently discussed possibility of HD in the past and has declined.
Chronic HFpEF
- Patient does not appear grossly volume overloaded at present.
- Not hypoxemic. Prior records state both that she is / and is not on home O2 at 2 lpm - unsure which is accurate.
- Hold diuretics acutely. IVFs + pressors as noted above.
- Update Echo given shock.
- Follow I/Os, daily weights, etc.
DM-II with Hypoglycemia
- Hold all insulins acutely.
- D5 in IVFs for now and follow fingerstick glucose.
- Update A1C.
History of DVT
DVT Prophylaxis
- Hold Eliquis acutely given bleeding / hypotension.
- SCDs. IVC filter (remote) in place.
Code Status: DNR
[2024-11-26 06:41] LABS: Urine Red Blood Cell >100 /HPF (0-2); Urine White Cell 50-60 /HPF (0-5)
--- NOTE | 2024-11-26 08:30 | W.PN.HOSP.TC ---
Today's Communication/Plan
-
follow labs
H&H
cont pressors
cont rocephin
Assessment / Plan
Assessment / Plan
pt is an 79 year olod female
Shock--possibly due to hypovolemia or acute blood loss from bleeding (patel)--will follow H&H and transfuse if <8--do not believe sepsis with normal WBC and normal lactic--cont levophed and dobutamine--agree with IVF--await renal input--hold all
meds given hypotension--await CT scan abdom/pelvis
Acute Anemia--Likely due to blood loss from hematuria--cont patel--consider urology--INR 1.53--LDH, haptoglobin--covering for possible UTI--rocephin--await culture
XANDER on CKD IV with Metabolic Acidosis- Suspect ATN secondary to hypotension/shock-- SCr = 7.2 compared to baseline of 2.0--await renal--hold diuresis- Patient has apparently discussed possibility of HD in the past and has declined.
Chronic HFpEF--without exacerbation despite elevated proBNP--on room air currently--check echo--I/Os--holding diurestics
DM-II with Hypoglycemia - Hold all insulins acutely - D5 in IVFs for now and follow fingerstick glucose--check HGB A1C.
History of DVT -- on eliquis, holding for now- SCDs. IVC filter (remote) in place.
Code Status-- DNR--Dr. Tony spoke with son in [place]
Total Critical Care Time 40 minutes. I was immediately available to the patient and staff. I personally examined, reviewed labs, diagnostic images/reports, interpretations, treatment plans, discussed patient care with other providers and family
or caregivers (if patient is unable to make decisions), entered orders as appropriate and documented the medical record.
Anticipated Discharge: > 48 hours
Subjective/Interval History
-
Date of Service: November 26, 2024
pt answering questions--apparently more awake than on arrival but on 2 pressors
Objective Data
-
Labs:
Laboratory Results
11/26/24 11/26/24
03:58 05:40
WBC 7.6 7.4
Hgb 10.6 L 8.6 L
Hct 31.5 L 26.9 L
Plt Count 251 235
PT 18.6 H
INR 1.53
Sodium 136 137
Potassium 4.1
Chloride 112 H 117 H
Carbon Dioxide 8 L* 7 L*
BUN 102 H* 92 H
Creatinine 7.2 H* 6.4 H*
Glucose 61 L 53 L*
Calcium 8.1 L 7.2 L
Total Bilirubin Cancelled 0.6
AST Cancelled 12 L
ALT Cancelled < 10
Alkaline Phosphatase Cancelled 63
Vital Signs:
max temp for 24 hours
11/26/24
03:40
Temp 97.7 F
Vital Signs
Temp Pulse Resp BP Pulse Ox
97.7 F 83 18 104/76 98
11/26/24 03:40 11/26/24 08:20 11/26/24 08:20 11/26/24 08:20 11/26/24 08:20
Review of Systems
-
All other systems: Reviewed and negative
Abdomen/GI: Reports Abdominal Pain and Constipated
Physical Exam
-
General: Well Developed, Well Nourished and No Apparent Distress
HEENT: Normocephalic and Atraumatic; Negative Oxygen
Respiratory: Clear to Auscultation; Negative Wheezes, Rales, Rhonchi or Crackles
Cardiac: Regular Rhythm and S1/S2; Negative Murmur
GI: Soft, Nondistended, Tender (diffusely without guarding or rebound) and Other (non reducible umbilical hernia); Negative Normal Bowel Sounds (hypoactive)
Musculoskeletal: No Clubbing, No Cyanosis and No Edema
Skin: Ulcers (dorsum of right great toe)
Psych: Calm
--- NOTE | 2024-11-26 08:42 | CM ---
Patient seen at bedside in ED. Patient responded to name and stated [facility] when asked about facility. Patient is from [facility] and per transfer form has been there since 02/08 [place] patient. CM called to liaison and requested confirmation of
plan. CM will continue to follow for discharge planning needs.
Plan;return to SNF; pending medical treatment plan.
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
[2024-11-26] MEDS: SODIUM BICARBONATE 1150 MEQ IV ×2 (09:58→18:33)
--- NOTE | 2024-11-26 10:06 | W.CON.NEPH ---
Consultation
-
Date/Time Consultation Requested: 11/26/24 0912
Date/Time Consultation Performed: 11/26/24 1000
Requesting Provider: Isac Tejeda
Performing Provider: Codie Alfredo
Reason for Consultation: XANDER with CKD, emt acidosis
Medical History
-
Chief Complaint: Weakness
History of Present Illness:
79y F with PMH significant for hypertension , advanced CKD4 cr at [address] Danielson, IDDM, and CHFp EF on lasix and Farxiga who [place] from local [place]. Report from [place] indicated that patient was sent for elevated BP and SOB. Upon
arrival to the ED, patient was noted to be lethargic and markedly hypotensive. She was not hypoxemic on room air - despite chronically being on 2 lpm of supplemental O2. L femoral catheter was placed and patient started on pressor support. Patient
became gradually more responsive but slow to respond. She reports feeling sick with cough for last few days with out fever. No SOB remains on RA. SHe is currently on warm blanket. She denies any pain. She does admit of decrease UOP for 1 day.
Reportedly she has had some bleeding from the vaginal area recently - unsure how long.
Patel was placed in the ED for return of cloudy, blood urine.
Lab work shows hb 10.6, WBC 7.6, BUN 1020, cr 7.2, bicarb 8-repeat labs this am shows cr 6.4, bicarb 7, bun 92, hb down to 8.6, L acid 0.5. SHe just completed 2lit of ND bolus and on dual pressors. Nephrology consulted for XANDER and severe met
acidosis.
CT abd /pelvis with out contrast shows possible PNA, non obst K stone, on right side, galls tones
Past Medical History
Hypertension
DM-II
CKD IV
HFpEF
GERD
History of DVT
Past Surgical History: Other (Hysterectomy Bilateral JADA Bilateral TKA Rotator Cuff Repair IVC Filter Placement)
Social History
Tobacco: Non-Smoker
Alcohol: None
Personal:
Living: Snf
Family History
Family History: Not Pertinent
Allergies / Home Medications
Allergy/AdvReac Type Severity Reaction Status Date / Time
daptomycin Allergy CK>5000 Verified 07/03/24 22:45
doxylamine Allergy leg Verified 07/03/24 22:45
weakness
lactose Allergy INTOLERANT Verified 07/03/24 22:45
morphine Allergy Nausea / Verified 07/03/24 22:45
Vomiting
Penicillins Allergy Swelling/ch Verified 07/03/24 22:45
ildhood
�Medication �Instructions �Recorded �Confirmed �Type
apixaban 2.5 mg tablet (Eliquis) 2.5 mg PO BID Blood clot 11/23/20 11/26/24 History
prevention/tx
cyanocobalamin (vitamin B-12) 1,000 mcg PO DAILY Supplement 12/19/20 11/26/24 History
1,000 mcg tablet
atorvastatin 10 mg tablet 10 mg PO HS High cholesterol 05/18/21 11/26/24 History
estradiol 1 mg tablet 1 mg PO DAILY Hormonal agent 05/18/21 11/26/24 History
fluticasone propionate 50 1 spray intranasal BID Congestion 05/18/21 11/26/24 History
mcg/actuation nasal
spray,suspension
acetaminophen 325 mg tablet 650 mg (2 x 325 mg) PO Q4HPRN PRN 05/27/21 11/26/24 Rx
mild pain/ fever>100.5F
bisacodyl 10 mg rectal suppository [address] DAILYPRN PRN if mom 05/27/21 11/26/24 Rx
(OneLAX Bisacodyl) ineffective
pantoprazole 40 mg tablet,delayed 40 mg PO DAILY Gastrointestinal 01/18/23 11/26/24 History
release Issue
polyethylene glycol 3350 17 gram 17 grams PO DAILY Constipation 01/18/23 11/26/24 History
oral powder packet
sodium phosphates 19 gram-[address] DAILYPRN PRN if no bm 01/18/23 11/26/24 History
gram/118 mL enema (Fleet Enema) aftr dulcolax
tamsulosin 0.4 mg capsule 0.4 mg PO DAILY Urinary Issue 01/18/23 11/26/24 History
Saccharomyces boulardii 250 mg 250 mg PO DAILY Gastrointestinal 07/04/24 11/26/24 History
capsule (Florastor) Issue
ferrous sulfate 325 mg (65 mg 325 mg PO BID Supplement 07/04/24 11/26/24 History
iron) tablet
insulin aspart U-100 100 unit/mL 0 sliding scale dose SC ACHS 07/04/24 11/26/24 History
subcutaneous solution Diabetes
insulin glargine 100 unit/mL 14 unit SC HS Diabetes 07/04/24 11/26/24 History
subcutaneous solution
ipratropium 0.5 mg-albuterol 3 mg 3 ml inhalation R Q6HPRN PRN sob 07/04/24 11/26/24 History
(2.5 mg base)/3 mL nebulization
soln
levothyroxine 25 mcg tablet 25 mcg PO DAILY Thyroid 07/04/24 11/26/24 History
magnesium hydroxide 400 mg/5 mL 2,400 mg PO DAILYPRN PRN if no bm 07/04/24 11/26/24 History
oral suspension (Milk of Magnesia) by 3rd day
melatonin 3 mg tablet 6 mg PO HS Sleep 07/04/24 11/26/24 History
sennosides 8.6 mg tablet (senna) 17.2 mg PO HS Constipation 07/04/24 11/26/24 History
carvedilol 12.5 mg tablet 12.5 mg PO BID 30 days #60 tabs 07/09/24 11/26/24 Rx
ammonium lactate 12 % lotion 1 applic topical DAILY bue/ble 08/27/24 11/26/24 History
(AmLactin)
duloxetine 40 mg capsule,delayed 40 mg PO DAILY Mental 08/27/24 11/26/24 History
release sprinkle Health/Anxiety
hydralazine 10 mg tablet 10 mg PO Q6HPRN PRN sbp > 150 08/27/24 11/26/24 History
magnesium oxide 500 mg PO FR Supplement 08/27/24 11/26/24 History
menthol 0.44 %-zinc oxide 20.6 % 1 applic topical TID sacrum/groin 08/27/24 11/26/24 History
topical ointment (Moisture Barrier
Ointment)
dapagliflozin propanediol 10 mg 10 mg PO DAILY #30 tabs 09/02/24 11/26/24 Rx
tablet
furosemide 20 mg tablet 60 mg (3 x 20 mg) PO DAILY #90 tabs 09/02/24 11/26/24 Rx
docusate sodium 100 mg capsule 100 mg PO DAILY Constipation 11/26/24 11/26/24 History
(Colace)
guaifenesin 100 mg/5 mL oral liquid 300 mg PO Q6HPRN PRN Cough 11/26/24 11/26/24 History
Review of Systems
-
Unable to obtain full review of systems at this time due to: Acuity
Physical Exam
Vital Signs
Vital Signs
Temp Pulse Resp BP Pulse Ox
94 F L 83 18 104/76 98
11/26/24 09:42 11/26/24 08:20 11/26/24 08:20 11/26/24 08:20 11/26/24 08:20
Lab Results
eGFR 6.14 11/26/24 05:40
Grx-X-Lfkmhggmdas Pept Cancelled 11/26/24 04:03
Abnormal Lab Results
11/26/24 11/26/24 11/26/24
03:58 05:40 05:42
RBC 3.34 L 2.78 L
Hgb 10.6 L 8.6 L
Hct 31.5 L 26.9 L
MCH 31.7 H
MCHC 32.0 L
RDW 14.9 H
MPV 11.1 H 10.9 H
Absolute Lymphs (auto) 0.9 L
Neutrophils % 78.9 H
Lymphocytes % 19.5 L 12.5 L
PT 18.6 H
APTT
D-Dimer
Chloride 112 H 117 H
Carbon Dioxide 8 L* 7 L*
BUN 102 H* 92 H
Creatinine 7.2 H* 6.4 H*
Glucose 61 L 53 L*
Lactic Acid 0.5 L
Calcium 8.1 L 7.2 L
Phosphorus 7.6 H
TIBC
% Saturation
AST 12 L
Troponin I 0.046 H*
Total Protein 5.7 L
Albumin 2.3 L
Ur Occult Blood Reflex 4+ A
Leukocyte Esterase Rfl 3+ A
Urine RBC >100 A
Urine WBC (Reflex) 50-60 A
Urine Bacteria (Reflex) Moderate A
Urine Albumin (Reflex) 4+ A
Crossmatch IS Only
11/26/24 11/26/24
08:32 09:44
RBC
Hgb
Hct
MCH
MCHC
RDW
MPV
Absolute Lymphs (auto)
Neutrophils %
Lymphocytes %
PT
APTT 42.6 H
D-Dimer 2.50 H
Chloride
Carbon Dioxide
BUN
Creatinine
Glucose
Lactic Acid
Calcium
Phosphorus
TIBC 103 L
% Saturation 110 H
AST
Troponin I 0.059 H* D
Total Protein
Albumin
Ur Occult Blood Reflex
Leukocyte Esterase Rfl
Urine RBC
Urine WBC (Reflex)
Urine Bacteria (Reflex)
Urine Albumin (Reflex)
Crossmatch IS Only See Detail
Physical Exam
General: Awake, No Distress and Nontoxic
HEENT: Anicteric, Conjunctivae Clear and Facial Symmetry
Respiratory: Clear (anteriorly), Normal Excursion and Nonlabored Respirations
Cardiac: S1/S2 and Regular Rate/Rhythm
Breast: Deferred by me
Abdomen: Soft, Nontender and Nondistended
Musculoskeletal: Edema (2+seem chronic)
Skin: No Rash
Neuro: Other (difficult to assess pt is not completely awake)
Psych: Other (difficult to assess pt is not completely awake)
Data Reviewed
-
Labs: Labs Reviewed by me, Discussed with Nurse and Discussed with Patient
Assessment/Plan
-
IMP:
Shock--possibly due to hypovolemia or acute blood loss from bleeding (patel)
Acute Anemia
XANDER on CKD IV with Metabolic Acidosis-cr 2, Dr Danielson
Severe met acidosis-mixed, A gap 20
Chronic HFpEF
DM-II with Hypoglycemia
History of DVT s/p IVCF
Diabetes mellitus type 2
Hypertension
Hyperlipidemia
CAD
h/o C diff
h/o DVT
NOn obst K stone on right kidney on CT
Plan:
A/w weakness, hypotension and XANDER
XANDER-suspect prerenal vs ATN from hypotension
cr improving with IVF but no sig UOP
no emergent need of HD
She previously refused HD
cont IVF, pressors to keep MAP>65
BNP high but seem dry clinically
gross hematuria from patel , CT shows only non obst K stone, consider eval
severe met acidosis, gap and non gap with normal L acid, agree with IV bicarb and will also give IV pushx1
prn trasnfusion for anemia
abx per ID
avoid nephrotoxins, hold farxiga and lasix
hypoglycemia-on D5 IVF
d/w nursing and ICU
CC time spent 45min
long discussion with son pn phone and reviewed risk of HD -he will speak to his sister and make some decision
he understands she likely not good candidate for long term HD as her QOL already poor in [place], WC bound
will wait next labs this afternoon
dose meds renally
[2024-11-26] MEDS: NSS (PRESERVATIVE FREE) 10 ML IV (10:07)
[2024-11-26] MEDS: PROTONIX IV 40 MG IV (10:07)
[2024-11-26] MEDS: STERILE WATER FOR INJECTION 10 ML IV ×2 (10:08→10:31)
[2024-11-26] MEDS: ROCEPHIN 1000 MG IV (10:08)
[2024-11-26 10:09] LABS: D-Dimer 2.50 ug/mlFEU (0.00-0.50)
--- NOTE | 2024-11-26 10:14 | PTCARENOTE ---
As discussed in rounds, will hold on transfusion at this time and repeat labs at 3pm
[2024-11-26 10:26] LABS: Troponin I 0.059 ng/ml
[2024-11-26 10:37] LABS: APTT 42.6 Sec (23.4-35.0)
[2024-11-26 10:38] LABS: Iron 114 ug/dl (37-170); LDH 175 U/L (120-246)
[2024-11-26 10:47] LABS: Total Iron Binding Capacity 103 ug/dl (265-497)
[2024-11-26 11:22] LABS: Magnesium 2.1 mg/dl (1.6-2.3)
[2024-11-26 11:51] LABS: Glucose - Point of Care 165 mg/dl (70-99)
[2024-11-26] MEDS: SODIUM BICARBONATE 50 MEQ IV (12:06)
--- NOTE | 2024-11-26 12:27 | PTCARENOTE ---
Daughter called and given update, reports that she spoke with NH and they said pt hasn't been eating/drinking recently. Pierce You and Jagjit aware. Consent obtained by Dr You for christiano placement and he was assisted to place in R wrist.
BP correlates with bp cuff, Dobutamine has been weaned to off, weaning levo as able.
--- NOTE | 2024-11-26 12:40 | W.SUR.POST ---
Surgical Immediate Post Op
Note
Arterial Catheter Insertion Procedure
Date of procedure: 11/26/2024
Pre Op Diagnosis: Septic shock
Post Op Diagnosis: Same as above
Procedure Performed: Arterial line insertion
Primary Proceduralist: Dr. You
Secondary Surgeons: N/A
Anesthesia: N/A
Estimated Blood Loss: 5cc
Fluids: N/A
Drains/Shunts: N/A
Specimens/Cultures: N/A
Doppler/Duplex/Angio (Y/N): N/A
Complications: No immediate complications
Procedural findings: After informed verbal consent was obtained from the daughter, Arlen, over the phone, the patient was positioned with her distal right upper extremity supinated. Palpable radial pulse as well as palpable ulnar pulse
identified. Collateral flow appreciated with a positive Skyler test. Sterile technique was employed with handwashing, cap, gown, face mask and sterile gloves. The right radial artery site was cleaned with a ChloraPrep. Ultrasound guidance was
utilized to identify the patent radial artery which had good pulsatility. Integral-guidewire (Arrow) technique was used. The catheter was inserted into the patient's skin and advanced until pulsatile blood flow was seen inside the catheter. The
guidewire was advanced through the needle and catheter to the hub. The outer catheter was advanced over the needle and wire into the artery. The needle�guidewire unit was removed entirely. The arterial catheter was attached to the tubing with
appropriate waveform seen. Arterial line was secured into place using a Ethicon 0 silk suture. The insertion site was covered with a Biopatch and the entire catheter was then covered with a Tegaderm. There were no immediate complications.
--- NOTE | 2024-11-26 13:28 | CONS.URO ---
Consultation
-
Date/Time Consultation Performed: 11/26/24 1215
Performing Provider: Peffer
Reason for Consultation: Hematuria
Medical History
History of Present Illness
79F with hx hypertension, advanced CKD and CHF who [place] to ED from local [place] due to BP and SOB.
Upon arrival to the ED, patient was noted to be lethargic and markedly hypotensive.
L femoral catheter was placed and patient started on pressor support.
She denied any pain
Patient stated in ED that she has had some bleeding from the vaginal area recently - unsure how long
Patel was placed in the ED for return of cloudy, blood urine
Urology consulted for hematuria
No known prior urologic history
She does have tamsulosin on medication list for 'urinary issue' and unknown reason
CT scan showed a small R renal stone
No hydronephrosis, mass, or obstruction
Bladder limited by hip prostheses but on proper window appears decompressed with patel in place, no clots
Past Medical History
Past Medical History: Other (as above)
Past Surgical History: Other
Social History
Tobacco: Non-smoker
Alcohol: None
Drug: None
Living: [facility]
Family History
Family History: Reviewed & Not Pertinent
Allergies/Home Medications
Allergies
Allergy/AdvReac Type Severity Reaction Status Date / Time
daptomycin Allergy CK>5000 Verified 07/03/24 22:45
doxylamine Allergy leg Verified 07/03/24 22:45
weakness
lactose Allergy INTOLERANT Verified 07/03/24 22:45
morphine Allergy Nausea / Verified 07/03/24 22:45
Vomiting
Penicillins Allergy Swelling/ch Verified 07/03/24 22:45
ildhood
Home Medications
�Medication �Instructions �Recorded �Confirmed �Type
apixaban 2.5 mg tablet (Eliquis) 2.5 mg PO BID Blood clot 11/23/20 11/26/24 History
prevention/tx
cyanocobalamin (vitamin B-12) 1,000 mcg PO DAILY Supplement 12/19/20 11/26/24 History
1,000 mcg tablet
atorvastatin 10 mg tablet 10 mg PO HS High cholesterol 05/18/21 11/26/24 History
estradiol 1 mg tablet 1 mg PO DAILY Hormonal agent 05/18/21 11/26/24 History
fluticasone propionate 50 1 spray intranasal BID Congestion 05/18/21 11/26/24 History
mcg/actuation nasal
spray,suspension
acetaminophen 325 mg tablet 650 mg (2 x 325 mg) PO Q4HPRN PRN 05/27/21 11/26/24 Rx
mild pain/ fever>100.5F
bisacodyl 10 mg rectal suppository 10 mg ME DAILYPRN PRN if mom 05/27/21 11/26/24 Rx
(OneLAX Bisacodyl) ineffective
pantoprazole 40 mg tablet,delayed 40 mg PO DAILY Gastrointestinal 01/18/23 11/26/24 History
release Issue
polyethylene glycol 3350 17 gram 17 grams PO DAILY Constipation 01/18/23 11/26/24 History
oral powder packet
sodium phosphates 19 gram-7 118 ml ME DAILYPRN PRN if no bm 01/18/23 11/26/24 History
gram/118 mL enema (Fleet Enema) aftr dulcolax
tamsulosin 0.4 mg capsule 0.4 mg PO DAILY Urinary Issue 01/18/23 11/26/24 History
Saccharomyces boulardii 250 mg 250 mg PO DAILY Gastrointestinal 07/04/24 11/26/24 History
capsule (Florastor) Issue
ferrous sulfate 325 mg (65 mg 325 mg PO BID Supplement 07/04/24 11/26/24 History
iron) tablet
insulin aspart U-100 100 unit/mL 0 sliding scale dose SC ACHS 07/04/24 11/26/24 History
subcutaneous solution Diabetes
insulin glargine 100 unit/mL 14 unit SC HS Diabetes 07/04/24 11/26/24 History
subcutaneous solution
ipratropium 0.5 mg-albuterol 3 mg 3 ml inhalation R Q6HPRN PRN sob 07/04/24 11/26/24 History
(2.5 mg base)/3 mL nebulization
soln
levothyroxine 25 mcg tablet 25 mcg PO DAILY Thyroid 07/04/24 11/26/24 History
magnesium hydroxide 400 mg/5 mL 2,400 mg PO DAILYPRN PRN if no bm 07/04/24 11/26/24 History
oral suspension (Milk of Magnesia) by 3rd day
melatonin 3 mg tablet 6 mg PO HS Sleep 07/04/24 11/26/24 History
sennosides 8.6 mg tablet (senna) 17.2 mg PO HS Constipation 07/04/24 11/26/24 History
carvedilol 12.5 mg tablet 12.5 mg PO BID 30 days #60 tabs 07/09/24 11/26/24 Rx
ammonium lactate 12 % lotion 1 applic topical DAILY bue/ble 08/27/24 11/26/24 History
(AmLactin)
duloxetine 40 mg capsule,delayed 40 mg PO DAILY Mental 08/27/24 11/26/24 History
release sprinkle Health/Anxiety
hydralazine 10 mg tablet 10 mg PO Q6HPRN PRN sbp > 150 08/27/24 11/26/24 History
magnesium oxide 500 mg PO FR Supplement 08/27/24 11/26/24 History
menthol 0.44 %-zinc oxide 20.6 % 1 applic topical TID sacrum/groin 08/27/24 11/26/24 History
topical ointment (Moisture Barrier
Ointment)
dapagliflozin propanediol 10 mg 10 mg PO DAILY #30 tabs 09/02/24 11/26/24 Rx
tablet
furosemide 20 mg tablet 60 mg (3 x 20 mg) PO DAILY #90 tabs 09/02/24 11/26/24 Rx
docusate sodium 100 mg capsule 100 mg PO DAILY Constipation 11/26/24 11/26/24 History
(Colace)
guaifenesin 100 mg/5 mL oral liquid 300 mg PO Q6HPRN PRN Cough 11/26/24 11/26/24 History
Physical Exam
Vital Signs
Vital Signs
Temp Pulse Resp BP Pulse Ox
96.9 F L 83 18 153/59 98
11/26/24 13:00 11/26/24 11:15 11/26/24 11:15 11/26/24 11:15 11/26/24 11:15
Physical Exam
General: Well Developed and Well Nourished
Respiratory: Non Labored Respirations
GI: Soft and Non Tender
Genito-urinary: No Costovertebral Tend, Turbid Urine and Patel Catheter
Neuro: Awake
Psych: Calm
Assessment / Plan
-
79F admitted with shock, hypotension, anemia
Found to have gross hematuria on patel placement
- Gross hematuria nearly resolved shortly after catheter placement with tea colored/light yellow urine in tubing
- CT showed no obstructing stone, hydronephrosis, renal tumor, bladder mass, or blood products in urinary tract
- Small nonobstructing R ureteral stone is noncontributory
- Possible hemorrhagic cystits/UTI
- Trend hematuria, maintain patel, continue abx pending culture
--- NOTE | 2024-11-26 14:21 | PTCARENOTE ---
echo at bedside.
[2024-11-26] MEDS: NOVOLOG FLEXPEN-LOW RESISTANCE SC (15:13)
[2024-11-26 15:26] LABS: Hematocrit 27.1 % (37.0-47.0); Hemoglobin 8.9 g/dL (12.0-16.0); Mean Corp Hgb Conc. 32.8 g/dL (33.0-37.0); Mean Corpuscular Volume 94.1 fL (81.0-99.0); Platelet Count 248 10^3/uL (130-400); Red Cell Dist. Width 14.9 % (11.5-14.5)
--- NOTE | 2024-11-26 15:28 | WOUNDNOTE ---
Right first and second toe
--- NOTE | 2024-11-26 15:28 | WOUNDNOTE ---
LEFT HEEL 1945, MR [id number]
--- NOTE | 2024-11-26 15:29 | WOUNDNOTE ---
RIGHT HEEL 1945, [id number]
--- NOTE | 2024-11-26 15:32 | WOUNDNOTE ---
WO RN note: Patient admitted with sepsis
See H&P for complete history.
PMH: HTN, CKD IV, CHF, DM-2, HF
Wound Location and type/assessment: Patient admitted with stage 2 PI of sacrum and stage 1 PI of bilateral heels. Patient also admitted right great toe wound with adherent scab and small closed wound on right second toe. Please see wordlist for
measurements and descriptions. Patient also noted to have MASD of groin and staff is using barrier ointment. A patel has also been placed. Patient resides in [place] and per chart review is bedbound.
Appetite: Patient unable to report
Pressure redistribution devices in place: Centrella Max Air, turning schedule, heels off-loaded with pillow under calves.
Plan: Will recommend Betadine to toe wounds and protective foam to bilateral heel and sacrum. Continue all off-loading measures. Patient has several comorbidities including CKD IV and is bedbound. Wounds may worsen and new wounds may develop even
with optimal care. Will confirm orders with hospitalist and update nurse. Updated care plan and will follow as needed.
Note to case management of equipment requested for discharge:
Recommend follow up at wound care center upon discharge.
[2024-11-26 15:48] LABS: Troponin I 0.081 ng/ml
--- NOTE | 2024-11-26 15:54 | PTCARENOTE ---
Dr You aware of repeat labs. Still holding transfusion Pt has been weaned to 3mcg/min levo, mean dropped below 65 on 2 levo.
[2024-11-26 17:06] LABS: ALT (SGPT) < 10 U/L (0-35); AST (SGOT) 17 U/L (14-36); Albumin 2.2 g/dl (3.5-5.0); Alkaline Phosphatase 64 U/L (38-126); Blood Urea Nitrogen 87 mg/dl (7-17); Calcium 7.0 mg/dl (8.4-10.2); Carbon Dioxide 11 mmol/L (22-30); Chloride 111 mmol/L (98-107); Estimated Creatinine Clearance 7 ml/min; Glucose 231 mg/dl (70-99); Potassium 3.6 mmol/L (3.5-5.1); Sodium 135 mmol/L (135-145); Total Protein 5.4 g/dl (6.3-8.2); eGFR 6.91
[2024-11-26 17:22] LABS: Glucose - Point of Care 249 mg/dl (70-99)
[2024-11-26] MEDS: LIPITOR 10 MG PO (17:40)
[2024-11-26] MEDS: NOVOLOG FLEXPEN-LOW RESISTANCE 2 UNITS SC (17:43)
[2024-11-26] MEDS: FEOSOL 325 MG PO (19:58)
--- NOTE | 2024-11-26 21:00 | PTCARENOTE ---
Pt received start of shift, HR SR on telemetry. Pt w/ slow speech. Weak occasional cough. Drowsy. Pt confused at times, but can state name and where she is. Occasional confused conversation. Levo gtt off - pt maintaining BP. Bloody drainage out
patel. L fem triple lumen very bloody, leaking under dressing. Dressing removed, site cleaned, new dressing placed all w aseptic technique. Bicarb gtt continuing as ordered.
[2024-11-26] MEDS: SENOKOT PO (22:23)
[2024-11-26] MEDS: LANTUS 0.07 UNITS SC (22:23)
[2024-11-26 22:26] LABS: Troponin I 0.093 ng/ml
[2024-11-26 22:32] LABS: Glucose - Point of Care 181 mg/dl (70-99)
[2024-11-26] MEDS: NOVOLOG FLEXPEN-MODERATE RESISTANCE 1 UNITS SC (23:36)
[2024-11-26 23:49] LABS: Glucose - Point of Care 153 mg/dl (70-99)
[2024-11-27] VITALS (22 sets, daily range): BP systolic 113–154; BP diastolic 48–104; BMI 31.1
--- NOTE | 2024-11-27 00:09 | PTCARENOTE ---
Pt self-removed R radial arterial line. Pressure held at site until hemostasis achieved. Sterile gauze and tegaderm placed over insertion site. 2 loose BMs. Levo gtt remains off.
[2024-11-27 03:27] LABS: Hematocrit 25.3 % (37.0-47.0); Hemoglobin 8.4 g/dL (12.0-16.0); Mean Corp Hgb Conc. 33.2 g/dL (33.0-37.0); Mean Corpuscular Volume 91.7 fL (81.0-99.0); Platelet Count 216 10^3/uL (130-400); Red Cell Dist. Width 14.6 % (11.5-14.5)
[2024-11-27 03:37] LABS: INR 1.26; PT 16.3 Sec (11.4-14.6)
[2024-11-27 03:39] LABS: APTT 40.2 Sec (23.4-35.0)
[2024-11-27 04:02] LABS: ALT (SGPT) < 10 U/L (0-35); AST (SGOT) 13 U/L (14-36); Albumin 2.3 g/dl (3.5-5.0); Alkaline Phosphatase 67 U/L (38-126); Blood Urea Nitrogen 83 mg/dl (7-17); Calcium 6.6 mg/dl (8.4-10.2); Carbon Dioxide 21 mmol/L (22-30); Chloride 106 mmol/L (98-107); Estimated Creatinine Clearance 7 ml/min; Glucose 121 mg/dl (70-99); Magnesium 1.8 mg/dl (1.6-2.3); Potassium 3.4 mmol/L (3.5-5.1); Sodium 137 mmol/L (135-145); Total Protein 5.5 g/dl (6.3-8.2); eGFR 7.53
[2024-11-27 04:20] LABS: Cortisol, Random 22.1 ug/dl
[2024-11-27] MEDS: KCL 100 IV (04:26)
[2024-11-27] MEDS: CALCIUM GLUCONATE 130 MG IV (04:43)
[2024-11-27] MEDS: MAGNESIUM SULFATE 102 GRAMS IV (04:43)
[2024-11-27 05:50] LABS: Glucose - Point of Care 97 mg/dl (70-99)
[2024-11-27] MEDS: SODIUM BICARBONATE 1150 MEQ IV (05:52)
[2024-11-27] MEDS: NOVOLOG FLEXPEN-MODERATE RESISTANCE SC ×3 (05:55→18:43)
[2024-11-27] MEDS: SYNTHROID PO (05:55)
[2024-11-27 06:24] LABS: Glycohemoglobin (HgbA1c) 6.5 % (4.0-5.6)
--- NOTE | 2024-11-27 07:25 | PTCARENOTE ---
Received pt in contact isolation. She opened her eyes to verbal and tactile stimuli. Voice quality soft, dry and scratchy. Delayed verbal response when I asked her the current year. She responded with '20...'. Lethargic. C/O leg pain but unable to
describe if this is new or chronic. Left femoral TL CVC with bicarb drip and potassium rider. Left foot #24g protective catheter flushed and patent with blood return. Weak DP & radial pulses. +2 anasarca. Knee-hi scd's intact. +2 anasarca. Upper
extremities ecchymotic and L/E's discolored brown. +foot drop. Heels with foam dressings intact. 2 liters nasal cannula with pulse ox 100%. Poor inspiratory effort. Dim breath sounds throughout. Hypoactive BSx4. Denies nausea or abdominal pain.
Indwelling Mejia catheter secured and draining minimal tea colored urine with sediment. Sacral dressing CDI. She wa informed of the plan of care regarding turning and repositioning, swallow evaluation, and antibiotic administration. Safe environment
maintained. Will continue to monitor.
[2024-11-27] MEDS: PROTONIX IV 40 MG IV (07:58)
[2024-11-27] MEDS: NSS (PRESERVATIVE FREE) 10 ML IV (07:58)
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
--- NOTE | 2024-11-27 08:20 | PTCARENOTE ---
Reviewed the plan of care with Dr. Wallace at this time. Left foot IV removed as ordered given left femoral TL CVC in place.
--- NOTE | 2024-11-27 08:37 | W.PN.HOSP.TC ---
Today's Communication/Plan
-
cont current plans
off pressors
consider downgrade from ICU
Assessment / Plan
Assessment / Plan
pt is an 79 year olod female
Shock--possibly due to hypovolemia or acute blood loss from bleeding (patel)--will follow H&H and transfuse if <8--concern for septic shock due to UTI vs PNA--but normal WBC and normal lactic--off levophed and dobutamine--agree with IVF--apprec
renal input/urology/licensed pharmacist--hold all meds given hypotension--CT scan abdom/pelvis concern for RLL pna, otherwise no acute issues
Acute Anemia--Likely due to blood loss from hematuria--cont patel--apprec urology--INR 1.53--LDH 175, haptoglobin pending--covering for possible UTI--rocephin--urine culture with > 100K mixed issac
XANDER on CKD IV with Metabolic Acidosis- Suspect ATN secondary to hypotension/shock-- SCr = 7.2 compared to baseline of 2.0, improving to 5.4 but still above baseline--apprec renal, cont IVF with bicarb--hold diuresis- Patient has apparently discussed
possibility of HD in the past and has declined--poor candidate for HD moving forward
Chronic HFpEF--without exacerbation despite elevated proBNP--on room air currently--echo with preserved EF, otherwise no issues--I/Os--holding diuretics
DM-II with Hypoglycemia - Hold all insulins acutely-- follow fingerstick glucose--HGB A1C 6.5%
History of DVT -- on eliquis, holding for now- SCDs. IVC filter (remote) in place.
Code Status-- DNR--Dr. Tony spoke with son in [place]
Total Critical Care Time 31 minutes. I was immediately available to the patient and staff. I personally examined, reviewed labs, diagnostic images/reports, interpretations, treatment plans, discussed patient care with other providers and family
or caregivers (if patient is unable to make decisions), entered orders as appropriate and documented the medical record.
Anticipated Discharge: > 48 hours
Subjective/Interval History
-
Date of Service: November 27, 2024
pt c/o belly pain but only when asked about it
Objective Data
-
Labs:
Laboratory Results
11/27/24
03:11
WBC 7.7
Hgb 8.4 L
Hct 25.3 L
Plt Count 216
PT 16.3 H
INR 1.26
APTT 40.2 H
Sodium 137
Potassium 3.4 L
Chloride 106
Carbon Dioxide 21 L
BUN 83 H
Creatinine 5.4 H*
Glucose 121 H
Calcium 6.6 L*
Total Bilirubin 0.6
AST 13 L
ALT < 10
Alkaline Phosphatase 67
Vital Signs:
max temp for 24 hours
11/26/24
21:00
Temp 98.9 F
Vital Signs
Temp Pulse Resp BP Pulse Ox
96.6 F L 90 21 154/71 100
11/27/24 08:00 11/27/24 08:00 11/27/24 08:00 11/27/24 08:00 11/27/24 08:00
I&O
11/26/24 11/27/24 11/28/24
06:59 06:59 06:59
Intake Total 3403.0 / 3528.0 250 / 250
Output Total 400 / 400 40 / 40
Balance 3003.0 / 3128.0 210 / 210
Review of Systems
-
All other systems: Reviewed and negative
Abdomen/GI: Reports Abdominal Pain
Physical Exam
-
General: Appears Chronically Ill
HEENT: Normocephalic, Atraumatic and Oxygen
Respiratory: Clear to Auscultation; Negative Wheezes or Rhonchi
Cardiac: Regular Rhythm and S1/S2; Negative Murmur
GI: Soft, Nondistended, Normal Bowel Sounds and Tender (umbilical hernia)
Genito-urinary: Patel (tea colored urine--gross blood improved)
Musculoskeletal: No Clubbing, No Cyanosis and No Edema
Psych: Calm
--- NOTE | 2024-11-27 09:39 | CM ---
Patient seen at bedside in ICU. Patient sleeping and lethargic per nursing. Patient plan is for return to SNF when medically appropriate. CM will continue to follow for discharge planning needs.
PLan; SNF
[2024-11-27] MEDS: FEOSOL PO (09:41)
[2024-11-27] MEDS: VITAMIN B-12 PO (09:41)
[2024-11-27] MEDS: FLOMAX PO (09:41)
[2024-11-27] MEDS: MIRALAX PO (09:41)
--- NOTE | 2024-11-27 09:52 | PN.CDI ---
CDI
- -
CDI:
Physician Documentation Request
Admit Date: 11/26/24 06:58
Dear Doctor Madison,
Clinical Indicators:
11/26 WO RN skin/wound assessment, Sacrum Stage 2 Pressure Injury, POA
Bilateral Heels Stage 1 Pressure Injury, POA
Treatment: Silicone Border Foam dressings, pressure redistribution devices
Physician documentation of the type and location of wounds is required for compliant documentation. Based on the above clinical findings and your assessment, please provide the following in your progress note:
1. Location of the ulcer/wound, including laterality.
2. Type (etiology) of ulcer/wound:
- Pressure (decubitus) ulcer
- Other
3. If a pressure ulcer, please also include the stage* of the ulcer:
- Stage 1 - Skin intact, non-blanchable redness
- Stage 2 - Partial thickness loss of dermis, includes intact or open blister
- Stage 3 - Full thickness tissue not including bone, tendon or muscle
- Stage 4 - Full thickness tissue loss, including exposed bone, tendon or muscle
- Unstageable - Full thickness loss in which the base of the ulcer is covered by slough (yellow, brunson, diez, green or brown) and/or eschar (brunson, brown or black) in the wound bed.
- Unable to determine
Use of terms such as suspected, likely, concern for, or probable (associated with a specific diagnosis that is being evaluated, monitored, or treated as if it exists) are acceptable and can be coded in the inpatient setting, when documented at the
time of discharge.
Thank you,
RUBÉN Kramer RN
CDI Specialist
available via tiger text
Please use your independent medical judgment in providing your response.
*Source: National Pressure Ulcer Advisory Panel (NPUAP)
[2024-11-27] MEDS: ROCEPHIN 1000 MG IV (10:00)
[2024-11-27] MEDS: STERILE WATER FOR INJECTION 10 ML IV (10:00)
--- NOTE | 2024-11-27 10:44 | PTOTSP ---
Dysphagia Evaluation
Patient is at an acute elevated risk for dysphagia and aspiration given acute admission with septic shock with subsequent lethargy and encephalopathy and need for repeated verbal/tactile cues to alert. Chronic dysphagia risk factors include
dementia, rheumatoid arthritis, GERD, and history of esophageal web s/p dilation.
Recommend:
1. NPO due to current KULWANT
2. Aspiration Risk Hydration Protocol to allow sips of water when awake/alert with nursing supervision after oral care
3. Medications crushed in puree
4. Dysphagia re-evaluation if/when KULWANT improves.
[2024-11-27] MEDS: DEXTROSE 50% SYRINGE 12.5 GRAMS IV (11:54)
--- NOTE | 2024-11-27 12:06 | PTCARENOTE ---
Pt's daughter Arlen called for update. She is aware that she remains lethargic, is no longer requiring vasopressors, was hypoglycemic and provided treatment and that she does not maintain alertness and is an aspiration risk. We will crush
essential medications in applesauce per SR. MANAGER CORPORATE COMMUNICATIONS. Daughter wanted to be notified should she decline so her and her brother could drive up from [place].
[2024-11-27 12:26] LABS: Glucose - Point of Care 133 mg/dl (70-99)
--- NOTE | 2024-11-27 13:21 | W.PN.NEPH.PH ---
Today's Communication / Plan
-
follow lab s
change to NS later today
Assessment/Plan
-
IMP:
Shock--possibly due to hypovolemia or acute blood loss from bleeding (patel)
Acute Anemia
JUANA on CKD IV with Metabolic Acidosis-cr 2, Dr Danielson
Severe met acidosis-mixed, A gap 20
Chronic HFpEF
DM-II with Hypoglycemia
History of DVT s/p IVCF
Diabetes mellitus type 2
Hypertension
Hyperlipidemia
CAD
h/o C diff
h/o DVT
NOn obst K stone on right kidney on CT
Plan:
A/w weakness, hypotension and JUANA
JUANA-suspect prerenal vs ATN from hypotension
cr improving with IVF but oliguric with patel
no emergent need of HD
She previously refused HD but no clear decision was made
gross hematuria from patel , CT shows only non obst K stone, no intervention per , urine clearing
severe met acidosis- improving will change to NS
hypocalcemia-replace and check vit d level
wt is increasing but seem euvolemic, echo normal EF
abx per primary
BP stable off pressors
avoid nephrotoxins, hold farxiga and lasix still
spoke with son on phone and reviewed that her renal function improving and no need of HD currently
but he is aware that she likely not good candidate for group home HD as her QOL already poor in [place], WC bound from discussion on 11/26
dose meds renally
-
-
Date of Service: November 27, 2024
CC / HPI / ROS
-
Chief Complaint:
Juana with CKD
History of Present Illness:
cr improving to 5.4, UOP oliguric
wt is up
mat acidosis improving to 21 on bicarb IVF
hb stable at 8.4, jose a low 6.6
Review of Systems:
no cp or sob at rest
improving but still slow to respond
still on warm blanket for hypothermia
Labs
-
Labs:
WBC 7.7 10^3/uL (4.8-10.8) 11/27/24 03:11
RBC 2.76 10^6/uL (4.20-5.40) L 11/27/24 03:11
Hgb 8.4 g/dL (12.0-16.0) L 11/27/24 03:11
Hct 25.3 % (37.0-47.0) L 11/27/24 03:11
Plt Count 216 10^3/uL (130-400) 11/27/24 03:11
eGFR 7.53 11/27/24 03:11
Phosphorus 5.8 mg/dl (2.5-4.5) H 11/27/24 03:11
Sat-Y-Pucpnipvpya Pept Cancelled 11/26/24 04:03
Albumin 2.3 g/dl (3.5-5.0) L 11/27/24 03:11
Physical Exam
-
Vital Signs:
Vital Signs
Temp Pulse Resp BP Pulse Ox
96.3 F L 69 17 113/56 99
11/27/24 12:00 11/27/24 10:30 11/27/24 10:30 11/27/24 10:00 11/27/24 10:30
Cardiovascular:: Regular rate and rhythm
Respiratory:: Bilateral: Coarse
Lung Excursion:: Normal
Abdomen:: Nontender and Soft
Bowel Sounds:: Normal
Extremity Edema:: +1: Bilateral:
Patel Catheter: Yes
[2024-11-27 13:59] LABS: Glucose - Point of Care 58 mg/dl (70-99)
[2024-11-27 14:04] LABS: Glucose - Point of Care 113 mg/dl (70-99)
[2024-11-27 14:46] LABS: Glucose - Point of Care 81 mg/dl (70-99)
[2024-11-27 16:30] LABS: Glucose - Point of Care 90 mg/dl (70-99)
[2024-11-27 16:36] LABS: Venous Blood Gas B.E. -0.1 mmol/L (-4 to +4); Venous Blood Gas O2 Sat % 97.1 %
[2024-11-27 16:43] LABS: Glucose - Point of Care 61 mg/dl (70-99)
[2024-11-27 16:58] LABS: Blood Urea Nitrogen 78 mg/dl (7-17); Calcium 7.6 mg/dl (8.4-10.2); Carbon Dioxide 27 mmol/L (22-30); Chloride 101 mmol/L (98-107); Estimated Creatinine Clearance 7 ml/min; Glucose 72 mg/dl (70-99); Potassium 3.7 mmol/L (3.5-5.1); Sodium 135 mmol/L (135-145); eGFR 7.53
[2024-11-27] MEDS: NSS 1000 IV (17:03)
[2024-11-27] MEDS: FLEXBUMIN 100 IV (17:12)
[2024-11-27 18:17] LABS: Glucose - Point of Care 83 mg/dl (70-99)
[2024-11-27] MEDS: LIPITOR PO (19:11)
--- NOTE | 2024-11-27 19:11 | PTCARENOTE ---
@ 1618 glucose from femoral TL CVC was 90, PCT performed finger stick & glucose resulted 61, Chemistry resulted 72. No treatment for hypoglycemia was performed at this time. Pt responsive.
[2024-11-27 20:53] LABS: Glucose - Point of Care 81 mg/dl (70-99)
[2024-11-27] MEDS: FERROUS SULFATE ORAL LIQUID 300 MG PO (21:28)
[2024-11-27] MEDS: SENOKOT PO (21:28)
[2024-11-27] MEDS: ELIQUIS 2.5 MG PO (21:28)
--- NOTE | 2024-11-27 22:27 | GLUCOSE ---
Addendum entered by Ash Roberts RN 11/28/24 02:59:
0300 blood glucose was 100
Addendum entered by Ash Roberts RN 11/27/24 23:51:
glucose at 2339 was 128
Original Note:
SITUATION:
q2h glucose protocol- maintained 2041 glucose was 81 2026 glucose was 73- well recheck at 0300- pm Carlo munoz.
BACKGROUND:
ASSESSMENT:
RECOMMENDATION:
[2024-11-27] MEDS: LANTUS SC (22:30)
--- NOTE | 2024-11-27 23:12 | PTCARENOTE ---
ax2-2slow speech- bear hugger to maintain temp- bp wnl off levo . room air. sinus- q2h glucose protocol for hypoglycemic episode during day shift. Mejia with minimal output- sediment. restarted Eliquis- no bleeding in urine
[2024-11-27 23:50] LABS: Glucose - Point of Care 128 mg/dl (70-99)
[2024-11-28] VITALS (29 sets, daily range): BP systolic 110–161; BP diastolic 45–82; BMI 31.1
[2024-11-28] MEDS: NOVOLOG FLEXPEN-MODERATE RESISTANCE SC ×4 (00:21→17:57)
--- NOTE | 2024-11-28 00:21 | PTCARENOTE ---
chg bath given with patel care- small loose bm- patel with very little output. bear hugger still required for temp- bp wnl off levo
--- NOTE | 2024-11-28 02:59 | PTCARENOTE ---
bear hugger off. bp wnl sinus- blood sugars have normalized after hypoglycemic episode during day shift. patel with minimal output. see i/o's
[2024-11-28 03:09] LABS: Glucose - Point of Care 100 mg/dl (70-99)
[2024-11-28 04:04] LABS: Hematocrit 23.3 % (37.0-47.0); Hemoglobin 7.7 g/dL (12.0-16.0); Mean Corp Hgb Conc. 33.0 g/dL (33.0-37.0); Mean Corpuscular Volume 94.0 fL (81.0-99.0); Platelet Count 186 10^3/uL (130-400); Red Cell Dist. Width 14.6 % (11.5-14.5)
[2024-11-28] MEDS: SYNTHROID 25 MCG PO (04:33)
[2024-11-28 04:38] LABS: ALT (SGPT) < 10 U/L (0-35); AST (SGOT) 13 U/L (14-36); Albumin 2.6 g/dl (3.5-5.0); Alkaline Phosphatase 58 U/L (38-126); Blood Urea Nitrogen 76 mg/dl (7-17); Calcium 7.7 mg/dl (8.4-10.2); Carbon Dioxide 24 mmol/L (22-30); Chloride 104 mmol/L (98-107); Estimated Creatinine Clearance 8 ml/min; Glucose 92 mg/dl (70-99); Magnesium 2.1 mg/dl (1.6-2.3); Potassium 3.6 mmol/L (3.5-5.1); Sodium 138 mmol/L (135-145); Total Protein 5.4 g/dl (6.3-8.2); eGFR 7.88
[2024-11-28 04:53] LABS: Vitamin D, 25-OH*** < 12.8 ng/mL (30-80)
[2024-11-28 04:55] LABS: Troponin I 0.067 ng/ml
[2024-11-28 05:17] LABS: Glucose - Point of Care 114 mg/dl (70-99)
[2024-11-28] MEDS: FERROUS SULFATE ORAL LIQUID 300 MG PO ×2 (07:28→22:09)
[2024-11-28] MEDS: PROTONIX IV 40 MG IV (07:28)
[2024-11-28] MEDS: TYLENOL ORAL SOLUTION 650 MG PO (07:28)
[2024-11-28] MEDS: FLOMAX 0.4 MG PO (07:29)
[2024-11-28] MEDS: MIRALAX PO (07:29)
[2024-11-28] MEDS: NSS (PRESERVATIVE FREE) 10 ML IV (07:29)
[2024-11-28] MEDS: ELIQUIS 2.5 MG PO ×2 (07:29→22:09)
[2024-11-28] MEDS: VITAMIN B-12 1000 MCG PO (07:29)
[2024-11-28 08:24] LABS: Glucose - Point of Care 73 mg/dl (70-99)
--- NOTE | 2024-11-28 08:40 | PTOTSP ---
Speech Language Pathology
Pt seen for dysphagia tx. RN reported pt tolerated meds in puree and liquid tylenol, but began coughing after liquid iron and complaining of nausea. Weak, strained vocal quality noted, which pt reported is not baseline. Decreased breath support
noted, impacting vocal intensity and speech intelligibility. Seen with ice chip. After 1 ice chip, prolonged coughing noted. Pt complaining of nausea. Provided sip of water x2, which was tolerated. Provided 1/2 tsp of puree with delayed
coughing. Unsure if coughing related to aspiration or nausea or other. Recommend instrumental swallowing assessment.
Recommend:
1. NPO
2. Flexible endoscopic evaluation of swallowing (FEES) if in line with GOC
3. Aspiration Risk Hydration Protocol to allow sips of water when awake/alert with nursing supervision after oral care
4. Medications crushed in puree
5. WELT WHEELER to continue to follow
--- NOTE | 2024-11-28 09:10 | CM ---
Addendum entered by Monie Thayer 11/28/24 10:07:
Patient son spoke with physician and update provided. Patient son stated that he works with his sister and is the primary contact at this time.
Original Note:
Patient seen at bedside with physician. Patient not answering physician questions. Speech therapy also present. Physicians to review medical treatment plan. CM will continue to follow for discharge planning needs.
Plan; return to SNF when medically appropriate.
[2024-11-28] MEDS: NSS 1000 IV (09:18)
[2024-11-28] MEDS: ROCEPHIN 1000 MG IV (09:19)
[2024-11-28] MEDS: STERILE WATER FOR INJECTION 10 ML IV (09:19)
--- NOTE | 2024-11-28 09:29 | W.PN.NEPH.PH ---
Today's Communication / Plan
-
follow BMP
Assessment/Plan
-
IMP:
Shock--possibly due to hypovolemia or acute blood loss from bleeding (patel)
JUANA on CKD IV baseline Cr 2.0 (KV)
Severe met acidosis-mixed, A gap 20
Chronic HFpEF
DM-II with Hypoglycemia
History of DVT s/p IVCF
Diabetes mellitus type 2
Hypertension
Hyperlipidemia
CAD
Nonobst Kidney stone on right kidney on CT
anemia
Plan:
follow BMP
transfuse prn PRBC
IVF light given poor po
Not a good candidate for HD. this was discussed with son previously by Dr. Danielson.
she is hospice appropriate, at least palliative care
prognosis is guarded
remains high risk situation
-
-
Date of Service: November 28, 2024
CC / HPI / ROS
-
Chief Complaint:
Juana with CKD
History of Present Illness:
cr improving to 5.2, UOP oliguric
metabolic acidosis better
hgb lower at 7.7
BP stable
Review of Systems:
no cp or sob at rest
no pain
Labs
-
Labs:
WBC 6.2 10^3/uL (4.8-10.8) 11/28/24 03:19
RBC 2.48 10^6/uL (4.20-5.40) L 11/28/24 03:19
Hgb 7.7 g/dL (12.0-16.0) L 11/28/24 03:19
Hct 23.3 % (37.0-47.0) L 11/28/24 03:19
Plt Count 186 10^3/uL (130-400) 11/28/24 03:19
Sodium 138 mmol/L (135-145) 09/12/25 03:19
Potassium 3.6 mmol/L (3.5-5.1) 11/28/24 03:19
Chloride 104 mmol/L (98-107) 11/28/24 03:19
Carbon Dioxide 24 mmol/L (22-30) 11/28/24 03:19
BUN 76 mg/dl (7-17) H 11/28/24 03:19
Creatinine 5.2 mg/dL (0.6-1.0) H* 11/28/24 03:19
eGFR 7.88 11/28/24 03:19
Glucose 92 mg/dl (70-99) 11/28/24 03:19
Calcium 7.7 mg/dl (8.4-10.2) L 11/28/24 03:19
Phosphorus 5.4 mg/dl (2.5-4.5) H 11/28/24 03:19
Nkl-N-Ozzsocufpof Pept Cancelled 11/26/24 04:03
Albumin 2.6 g/dl (3.5-5.0) L 11/28/24 03:19
Physical Exam
-
Vital Signs:
Vital Signs
Temp Pulse Resp BP Pulse Ox
97.7 F 87 22 146/64 97
11/28/24 08:27 11/28/24 07:00 11/28/24 07:00 11/28/24 07:00 11/28/24 06:30
Cardiovascular:: Regular rate and rhythm
Respiratory:: Bilateral: Coarse
Lung Excursion:: Normal
Abdomen:: Nontender and Soft
Bowel Sounds:: Normal
Extremity Edema:: +1: Bilateral:
--- NOTE | 2024-11-28 09:46 | PTCARENOTE ---
Assumed care of pt from night RN. AAOx3. Pt drowsy but arousable to verbal stimuli. Slow to respond. NSR on nurse monitoring, HR 80s-90s. SpO2 97% on room air. Remains off amy hugger, rectal temp 97.9. VSS. Pt began dry heaving/coughing after
administration of oral liquid ferrous sulfate. Pt stated she felt nauseous. MILLER APPRENTICE at bedside to evaluate. Pt had another episode of dry heaving/coughing after ice chip with MILLER APPRENTICE. FEES study ordered. IV zofran ordered. NS infusing through L femoral vein
triple lumen. Plan to d/c today and place midline. GOC discussions ongoing with family. Pt resting in bed, call deleon in reach. Assessment documented.
--- NOTE | 2024-11-28 10:18 | W.PN.HOSP.TC ---
Addendum entered and electronically signed by Sienna Wallace MD 11/28/24 10:28:
wounds--POA--Sacrum Stage 2 Pressure Injury, Bilateral Heels Stage 1 Pressure Injury
Original Note:
Today's Communication/Plan
-
blood transfusion
IVF
ongoing GOC discussion
Assessment / Plan
Assessment / Plan
pt is an 79 year olod female
Shock--possibly due to hypovolemia or acute blood loss from bleeding (patel)--will follow H&H and transfuse if <8--concern for septic shock due to UTI vs PNA--but normal WBC and normal lactic--off levophed and dobutamine--agree with IVF--apprec
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
Acute Anemia--Likely due to blood loss from hematuria--cont patel--apprec urology--INR 1.53--LDH 175, haptoglobin pending--covering for possible UTI--Rocephin--urine culture with >100K mixed issac--hgb 7.7, consent obtained from son (Neville Huitron) for
blood transfusion
XANDER on CKD IV with Metabolic Acidosis- Suspect ATN secondary to hypotension/shock-- SCr = 7.2 compared to baseline of 2.0, improving to 5.2 but still above baseline--apprec renal, cont IVF with bicarb--hold diuresis- Patient has apparently discussed
possibility of HD in the past and has declined--poor candidate for HD moving forward
Chronic HFpEF--without exacerbation despite elevated proBNP--on room air currently--echo with preserved EF, otherwise no issues--I/Os--holding diuretics
DM-II with Hypoglycemia - Hold all insulins acutely-- follow fingerstick glucose--HGB A1C 6.5%
History of DVT -- on eliquis, holding for now- SCDs. IVC filter (remote) in place.
Code Status-- DNR--Dr. Tony spoke with son in [place]
Total Critical Care Time 35 minutes. I was immediately available to the patient and staff. I personally examined, reviewed labs, diagnostic images/reports, interpretations, treatment plans, discussed patient care with other providers and family
or caregivers (if patient is unable to make decisions), entered orders as appropriate and documented the medical record.
spoke with son, Neville, started explaining hospice, comfort--he agreed to blood transfusion, wants to come up to see his Mom (will be here by Sunday)--confirms DNR status
Anticipated Discharge: > 48 hours
Subjective/Interval History
-
Date of Service: November 28, 2024
pt not verbal with me--sitting upright in bed with basin by her side--nauseous
Objective Data
-
Labs:
Laboratory Results
11/28/24
03:19
WBC 6.2
Hgb 7.7 L
Hct 23.3 L
Plt Count 186
Sodium 138
Potassium 3.6
Chloride 104
Carbon Dioxide 24
BUN 76 H
Creatinine 5.2 H*
Glucose 92
Calcium 7.7 L
Total Bilirubin 0.6
AST 13 L
ALT < 10
Alkaline Phosphatase 58
Vital Signs:
max temp for 24 hours
11/28/24
04:13
Temp 97.6 F
Vital Signs
Temp Pulse Resp BP Pulse Ox
97.7 F 87 22 146/64 97
11/28/24 08:27 11/28/24 07:00 11/28/24 07:00 11/28/24 07:00 11/28/24 06:30
I&O
11/27/24 11/28/24 11/29/24
06:59 06:59 06:59
Intake Total 3403.0 / 3528.0 1830 / 1830
Output Total 400 / 400 411 / 411
Balance 3003.0 / 3128.0 1419 / 1419
Review of Systems
-
Unable to obtain full review of systems at this time due to: Other (nonverbal with me)
Physical Exam
-
General: Well Developed, Well Nourished and No Apparent Distress
HEENT: Normocephalic and Atraumatic
Respiratory: Clear to Auscultation; Negative Wheezes or Rhonchi
Cardiac: Regular Rhythm and S1/S2; Negative Murmur
GI: Soft, Nontender, Nondistended and Normal Bowel Sounds
Musculoskeletal: No Clubbing, No Cyanosis and No Edema
Neuro: Awake
Psych: Calm
[2024-11-28] MEDS: ZOFRAN 4 MG IV (10:49)
[2024-11-28 12:22] LABS: Glucose - Point of Care 148 mg/dl (70-99)
[2024-11-28 17:56] LABS: Glucose - Point of Care 144 mg/dl (70-99)
[2024-11-28] MEDS: LIPITOR 10 MG PO (17:57)
--- NOTE | 2024-11-28 19:29 | W.PN.URO.CBU ---
Today's Communication / Plan
-
No persistent hematuria to explain HGB decrease
Can remove patel per primary service when appropriate
Abx for 5-7 days for possible UTI/hemorrhagic cystitis
Assessment / Plan
-
79F admitted with shock, hypotension, anemia
Found to have gross hematuria on patel placement
- Gross hematuria nearly resolved shortly after catheter placement with tea colored/light yellow urine in tubing and no significant bleeding since
- Continued decrease in HGB now requiring transfusion with clear urine suggests alternate source of anemia
- CT showed no obstructing stone, hydronephrosis, renal tumor, bladder mass, or blood products in urinary tract
- Small nonobstructing R ureteral stone is noncontributory
- Possible hemorrhagic cystits/UTI
- Culture with 100k mixed issac - no definitive organism identified but would be reasonable to treat with 5-7 day abx course as possible infection
- Okay to remove patel and stop antibiotics according to goals of care
Diagnosis
-
Date of Service: November 28, 2024
-
Patient Diagnosis:
hematuria
UTI
Post Op Day:
Subjective
-
no complaints
Objective
-
Vital Signs
Temp Pulse Resp BP Pulse Ox
97.2 F 82 16 156/70 94
11/28/24 15:44 11/28/24 17:30 11/28/24 17:30 11/28/24 17:00 11/28/24 18:21
Intake and Output
11/27/24 11/28/24 11/29/24
06:59 06:59 06:59
Intake Total 3403.0 / 3528.0 1830 / 1890 850 / 850
Output Total 400 / 400 411 / 411 125 / 125
Balance 3003.0 / 3128.0 1419 / 1479 725 / 725
Intake:
Oral fluids 0 / 0
IV fluids (Total) 3142.0 / 3242.0 1780 / 1840 600 / 600
Bicarb 900 / 900
D5w 1,000 ml @ 100 mls/hr IV . 997 / 997
[id number] JOSELITO with Sodium
Bicarbonate 150 Meq Rx#:
[id number]
DOBUTAMINE 19.9 / 19.9
LEVOPHED 225.1 / 225.1
NSS 1000 / 1000
Nss 1,000 ml @ 60 mls/hr IV . 780 / 840 600 / 600
[id number] JOSELITO Rx#:[id number]
Sterile Water For Injection 1000 / 1000
1000 ml 1,000 ml @ 100 mls/hr
IV .[id number] JOSELITO with Sodium
Bicarbonate 150 Meq Rx#:
[id number]
IV piggybacks 261 / 286 50 / 50
Blood Product Amount Infused ( 250 / 250
mL)
Packed Rbc Leukoreduced Unit 250 / 250
[id number]
Output:
Urine, Patel 400 / 400 411 / 411 125 / 125
Laboratory Results
11/28/24 03:19
11/28/24 03:19
Physical Exam
-
General - no acute distress
Chest - clear
Abdomen - soft, non-tender
Patel in place, clear urine
[2024-11-28 21:59] LABS: Glucose - Point of Care 140 mg/dl (70-99)
[2024-11-28] MEDS: SENOKOT 17.2 MG PO (22:09)
[2024-11-28] MEDS: LANTUS 0.07 UNITS SC (22:18)
[2024-11-29] VITALS (14 sets, daily range): BP systolic 100–166; BP diastolic 59–105; BMI 32.1
[2024-11-29] MEDS: NSS 1000 IV (02:04)
[2024-11-29] MEDS: ZOFRAN 4 MG IV (02:39)
[2024-11-29 04:36] LABS: Hematocrit 29.6 % (37.0-47.0); Hemoglobin 9.9 g/dL (12.0-16.0); Mean Corp Hgb Conc. 33.4 g/dL (33.0-37.0); Mean Corpuscular Volume 93.1 fL (81.0-99.0); Platelet Count 184 10^3/uL (130-400); Red Cell Dist. Width 15.9 % (11.5-14.5)
[2024-11-29 04:46] LABS: Blood Urea Nitrogen 72 mg/dl (7-17); Calcium 8.0 mg/dl (8.4-10.2); Carbon Dioxide 23 mmol/L (22-30); Chloride 108 mmol/L (98-107); Estimated Creatinine Clearance 8 ml/min; Glucose 108 mg/dl (70-99); Magnesium 1.9 mg/dl (1.6-2.3); Potassium 3.7 mmol/L (3.5-5.1); Sodium 140 mmol/L (135-145); eGFR 8.06
[2024-11-29] MEDS: SYNTHROID 25 MCG PO (06:23)
--- NOTE | 2024-11-29 06:38 | PTCARENOTE ---
Assumed care of pt from previous RN. Pt in bed. AAOx2, forgetful to time, flat affect, garbled speech. SR on tele. pulse ox 97-100% on 2.5 L. Scattered crackles at bases. Pt denies complaints of pain. Pt coughing / dry heaving and c/o nausea,
medicated with prn zofran. NS infusing through L midline. pt incont brown/green loose bm. Call deleon within reach.
[2024-11-29 07:40] LABS: Glucose - Point of Care 83 mg/dl (70-99)
--- NOTE | 2024-11-29 08:05 | W.PN.HOSP.TC ---
Today's Communication/Plan
-
transfer to med/surg
Assessment / Plan
Assessment / Plan
pt is an 79 year olod female
Shock (resolved)--possibly due to hypovolemia or acute blood loss from bleeding (patel)--s/p 1 unit pRBC with improvement in HGB to 9.9, no further bleeding--concern for septic shock due to UTI vs PNA--but normal WBC and normal lactic--off
levophed and dobutamine--agree with IVF--apprec renal input/urology/core oven tender---CT scan abdom/pelvis concern for RLL pna, otherwise no acute issues
Acute Anemia--Likely due to blood loss from hematuria--cont patel--apprec urology--INR 1.53--LDH 175, haptoglobin pending--covering for possible UTI--Rocephin--urine culture with >100K mixed issac--hgb 7.7 on 11/28/24 received 1 unit pRBC with
improvement to 9.9
XANDER on CKD IV with Metabolic Acidosis- Suspect ATN secondary to hypotension/shock-- SCr = 7.2 compared to baseline of 2.0, improving to 5.2 but still above baseline--apprec renal, cont IVF with bicarb--hold diuresis- Patient has apparently discussed
possibility of HD in the past and has declined--poor candidate for HD moving forward--no changes on today's (11/29/24) labs
Chronic HFpEF--without exacerbation despite elevated proBNP--on room air currently--echo with preserved EF, otherwise no issues--I/Os--holding diuretics
DM-II with Hypoglycemia - Hold all insulins acutely-- follow fingerstick glucose--HGB A1C 6.5%
History of DVT -- on eliquis, holding for now- SCDs. IVC filter (remote) in place.
Code Status-- DNR--Dr. Tony spoke with son in [place]
transfer to med/surg
spoke with son, Neville, started explaining hospice, comfort--he agreed to blood transfusion, wants to come up to see his Mom (will be here by Sunday)--confirms DNR status
Anticipated Discharge: > 48 hours
Subjective/Interval History
-
Date of Service: November 29, 2024
pt still with limited responses to me
Objective Data
-
Labs:
Laboratory Results
11/29/24
03:48
WBC 7.4
Hgb 9.9 L D
Hct 29.6 L
Plt Count 184
Sodium 140
Potassium 3.7
Chloride 108 H
Carbon Dioxide 23
BUN 72 H
Creatinine 5.1 H*
Glucose 108 H
Calcium 8.0 L
Vital Signs:
max temp for 24 hours
11/28/24
19:44
Temp 97.9 F
Vital Signs
Temp Pulse Resp BP Pulse Ox
97.6 F 82 19 131/71 96
11/29/24 07:24 11/29/24 04:00 11/29/24 04:00 11/29/24 04:00 11/29/24 02:30
I&O
11/28/24 11/29/24 11/30/24
06:59 06:59 06:59
Intake Total 1830 / 1890 970 / 970
Output Total 411 / 411 250 / 250
Balance 1419 / 1479 720 / 720
Review of Systems
-
All other systems: Reviewed and negative
Physical Exam
-
General: Appears Chronically Ill
HEENT: Normocephalic, Atraumatic and Oxygen
Respiratory: Clear to Auscultation; Negative Wheezes or Rhonchi
Cardiac: Regular Rhythm and S1/S2; Negative Murmur
GI: Soft, Nontender, Nondistended and Normal Bowel Sounds
Musculoskeletal: No Clubbing, No Cyanosis and No Edema
Skin: Other (no change with black eschar on dorsum of right great toe)
Neuro: Awake
Psych: Calm
[2024-11-29] MEDS: NOVOLOG FLEXPEN-MODERATE RESISTANCE SC ×3 (08:19→16:41)
[2024-11-29] MEDS: TYLENOL ORAL SOLUTION 650 MG PO ×2 (08:19→17:55)
[2024-11-29] MEDS: PROTONIX IV 40 MG IV (08:20)
[2024-11-29] MEDS: NSS (PRESERVATIVE FREE) 10 ML IV (08:20)
[2024-11-29] MEDS: VITAMIN B-12 1000 MCG PO (08:20)
[2024-11-29] MEDS: FERROUS SULFATE ORAL LIQUID 300 MG PO ×2 (08:20→20:46)
[2024-11-29] MEDS: ELIQUIS 2.5 MG PO ×2 (08:20→20:45)
[2024-11-29] MEDS: FLOMAX 0.4 MG PO (08:20)
[2024-11-29] MEDS: MIRALAX 17 GRAMS PO (08:20)
--- NOTE | 2024-11-29 09:45 | W.PN.NEPH.PH ---
Today's Communication / Plan
-
follow BMP
Assessment/Plan
-
IMP:
Shock--possibly due to hypovolemia or acute blood loss from bleeding (patel)
JUANA on CKD IV baseline Cr 2.0 (KV)
Severe met acidosis-mixed, A gap 20
Chronic HFpEF
DM-II with Hypoglycemia
History of DVT s/p IVCF
Diabetes mellitus type 2
Hypertension
Hyperlipidemia
CAD
Nonobst Kidney stone on right kidney on CT
anemia
Plan:
follow BMP
transfuse prn PRBC
off IVF, volume status stable, euvolemic-slightly hypervolemic only
await son, possible hospice
-
-
Date of Service: November 29, 2024
CC / HPI / ROS
-
Chief Complaint:
Juana with CKD
History of Present Illness:
JUANA/Cr slightly better 5.1
Hgb up to 9.9
metabolic acidosis better
BP stable off pressors
Review of Systems:
no cp or sob at rest
no pain
Labs
-
Labs:
WBC 7.4 10^3/uL (4.8-10.8) 11/29/24 03:48
RBC 3.18 10^6/uL (4.20-5.40) L 11/29/24 03:48
Hgb 9.9 g/dL (12.0-16.0) L D 11/29/24 03:48
Hct 29.6 % (37.0-47.0) L 11/29/24 03:48
Plt Count 184 10^3/uL (130-400) 11/29/24 03:48
Sodium 140 mmol/L (135-145) 11/29/24 03:48
Potassium 3.7 mmol/L (3.5-5.1) 11/29/24 03:48
Chloride 108 mmol/L (98-107) H 11/29/24 03:48
Carbon Dioxide 23 mmol/L (22-30) 11/29/24 03:48
BUN 72 mg/dl (7-17) H 11/29/24 03:48
Creatinine 5.1 mg/dL (0.6-1.0) H* 11/29/24 03:48
eGFR 8.06 11/29/24 03:48
Glucose 108 mg/dl (70-99) H 11/29/24 03:48
Calcium 8.0 mg/dl (8.4-10.2) L 11/29/24 03:48
Phosphorus 5.4 mg/dl (2.5-4.5) H 11/28/24 03:19
Wsc-C-Ldhonptdfmg Pept Cancelled 11/26/24 04:03
Albumin 2.6 g/dl (3.5-5.0) L 11/28/24 03:19
Physical Exam
-
Vital Signs:
Vital Signs
Temp Pulse Resp BP Pulse Ox
97.6 F 71 16 117/72 96
11/29/24 07:24 11/29/24 09:23 11/29/24 09:23 11/29/24 09:23 11/29/24 09:23
Cardiovascular:: Regular rate and rhythm
Respiratory:: Bilateral: Coarse
Lung Excursion:: Normal
Abdomen:: Nontender and Soft
Bowel Sounds:: Normal
Extremity Edema:: +2: Bilateral:
[2024-11-29] MEDS: STERILE WATER FOR INJECTION 10 ML IV (09:48)
[2024-11-29] MEDS: ROCEPHIN 1000 MG IV (09:48)
--- NOTE | 2024-11-29 10:13 | PTCARENOTE ---
Updated assessment, vital sign trends ongoing and as documented. Hospitalist team at bedside this am. Continue follow up with consult teams during rounds. Family/Son at bedside questioning plan of cares, asking questions related to HD. Update with
team and follow up at bedside. Continue supportive cares.
--- NOTE | 2024-11-29 11:14 | W.PN.UPDATE ---
Update Note
Progress Note Update
RTSP and spoke to son at length. The patient was awake and participated in the conversation. We discussed dialysis. We discussed the logistics as well as day-to-day issues with dialysis. We discussed how patients may be washed out afterwards and
how being on chronic dialysis does result in a loss of quality of life. As she is also jail bound, her overall performance status will also impact how she tolerates dialysis. We also discussed that dialysis does not address her concurrent
medical issues such as heart failure which will still follow its own natural progression. We discussed from kidney failure as well which is typically painless. We also discussed palliative care which may be an option as well. The son was in
agreement with less aggressive care overall but clearly will allow his mother to make her decision. She also seem inclined to be more conservative in terms of overall care. I did not ask for a full decision currently but they understand that a
decision will need to be made at some point.
Critical care time spent 31 minutes
[2024-11-29] MEDS: DEXTROSE 50% SYRINGE 12.5 GRAMS IV ×3 (12:56→14:16)
[2024-11-29 13:00] LABS: Glucose - Point of Care 34 mg/dl (70-99)
[2024-11-29] MEDS: D5/0.9% SODIUM CHLORIDE 1000 IV (13:18)
[2024-11-29 13:24] LABS: Glucose - Point of Care 26 mg/dl (70-99)
[2024-11-29 13:26] LABS: Glucose - Point of Care 57 mg/dl (70-99)
[2024-11-29 14:02] LABS: Glucose - Point of Care 63 mg/dl (70-99)
[2024-11-29 14:41] LABS: Glucose - Point of Care 62 mg/dl (70-99)
[2024-11-29 14:43] LABS: Glucose - Point of Care 79 mg/dl (70-99)
--- NOTE | 2024-11-29 15:58 | PTCARENOTE ---
Addendum entered by Kenia Gomez RN 11/29/24 20:11:
Sugar recheck per protocol at 1630 110, sugar check at 1830 219. IVF infusing through L midline.
Original Note:
Received patient as transfer from ICU into room 2134. Patient AAO2-3, drowsy, denies any concerns at time of transfer. Blood sugar on transfer 34, patient drowsy, unable to drink orange juice, MD notified and PRN IV dextrose given - see MAR. Repeat
AccuCheck 15 minutes later 26, sugar verified on second AccuCheck machine 57. Additional PRN IV dextrose given and MD notified, IVF ordered. Repeat AccuCheck 63, MD aware and additional IV dextrose administered - see MAY. Repeat AccuCheck 62,
AccuCheck verified on second machine 79. MD aware, stated to follow hypoglycemic protocol. Patient drowsy but wakes to verbal stimuli, denies concerns at this time. Patient changed for dark soft inc BM, heme test negative. Sacrum and heel foams
replaced, IVF infusing through L midline. Patient fingers cyanotic/blue, cool to touch, patient states decreased sensation when assessed by this RN. POX taken on ear 100% 4L. aware, no new orders at this time.
[2024-11-29 16:30] LABS: Glucose - Point of Care 110 mg/dl (70-99)
[2024-11-29] MEDS: LIPITOR 10 MG PO (17:00)
[2024-11-29 18:34] LABS: Glucose - Point of Care 219 mg/dl (70-99)
[2024-11-29 21:52] LABS: Glucose - Point of Care 246 mg/dl (70-99)
[2024-11-29] MEDS: SENOKOT 17.2 MG PO (22:55)
[2024-11-30] MEDS: TYLENOL ORAL SOLUTION 650 MG PO ×2 (01:50→06:33)
[2024-11-30 03:01] LABS: Glucose - Point of Care 289 mg/dl (70-99)
[2024-11-30] MEDS: D5/0.9% SODIUM CHLORIDE 1000 IV ×2 (03:10→17:02)
[2024-11-30] MEDS: SYNTHROID 25 MCG PO (05:05)
[2024-11-30 08:02] VITALS: BP 153/79
[2024-11-30 08:02] LABS: Glucose - Point of Care 312 mg/dl (70-99)
[2024-11-30] MEDS: MIRALAX PO (08:04)
[2024-11-30] MEDS: FERROUS SULFATE ORAL LIQUID 300 MG PO (08:05)
[2024-11-30] MEDS: ZOFRAN 4 MG IV ×2 (08:05→20:40)
[2024-11-30] MEDS: NSS (PRESERVATIVE FREE) 10 ML IV (08:05)
[2024-11-30] MEDS: VITAMIN B-12 1000 MCG PO (08:05)
[2024-11-30] MEDS: FLOMAX 0.4 MG PO (08:05)
[2024-11-30] MEDS: PROTONIX IV 40 MG IV (08:05)
[2024-11-30] MEDS: ELIQUIS 2.5 MG PO ×2 (08:06→20:39)
[2024-11-30] MEDS: NOVOLOG FLEXPEN-MODERATE RESISTANCE 7 UNITS SC (08:06)
[2024-11-30 08:07] LABS: Hematocrit 30.6 % (37.0-47.0); Hemoglobin 10.1 g/dL (12.0-16.0); Mean Corp Hgb Conc. 33.0 g/dL (33.0-37.0); Mean Corpuscular Volume 94.2 fL (81.0-99.0); Platelet Count 168 10^3/uL (130-400); Red Cell Dist. Width 16.1 % (11.5-14.5)
[2024-11-30 08:45] LABS: Blood Urea Nitrogen 67 mg/dl (7-17); Calcium 8.3 mg/dl (8.4-10.2); Carbon Dioxide 18 mmol/L (22-30); Chloride 113 mmol/L (98-107); Estimated Creatinine Clearance 8 ml/min; Glucose 320 mg/dl (70-99); Magnesium 1.8 mg/dl (1.6-2.3); Potassium 2.9 mmol/L (3.5-5.1); Sodium 142 mmol/L (135-145); eGFR 8.46
[2024-11-30] MEDS: ROCEPHIN 1000 MG IV (09:03)
[2024-11-30] MEDS: STERILE WATER FOR INJECTION 10 ML IV (09:03)
--- NOTE | 2024-11-30 09:21 | W.PN.HOSP.TC ---
Addendum entered and electronically signed by Sienna Wallace MD 11/30/24 10:43:
transitioning to comfort measures with eval for inpt hospice tomorrow per hospice
Addendum entered and electronically signed by Sienna Wallace MD 11/30/24 09:59:
consult for hospice placed--spoke with son and family at bedside
Original Note:
Today's Communication/Plan
-
ongoing goals of care discussion--hospice appropriate
Assessment / Plan
Assessment / Plan
pt is an 79 year olod female
Shock (resolved)--possibly due to hypovolemia or acute blood loss from bleeding (patel)--s/p 1 unit pRBC with improvement in HGB to 9.9, no further bleeding--concern for septic shock due to UTI vs PNA--but normal WBC and normal lactic--off
levophed and dobutamine--agree with IVF--apprec renal input/urology/rn operating room---CT scan abdom/pelvis concern for RLL pna, otherwise no acute issues
Acute Anemia--Likely due to blood loss from hematuria--cont patel--apprec urology--INR 1.53--LDH 175, haptoglobin normal at 164--covering for possible UTI--Rocephin--urine culture with >100K mixed issac--hgb 7.7 on 11/28/24 received 1 unit pRBC with
improvement
XANDER on CKD IV with Metabolic Acidosis- Suspect ATN secondary to hypotension/shock-- SCr = 7.2 compared to baseline of 2.0, improving to 5.2 but still above baseline--apprec renal, cont IVF with D5--holding diuresis- Patient has apparently discussed
possibility of HD in the past and has declined--poor candidate for HD moving forward
Chronic HFpEF--without exacerbation despite elevated proBNP--on room air currently--echo with preserved EF, otherwise no issues--I/Os--holding diuretics
DM-II with Hypoglycemia - Hold all insulins acutely-- follow fingerstick glucose--HGB A1C 6.5%--now on D5
History of DVT -- on eliquis, holding for now- SCDs. IVC filter (remote) in place.
Code Status-- DNR--Dr. Tony spoke with son in [place]
transfer to med/surg
11/28 spoke with son, Neville, started explaining hospice, comfort--he agreed to blood transfusion, wants to come up to see his Mom (will be here by Sunday)--confirms DNR status
Dr. Lyon spoke with him 11/29 as well
Anticipated Discharge: 24 - 48 hours
Subjective/Interval History
-
Date of Service: November 30, 2024
pt c/o of being thirsty with pain all over
Objective Data
-
Labs:
Laboratory Results
11/30/24
07:45
WBC 5.7
Hgb 10.1 L
Hct 30.6 L
Plt Count 168
Sodium 142
Potassium 2.9 L
Chloride 113 H
Carbon Dioxide 18 L
BUN 67 H
Creatinine 4.9 H*
Glucose 320 H
Calcium 8.3 L
Vital Signs:
max temp for 24 hours
11/29/24
15:30
Temp 98.2 F
Vital Signs
Temp Pulse Resp BP Pulse Ox
97.9 F 102 16 153/79 100
11/30/24 08:02 11/30/24 08:02 11/30/24 08:02 11/30/24 08:02 11/30/24 08:02
I&O
11/29/24 11/30/24 12/01/24
06:59 06:59 06:59
Intake Total 970 / 970 1240 / 1240
Output Total 250 / 250 550 / 550
Balance 720 / 720 690 / 690
Review of Systems
-
All other systems: Reviewed and negative
Physical Exam
-
General: Appears Chronically Ill
HEENT: Normocephalic, Atraumatic and Oxygen
Respiratory: Clear to Auscultation; Negative Wheezes or Rhonchi
Cardiac: Regular Rhythm and S1/S2; Negative Murmur
GI: Soft, Nontender, Nondistended and Normal Bowel Sounds
Musculoskeletal: No Clubbing and No Cyanosis; Negative No Edema (left arm swollen)
Skin: Other (black eschar dorsum of right great toe)
Neuro: Awake
Psych: Calm
[2024-11-30] MEDS: KCL 270 MEQ IV (10:26)
--- NOTE | 2024-11-30 10:30 | W.PN.NEPH.PH ---
Today's Communication / Plan
-
IVF
Assessment/Plan
-
IMP:
Shock--possibly due to hypovolemia or acute blood loss from bleeding (patel)
JUANA on CKD IV baseline Cr 2.0 (KV)
Severe met acidosis-mixed, A gap 20
Chronic HFpEF
DM-II with Hypoglycemia
History of DVT s/p IVCF
Diabetes mellitus type 2
Hypertension
Hyperlipidemia
CAD
Nonobst Kidney stone on right kidney on CT
anemia
Plan:
follow BMP
transfuse prn PRBC
on IVF as no po intake, volume status stable, euvolemic-slightly hypervolemic only
hospice eval
-
-
Date of Service: November 30, 2024
CC / HPI / ROS
-
Chief Complaint:
Juana with CKD
History of Present Illness:
JUANA/Cr slightly better 4.9
Hgb up to 10.1
metabolic acidosis 18
BP stable off pressors
Review of Systems:
no cp or sob at rest
no pain
not eating
Labs
-
Labs:
WBC 5.7 10^3/uL (4.8-10.8) 11/30/24 07:45
RBC 3.25 10^6/uL (4.20-5.40) L 11/30/24 07:45
Hgb 10.1 g/dL (12.0-16.0) L 11/30/24 07:45
Hct 30.6 % (37.0-47.0) L 11/30/24 07:45
Plt Count 168 10^3/uL (130-400) 11/30/24 07:45
Sodium 142 mmol/L (135-145) 11/30/24 07:45
Potassium 2.9 mmol/L (3.5-5.1) L 11/30/24 07:45
Chloride 113 mmol/L (98-107) H 11/30/24 07:45
Carbon Dioxide 18 mmol/L (22-30) L 11/30/24 07:45
BUN 67 mg/dl (7-17) H 11/30/24 07:45
Creatinine 4.9 mg/dL (0.6-1.0) H* 11/30/24 07:45
eGFR 8.46 11/30/24 07:45
Glucose 320 mg/dl (70-99) H 11/30/24 07:45
Calcium 8.3 mg/dl (8.4-10.2) L 11/30/24 07:45
Phosphorus 5.4 mg/dl (2.5-4.5) H 11/28/24 03:19
Oux-F-Xareprmoqig Pept Cancelled 11/26/24 04:03
Albumin 2.6 g/dl (3.5-5.0) L 11/28/24 03:19
Physical Exam
-
Vital Signs:
Vital Signs
Temp Pulse Resp BP Pulse Ox
97.9 F 102 16 153/79 100
11/30/24 08:02 11/30/24 08:02 11/30/24 08:02 11/30/24 08:02 11/30/24 10:17
Cardiovascular:: Regular rate and rhythm
Respiratory:: Bilateral: Coarse
Lung Excursion:: Normal
Abdomen:: Nontender and Soft
Bowel Sounds:: Normal
Extremity Edema:: +3: Bilateral:
--- NOTE | 2024-11-30 10:34 | HOSPNOTE ---
Hospice referral received. Reviewed chart and spoke to Primary RN. Recommend to initiate comfort measures today and reassess for inpatient hospice eligibility tomorrow. Spoke to son Neville who is in agreement with this plan. He will be available for us
to send consents electronically tomorrow as he does have to head back to [place] today. He reported his sister was trying to come up and see patient but verified they are both in agreement with comfort. CM, Attending and Primary RN updated. Hospice
will continue to follow and assess.
[2024-11-30] MEDS: DILAUDID 0.25 MG IV ×2 (10:58→20:42)
[2024-11-30 12:28] LABS: Glucose - Point of Care 233 mg/dl (70-99)
[2024-11-30] MEDS: NOVOLOG FLEXPEN-MODERATE RESISTANCE 3 UNITS SC (12:32)
--- NOTE | 2024-11-30 12:53 | PTCARENOTE ---
Patient transitioned to comfort care per MD, IVF and AccuCheck/insulin still in place at this time per MD. Mejia order transitioned to end of life. PRN IV Dilaudid added per MD for patient complaints of generalized pain, patient provided complete
bed bath and medicated for whole body pain - see MAY. Sacrum and B/L heel foams in place. Patient AAOx2, drowsy but wakes easily to verbal stimuli, occasionally able to drink nectar thick liquids but poor appetite overall. IVF infusing through L
midline, Mejia draining shadia/blood tinged urine. Family at bedside updated on plan of care.
[2024-11-30] MEDS: NOVOLOG FLEXPEN-MODERATE RESISTANCE 1 UNITS SC (17:02)
[2024-11-30 17:03] LABS: Glucose - Point of Care 163 mg/dl (70-99)
[2024-11-30 21:45] LABS: Glucose - Point of Care 132 mg/dl (70-99)
[2024-11-30 23:00] VITALS: BP 161/76
[2024-12-01] MEDS: DILAUDID 0.25 MG IV ×2 (02:49→09:25)
[2024-12-01 08:34] LABS: Glucose - Point of Care 181 mg/dl (70-99)
[2024-12-01 08:36] VITALS: BP 123/87
[2024-12-01] MEDS: ELIQUIS PO (09:23)
[2024-12-01] MEDS: NOVOLOG FLEXPEN-MODERATE RESISTANCE SC (09:27)
--- NOTE | 2024-12-01 09:39 | HOSPNOTE ---
Spoke with son Neville and he is in agreement with inpatient hospice. Admissions was called and Attending aware of plan. CM will be updated.
--- NOTE | 2024-12-01 10:14 | PTCARENOTE ---
Pt being admitted to inpatient hospice. See flipped chart for documentation.
--- NOTE | 2024-12-01 11:24 | W.DCSUMMARY ---
Discharge Summary
Discharge Data
Date of Admission: 11/26/24
Date of Discharge: 12/01/24
-
Pending Results: No
Hospital Course
Primary diagnosis:
Clinical shock
Acute blood loss anemia
Acute kidney due to chronic kidney disease stage IV
Secondary diagnosis:
Chronic heart failure with preserved EF
Diabetes mellitus type 2
History of DVT
Hospital course:
79-year-old presents from local group home for ataxia and marked hypotension. She was in clinical shock. Suspected hypovolemia/blood loss related with septic shock could not be ruled out. There was a concern about a UTI and pneumonia. She was
put on Levophed and dopamine and was given IV fluids. CT of the abdomen pelvis showed right lower lobe pneumonia concern. Her globin was 7.7 with her most recent baseline of 11.6. She had transfusion support.
Acute medical issues made her renal function worse. She already had chronic kidney disease stage IV and now she has acute kidney injury. Creatinine went up to 7.2 from her baseline of 2.0. It was felt not a candidate for dialysis. She had
declined hemodialysis support in the past. At the current acute organ dysfunction on chronic organ dysfunction and no support of hemodialysis the prognosis was poor. She continued to do poorly. She was transition to inpatient hospice today.
Today she was lethargic. Hard to converse. Very weak. Looks comfortable. Afebrile. Heart rate 104. Blood pressure 123/87. No respiratory distress. Chest anteriorly clear. Abdomen is soft.
Discussed with son-the plan yesterday was comfort measures and transition to hospice today. Hospice team discussed with the son and he signed and heard for hospice today which is appropriate. Discharged to inpatient hospice at [facility].
Consultants on board:
Nephrology-Codie Hagen
Pulmonary-Abraham Velásquez
Urology Ramirez Amezquita
Discharge Plan
-
Patient Disposition: Hospice - Inpatient
Activity Restrictions/Additional Instructions:
Wound Care Instructions Right first and second toes- Apply Betadine daily. Keep open to air
Sacral Stage 2- Clean with normal saline or soap and water and keep covered with silicone border foam. Change Q 48 hours and PRN if soiled
Bilateral heels- Keep covered with foam dressing and keep heels off-loaded with pillows under calves.
Air mattress
Turning schedule
Barrier ointment to perineum PRN
Referrals:
Maged Mcintyre MD [Family Provider]
Prescriptions:
No Action
Eliquis 2.5 MG tablet
2.5 mg PO BID
cyanocobalamin (vitamin B-12) 1,000 MCG tablet
1,000 mcg PO DAILY
atorvastatin 10 MG tablet
10 mg PO HS
estradiol 1 MG tablet
1 mg PO DAILY
fluticasone propionate 1 SPRAY spray,suspension
1 spray intranasal BID
acetaminophen 325 MG tablet
650 mg PO Q4HPRN PRN (Reason: mild pain/ fever>100.5F) 0RF
bisacodyl [OneLAX Bisacodyl] 10 MG suppository
10 mg [place] DAILYPRN PRN (Reason: if mom ineffective) 0RF
Fleet Enema 19-7 gram/118 mL Enema
118 ml [place] DAILYPRN PRN (Reason: if no bm aftr dulcolax)
polyethylene glycol 3350 17 GRAMS powder in packet
17 grams PO DAILY
tamsulosin 0.4 MG capsule
0.4 mg PO DAILY
pantoprazole 40 MG tablet,delayed release (DR/EC)
40 mg PO DAILY
sennosides [senna] 8.6 mg Tablet
17.2 mg PO HS
insulin glargine 100 unit/mL Solution
14 unit SC HS
melatonin 3 mg Tablet
6 mg PO HS
levothyroxine 25 mcg Tablet
25 mcg PO DAILY
insulin aspart U-100 100 unit/mL Solution
0 sliding scale dose SC ACHS
Rx Instructions:
151-200=3units, 201-250=5units
ferrous sulfate 325 mg (65 mg iron) Tablet
325 mg PO BID
ipratropium-albuterol 0.5 mg-3 mg(2.5 mg base)/3 mL Solution For Nebulization
3 ml INHALATION R Q6HPRN PRN (Reason: sob)
magnesium hydroxide [Milk of Magnesia] 400 mg/5 mL Suspension
2,400 mg PO DAILYPRN PRN (Reason: if no bm by 3rd day)
Saccharomyces boulardii [Florastor] 250 mg Capsule
250 mg PO DAILY
carvedilol 12.5 mg Tablet
12.5 mg PO BID 30 Days Qty: 60 0RF
hydralazine 10 mg Tablet
10 mg PO Q6HPRN PRN (Reason: sbp > 150)
ammonium lactate [AmLactin] 12 % Lotion
1 applic TOPICAL DAILY
magnesium oxide 500 mg magnesium Tablet
500 mg PO FR
menthol-zinc oxide [Moisture Barrier Ointment] 0.44-20.6 % Ointment
1 applic TOPICAL TID
duloxetine 40 mg Capsule, Delayed Rel Sprinkle
40 mg PO DAILY
furosemide 20 mg Tablet
60 mg PO DAILY Qty: 90 0RF
dapagliflozin propanediol 10 mg Tablet
10 mg PO DAILY Qty: 30 0RF
guaifenesin 100 mg/5 mL Liquid
300 mg PO Q6HPRN PRN (Reason: Cough)
docusate sodium [Colace] 100 mg Capsule
100 mg PO DAILY
Discharge Date and Time
Discharge Date/Time: 12/01/24 10:07
Print Language: AMHARIC
[2024-12-01] MEDS: D5/0.9% SODIUM CHLORIDE IV (11:43)
== END 2024-12-01 10:07 | disposition hospice, inpatient (51) | DRG 871 ==
LOC: 2 NORTH 06:58
PROVIDERS: Internal Medicine; Specialist; ADMITTING PHYSICIAN Hospitalist; ATTENDING PHYSICIAN Internal Medicine; EMERGENCY PHYSICIAN Student in an Organized Health Care Education/Training Program; FAMILY PHYSICIAN Internal Medicine; OTHER PHYSICIAN Internal Medicine; OTHER PHYSICIAN Internal Medicine Critical Care Medicine; OTHER PHYSICIAN Urology
PROC: 0T9B70Z Drainage of Bladder with Drainage Device, Via Natural or Artificial Opening (ICD-10-PCS; 2024-11-26)
PROC: 03HB33Z Insertion of Infusion Device into Right Radial Artery, Percutaneous Approach (ICD-10-PCS; 2024-11-26)
PROC: 30243N1 Transfusion of Nonautologous Red Blood Cells into Central Vein, Percutaneous Approach (ICD-10-PCS; 2024-11-28)
DX: A41.9 Sepsis, unspecified organism (principal); G92.8 Other toxic encephalopathy; N17.0 Acute kidney failure with tubular necrosis; R65.21 Severe sepsis with septic shock; G93.41 Metabolic encephalopathy; J18.9 Pneumonia, unspecified organism; I50.32 Chronic diastolic (congestive) heart failure; N18.4 Chronic kidney disease, stage 4 (severe); I13.0 Hypertensive heart and chronic kidney disease with heart failure and stage 1 through stage 4 chronic kidney disease, or unspecified chronic kidney disease; D62 Acute posthemorrhagic anemia; E87.20 Acidosis, unspecified; N39.0 Urinary tract infection, site not specified; F03.94 Unspecified dementia, unspecified severity, with anxiety; J98.11 Atelectasis; Z51.5 Encounter for palliative care; E11.22 Type 2 diabetes mellitus with diabetic chronic kidney disease; E78.00 Pure hypercholesterolemia, unspecified; R06.03 Acute respiratory distress; L89.891 Pressure ulcer of other site, stage 1; I25.10 Atherosclerotic heart disease of native coronary artery without angina pectoris; N20.0 Calculus of kidney; R31.0 Gross hematuria; E83.51 Hypocalcemia; M06.9 Rheumatoid arthritis, unspecified; M79.7 Fibromyalgia; G89.4 Chronic pain syndrome; F32.A Depression, unspecified; K21.00 Gastro-esophageal reflux disease with esophagitis, without bleeding; R13.10 Dysphagia, unspecified; L89.152 Pressure ulcer of sacral region, stage 2; L89.621 Pressure ulcer of left heel, stage 1; L89.611 Pressure ulcer of right heel, stage 1; K58.9 Irritable bowel syndrome, unspecified; E88.09 Other disorders of plasma-protein metabolism, not elsewhere classified; N93.9 Abnormal uterine and vaginal bleeding, unspecified; I27.20 Pulmonary hypertension, unspecified; K80.20 Calculus of gallbladder without cholecystitis without obstruction; E11.649 Type 2 diabetes mellitus with hypoglycemia without coma; Z66 Do not resuscitate; Z96.653 Presence of artificial knee joint, bilateral; Z96.643 Presence of artificial hip joint, bilateral; Z90.710 Acquired absence of both cervix and uterus; Z79.01 Long term (current) use of anticoagulants; Z79.890 Hormone replacement therapy; Z79.4 Long term (current) use of insulin; Z86.718 Personal history of other venous thrombosis and embolism; Z88.5 Allergy status to narcotic agent; Z88.0 Allergy status to penicillin; Z88.8 Allergy status to other drugs, medicaments and biological substances; Z91.011 Allergy to milk products; Z87.19 Personal history of other diseases of the digestive system; Z86.711 Personal history of pulmonary embolism; Z95.828 Presence of other vascular implants and grafts; Z80.8 Family history of malignant neoplasm of other organs or systems; Z82.49 Family history of ischemic heart disease and other diseases of the circulatory system; Z83.3 Family history of diabetes mellitus; Z82.0 Family history of epilepsy and other diseases of the nervous system
CPT/HCPCS: 36556; 51702; 71045; 74176; 80048; 80053; 81003; 81015; 82010; 82248; 82306; 82533; 82805; 82962; 83010; 83036; 83540; 83550; 83605; 83615; 83735; 83880; 84100; 84443; 84484; 85025; 85027; 85379; 85610; 85730; 86850; 86900; 86901; 86920; 86922; 87040; 87070; 87086; 87147; 92526; 92610; 92612; 93005; 93306; 96361; 96365; 96366; 96367; 99291; P9016; P9047

== ENCOUNTER 2024-12-01 10:08 | Inpatient (IN) | payer OTHER, SELFPAY ==
[2024-12-01 08:00] VITALS: BP 123/87
[2024-12-01 08:30] VITALS: BP 123/87
--- NOTE | 2024-12-01 11:31 | HPS.HSE ---
Family Physician
-
Family Physician: INTERVIEWE UNKNOWN - PT NOT
Chief Complaint
-
Inpatient hospice
History of Present Illness
79-year-old presents from local intermediate for lethargy and marked hypotension. She was in clinical shock. Suspected hypovolemia/blood loss related with septic shock could not be ruled out. There was a concern about a UTI and pneumonia. She
was put on Levophed and dopamine and was given IV fluids. CT of the abdomen pelvis showed right lower lobe pneumonia concern. Her globin was 7.7 with her most recent baseline of 11.6. She had transfusion support.
Acute medical issues made her renal function worse. She already had chronic kidney disease stage IV and now she has acute kidney injury. Creatinine went up to 7.2 from her baseline of 2.0. It was felt not a candidate for dialysis. She had
declined hemodialysis support in the past. At the current acute organ dysfunction on chronic organ dysfunction and no support of hemodialysis the prognosis was poor. She continued to do poorly. She was transition to inpatient hospice today.
Today she was lethargic. Hard to converse. Very weak. Looks comfortable. Afebrile. Heart rate 104. Blood pressure 123/87. No respiratory distress. Chest anteriorly clear. Abdomen is soft.
Discussed with son-the plan yesterday was comfort measures and transition to hospice today. Hospice team discussed with the son and he signed and heard for hospice today which is appropriate. Amitted to inpatient hospice at [facility].
Medical History
Past Medical History
Past Medical History: Reports Other
Additional Past Medical History:
Hypertension
DM-II
CKD IV
HFpEF
GERD
History of DVT
Past Surgical History: Reports Other
Additional Past Surgical History:
Hysterectomy
Bilateral JADA
Bilateral TKA
Rotator Cuff Repair
IVC Filter Placement
Social History
Unable to obtain full social history at this time due to: Dementia
Family History
Family History: Unable to Obtain
Allergies / Home Medications
Allergies reflects when Allergies were last updated in [facility].
Home Medications with original date entered in [facility]
Allergy/Medication List:
Allergies
Allergy/AdvReac Type Severity Reaction Status Date / Time
daptomycin Allergy CK>5000 Verified 07/03/24 22:45
doxylamine Allergy leg Verified 07/03/24 22:45
weakness
lactose Allergy INTOLERANT Verified 07/03/24 22:45
morphine Allergy Nausea / Verified 07/03/24 22:45
Vomiting
Penicillins Allergy Swelling/ch Verified 07/03/24 22:45
ildhood
Home Medications
apixaban 2.5 mg tablet (Eliquis) 2.5 mg PO BID Blood clot prevention/tx 11/23/20
cyanocobalamin (vitamin B-12) 1,000 mcg tablet 1,000 mcg PO DAILY Supplement 12/19/20
atorvastatin 10 mg tablet 10 mg PO HS High cholesterol 05/18/21
estradiol 1 mg tablet 1 mg PO DAILY Hormonal agent 05/18/21
fluticasone propionate 50 mcg/actuation nasal spray,suspension 1 spray intranasal BID Congestion 05/18/21
acetaminophen 325 mg tablet 650 mg (2 x 325 mg) PO Q4HPRN PRN mild pain/ fever>100.5F 05/27/21
bisacodyl 10 mg rectal suppository (OneLAX Bisacodyl) 10 mg [place] DAILYPRN PRN if mom ineffective 05/27/21
pantoprazole 40 mg tablet,delayed release 40 mg PO DAILY Gastrointestinal Issue 01/18/23
polyethylene glycol 3350 17 gram oral powder packet 17 grams PO DAILY Constipation 01/18/23
sodium phosphates 19 gram-7 gram/118 mL enema (Fleet Enema) 118 ml [place] DAILYPRN PRN if no bm aftr dulcolax 01/18/23
tamsulosin 0.4 mg capsule 0.4 mg PO DAILY Urinary Issue 01/18/23
Saccharomyces boulardii 250 mg capsule (Florastor) 250 mg PO DAILY Gastrointestinal Issue 07/04/24
ferrous sulfate 325 mg (65 mg iron) tablet 325 mg PO BID Supplement 07/04/24
insulin aspart U-100 100 unit/mL subcutaneous solution 0 sliding scale dose SC AC Diabetes 07/04/24
insulin glargine 100 unit/mL subcutaneous solution 14 unit SC HS Diabetes 07/04/24
ipratropium 0.5 mg-albuterol 3 mg (2.5 mg base)/3 mL nebulization soln 3 ml inhalation R Q6HPRN PRN sob 07/04/24
levothyroxine 25 mcg tablet 25 mcg PO DAILY Thyroid 07/04/24
magnesium hydroxide 400 mg/5 mL oral suspension (Milk of Magnesia) 2,400 mg PO DAILYPRN PRN if no bm by 3rd day 07/04/24
melatonin 3 mg tablet 6 mg PO HS Sleep 07/04/24
sennosides 8.6 mg tablet (senna) 17.2 mg PO HS Constipation 07/04/24
carvedilol 12.5 mg tablet 12.5 mg PO BID 30 days #60 tabs 07/09/24
ammonium lactate 12 % lotion (AmLactin) 1 applic topical DAILY bue/ble 08/27/24
duloxetine 40 mg capsule,delayed release sprinkle 40 mg PO DAILY Mental Health/Anxiety 08/27/24
hydralazine 10 mg tablet 10 mg PO Q6HPRN PRN sbp > 150 08/27/24
magnesium oxide 500 mg PO FR Supplement 08/27/24
menthol 0.44 %-zinc oxide 20.6 % topical ointment (Moisture Barrier Ointment) 1 applic topical TID sacrum/groin 08/27/24
dapagliflozin propanediol 10 mg tablet 10 mg PO DAILY #30 tabs 09/02/24
furosemide 20 mg tablet 60 mg (3 x 20 mg) PO DAILY #90 tabs 09/02/24
docusate sodium 100 mg capsule (Colace) 100 mg PO DAILY 11/26/24
guaifenesin 100 mg/5 mL oral liquid 250 mg PO Q6H PRN Cough 11/26/24
Review of Systems
-
Unable to obtain full review of systems at this time due to: Other (lethargy)
Physical Exam
Physical Exam
General: Comfortable
Respiratory: Clear (anteriorly) and Non Labored Respirations; No Accessory Resp Muscle Use
Cardiac: S1/S2, Regular Rhythm and Tachycardia
GI: Soft
Neuro: No Alert
Psych: Calm
Impression/Plan
-
Primary diagnosis:
Clinical shock
Acute blood loss anemia
Acute kidney due to chronic kidney disease stage IV
Secondary diagnosis:
Chronic heart failure with preserved EF
Diabetes mellitus type 2
History of DVT
79-year-old presents from local intermediate for ataxia and marked hypotension. She was in clinical shock. Suspected hypovolemia/blood loss related with septic shock could not be ruled out. There was a concern about a UTI and pneumonia. She was
put on Levophed and dopamine and was given IV fluids. CT of the abdomen pelvis showed right lower lobe pneumonia concern. Her globin was 7.7 with her most recent baseline of 11.6. She had transfusion support.
Acute medical issues made her renal function worse. She already had chronic kidney disease stage IV and now she has acute kidney injury. Creatinine went up to 7.2 from her baseline of 2.0. It was felt not a candidate for dialysis. She had
declined hemodialysis support in the past. At the current acute organ dysfunction on chronic organ dysfunction and no support of hemodialysis the prognosis was poor. She continued to do poorly. She was transition to inpatient hospice today.
Today she was lethargic. Hard to converse. Very weak. Looks comfortable. Afebrile. Heart rate 104. Blood pressure 123/87. No respiratory distress. Chest anteriorly clear. Abdomen is soft.
Discussed with son-the plan yesterday was comfort measures and transition to hospice today. Hospice team discussed with the son and he signed and heard for hospice today which is appropriate. Discharged to inpatient hospice at [facility].
Patient placed on hospice care /orders
--- NOTE | 2024-12-01 11:33 | CM ---
Reviewed the chart notes. Patient transitioned to [facility]. CM continues to be available to patient/family.
Plan: [facility].
--- NOTE | 2024-12-01 12:27 | HOSPNOTE ---
Admitted patient [facility] for management of pain that can not be managed in an outpatient environment. Case discussed with RICHARD Torre and Dr Delacruz who are in agreement. Consents were signed by patient's son Neville. Discharge planing to commence
once symptoms have been managed.
[2024-12-01] MEDS: DILAUDID 0.25 MG IV ×3 (14:48→23:15)
[2024-12-01] MEDS: ROBINUL 0.2 MG IV (14:48)
[2024-12-01] MEDS: VALIUM INJECTION 5 MG IV ×2 (18:05→23:12)
[2024-12-01 19:34] VITALS: BP 149/82
[2024-12-02] MEDS: DILAUDID 0.25 MG IV ×2 (01:15→09:53)
[2024-12-02 07:55] VITALS: BP 112/76
--- NOTE | 2024-12-02 08:35 | HOSPNOTE ---
Gas Cutting Machine Operator visited 79 year old patient to conduct Initial CABLE TELEVISION ACCESS COORDINATOR Assessment. Patient recently admitted onto Hospice Services and [facility] Level of Care with the Primary Diagnosis of Chronic Kidney Disease Stage 4. Nurse reported medications
administered and patient resting. CABLE TELEVISION ACCESS COORDINATOR greeted patient upon entering her room, patient turned her ahead and looked at CABLE TELEVISION ACCESS COORDINATOR. Patient appeared to be resting comfortably, no signs of distress observed. No family members present during this visit. Patient
reported she's okay and denies pain and prefers to be called 'Pat'. Patient reported she has two children Neville and Basia and no grandchildren, she reported she love her children. Patient reported she's [employer] and affiliates with [employer], she reported she wants to be buried. She requested something to drink, CABLE TELEVISION ACCESS COORDINATOR notified the Nurse. Patient's voice became more rapsy and CABLE TELEVISION ACCESS COORDINATOR agreed to end the visit to ensure patient rest. Prayer and Emotional Support Provided CABLE TELEVISION ACCESS COORDINATOR
contacted patient's son Neville to check on him and the family and to provide updates from today's visit. Neville reported he and Basia are okay. He reported patient has a an 18 year old granddaughter and 20 year old grandson, he reported he and his son
visited patient yesterday and will be visiting this afternoon as they're in [place], [place]. 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 Family appeared to
be coping appropriately. He reported he's not interested in [facility] however, Basia might be. Arrangements to be provided.
Patient meets [facility] criteria for SN assessments and management of pain that could not be managed in an Outpatient setting. Discharge planning continues.
CABLE TELEVISION ACCESS COORDINATOR will provide support services and monitor for additional services once a week while on [facility] Level of Care.
--- NOTE | 2024-12-02 09:40 | W.PN.HOSP.TC ---
Today's Communication/Plan
-
Continue with hospice level of care
Assessment / Plan
Assessment / Plan
Primary diagnosis:
Clinical shock
Acute blood loss anemia
Acute kidney due to chronic kidney disease stage IV
Secondary diagnosis:
Chronic heart failure with preserved EF
Diabetes mellitus type 2
History of DVT
Patient transition to inpatient hospice 12/01
Continue current hospice level of care and medication. Patient is comfortable.
Anticipated Discharge: > 48 hours
Subjective/Interval History
-
Date of Service: December 02, 2024
And hospice level of care
Patient is comfortable. Slightly lethargic but arousable. Denies pain or shortness of breath.
Objective Data
-
Vital Signs:
Vital Signs
Temp Pulse Resp BP Pulse Ox
98.0 F 110 16 112/76 96
12/02/24 07:55 12/02/24 07:55 12/02/24 07:55 12/02/24 07:55 12/02/24 07:55
I&O
12/01/24 12/02/24 12/03/24
06:59 06:59 06:59
Intake Total 50 / 50
Output Total 375 / 375
Balance -325 / -325
Physical Exam
-
General: Comfortable
Respiratory: Non Labored Respirations; Negative Accessory Resp Muscle Use
--- NOTE | 2024-12-02 09:43 | HOSPNOTE ---
Patient resting comfortably, no s/s of pain at this time. PRN dialudid had been given prior to arrival and multiple doses in the previous 24 hours. Patient remains [facility] appropriate for the management of pain. Hospice will continue to visit daily.
Discharge planning to commence once symptoms are managed.
[2024-12-02] MEDS: ROBINUL 0.2 MG IV (09:53)
[2024-12-02] MEDS: VALIUM INJECTION 10 MG IV (09:53)
--- NOTE | 2024-12-02 10:13 | CM ---
Reviewed the chart notes. Continues on [facility] hospice. CM continues to be available to patient/family.
--- NOTE | 2024-12-02 11:07 | W.PN.DEATH ---
Pronouncement of
-
Called to see patient to pronounce.
No spontaneous heart tones or respirations noted.
Patient not responsive to verbal stimuli.
Patient is pronounced .
Time of : 10:30
Date of : 12/02/24
Cause of : Acute kidney injury on chronic kidney disease 4
Family Notified: Yes
--- NOTE | 2024-12-02 11:09 | W.DCSUMMARY ---
Discharge Summary
Discharge Data
Date of Admission: 12/01/24
Date of Discharge: 12/02/24
-
Pending Results: No
Hospital Course
Primary diagnosis:
Clinical shock
Acute blood loss anemia
Acute kidney due to chronic kidney disease stage IV
Secondary diagnosis:
Chronic heart failure with preserved EF
Diabetes mellitus type 2
History of DVT
Hospital course:
79-year-old presents from local [place] [facility] for ataxia and marked hypotension. She was in clinical shock. Suspected hypovolemia/blood loss related with septic shock could not be ruled out. There was a concern about a UTI and pneumonia. She was
put on Levophed and dopamine and was given IV fluids. CT of the abdomen pelvis showed right lower lobe pneumonia concern. Her globin was 7.7 with her most recent baseline of 11.6. She had transfusion support.
Acute medical issues made her renal function worse. She already had chronic kidney disease stage IV and now she has acute kidney injury. Creatinine went up to 7.2 from her baseline of 2.0. It was felt not a candidate for dialysis. She had
declined hemodialysis support in the past. At the current acute organ dysfunction on chronic organ dysfunction and no support of hemodialysis the prognosis was poor. She continued to do poorly. She was transition to inpatient hospice 12/01/24 and
she peacefully today at 10:30 AM.
Discharge Plan
-
Referrals:
UNKNOWN - PT NOT,INTERVIEWE [Family Provider]
Prescriptions:
No Action
Eliquis 2.5 MG tablet
2.5 mg PO BID
cyanocobalamin (vitamin B-12) 1,000 MCG tablet
1,000 mcg PO DAILY
atorvastatin 10 MG tablet
10 mg PO HS
estradiol 1 MG tablet
1 mg PO DAILY
fluticasone propionate 1 SPRAY spray,suspension
1 spray intranasal BID
acetaminophen 325 MG tablet
650 mg PO Q4HPRN PRN (Reason: mild pain/ fever>100.5F) 0RF
bisacodyl [OneLAX Bisacodyl] 10 MG suppository
10 mg [place] DAILYPRN PRN (Reason: if mom ineffective) 0RF
Fleet Enema 19-7 gram/118 mL Enema
118 ml [place] DAILYPRN PRN (Reason: if no bm aftr dulcolax)
polyethylene glycol 3350 17 GRAMS powder in packet
17 grams PO DAILY
tamsulosin 0.4 MG capsule
0.4 mg PO DAILY
pantoprazole 40 MG tablet,delayed release (DR/EC)
40 mg PO DAILY
sennosides [senna] 8.6 mg Tablet
17.2 mg PO HS
insulin glargine 100 unit/mL Solution
14 unit SC HS
melatonin 3 mg Tablet
6 mg PO HS
levothyroxine 25 mcg Tablet
25 mcg PO DAILY
insulin aspart U-100 100 unit/mL Solution
0 sliding scale dose SC ACHS
Rx Instructions:
151-200=3units, 201-250=5units
ferrous sulfate 325 mg (65 mg iron) Tablet
325 mg PO BID
ipratropium-albuterol 0.5 mg-3 mg(2.5 mg base)/3 mL Solution For Nebulization
3 ml INHALATION R Q6HPRN PRN (Reason: sob)
magnesium hydroxide [Milk of Magnesia] 400 mg/5 mL Suspension
2,400 mg PO DAILYPRN PRN (Reason: if no bm by 3rd day)
Saccharomyces boulardii [Florastor] 250 mg Capsule
250 mg PO DAILY
hydralazine 10 mg Tablet
10 mg PO Q6HPRN PRN (Reason: sbp > 150)
ammonium lactate [AmLactin] 12 % Lotion
1 applic TOPICAL DAILY
magnesium oxide 500 mg magnesium Tablet
500 mg PO FR
menthol-zinc oxide [Moisture Barrier Ointment] 0.44-20.6 % Ointment
1 applic TOPICAL TID
duloxetine 40 mg Capsule, Delayed Rel Sprinkle
40 mg PO DAILY
guaifenesin 100 mg/5 mL Liquid
300 mg PO Q6HPRN PRN (Reason: Cough)
docusate sodium [Colace] 100 mg Capsule
100 mg PO DAILY
carvedilol 12.5 mg tablet
12.5 mg PO BID
furosemide 20 mg tablet
60 mg PO DAILY
dapagliflozin propanediol 10 mg tablet
10 mg PO DAILY
Discharge Date and Time
Print Language: FRENCH
== END 2024-12-02 10:30 | disposition expired | DRG 951 ==
LOC: 2 NORTH 10:08
PROVIDERS: ADMITTING PHYSICIAN Internal Medicine
DX: Z51.5 Encounter for palliative care (principal); J18.9 Pneumonia, unspecified organism; R57.9 Shock, unspecified; D62 Acute posthemorrhagic anemia; N17.9 Acute kidney failure, unspecified; N18.4 Chronic kidney disease, stage 4 (severe); I50.32 Chronic diastolic (congestive) heart failure; I13.0 Hypertensive heart and chronic kidney disease with heart failure and stage 1 through stage 4 chronic kidney disease, or unspecified chronic kidney disease; E11.22 Type 2 diabetes mellitus with diabetic chronic kidney disease; F03.90 Unspecified dementia, unspecified severity, without behavioral disturbance, psychotic disturbance, mood disturbance, and anxiety; K21.9 Gastro-esophageal reflux disease without esophagitis; Z86.718 Personal history of other venous thrombosis and embolism; Z79.899 Other long term (current) drug therapy